=== PATIENT | male | born 1945 | race Caucasian/White ===

== ENCOUNTER 2018-04-25 12:27 | Day surgery (SDC) | payer MEDICARE, BC, SELFPAY ==
[2018-04-25 12:47] VITALS: BP 140/99; PULSE 58; RESP 16; TEMP 36.7; O2SAT 97
[2018-04-25] MEDS: Lactated Ringers 1,000 ML 80 ML IV (13:10)
--- NOTE | 2018-04-25 13:10 | W.PM.HP.N ---
Date of service: 04/25/18 Time of Service: 13:11 Assessment and Plan (1) Urothelial cell carcinoma of bladder: Current visit: Yes Status: Acute For cystoscopy with possible transurethral resection of bladder tumor. If no visible tumor is seen, we will switch his surveillance cystoscopies out to 6 months History of Present Illness Chief Complaint: Bladder cancer Narrative: This is a 72-year-old gentleman who has a history of noninvasive urothelial cell carcinoma of the bladder. He comes in for surveillance cystoscopy and possible transurethral resection. His last occurrence was April 2017. He is not having any gross hematuria. He has no flank pain. Review of Systems Constitutional Denies chills and Denies fever(s) Eyes Denies blurry vision and Denies loss of vision ENT Denies sore throat Cardiovascular Denies chest pain, Denies syncope and Denies irregular heart rhythm Respiratory Denies cough and Denies hemoptysis Gastrointestinal Denies nausea and Denies vomiting Musculoskeletal Reports arthralgias Neurologic Denies confusion, Denies syncope and Denies loss of vision Psychiatric Denies confusion PFSH Family History Mother Personal history of malignant neoplasm Father Hyperlipidemia Brother Personal history of malignant neoplasm Medical History DM (diabetes mellitus) Hypertension Hypothyroidism Social History Smoking/Tobacco Use Status: Former Tobacco Use Surgical History Colonoscopy - MAC (07/13/17) PROCEDURES Repair of inguinal hernia (~2003) TURBT Meds Home Medications Medication Instructions Recorded Confirmed Type ibuprofen 600 mg PO PRN 07/14/13 04/25/18 History naproxen sodium [Aleve] 440 mg PO daily prn 03/02/16 04/25/18 History allopurinol 100 mg PO DAILY #90 tab-cap 03/14/17 04/25/18 History levothyroxine 137 mcg PO DAILY #90 tab-cap 07/25/17 04/25/18 Rx Atorvastatin Calcium 10 mg PO DAILY #90 tab-cap 08/28/17 04/25/18 Clinic amlodipine 5 mg PO DAILY #90 tab-cap 09/07/17 04/23/18 Rx lisinopril-hydrochlorothiazide 1 tab-cap PO DAILY #90 tab-cap 10/12/17 04/25/18 Rx Proventil Hfa 1 - 2 puff INHALATION Q4H PRN #1 10/24/17 04/25/18 Clinic inhaler Mobile Broadcast NetworktoDecalog Ultra Test Strips 1 ea MISCELLANEOUS DAILY #90 strip 11/14/17 04/25/18 Clinic blood-glucose meter [Onetouch #1 kit 11/14/17 Rx Ultra2] lancets [Onetouch Lancets] #90 ea 11/14/17 Rx metformin 500 mg PO DAILY #90 tab 01/18/18 04/25/18 Rx fluoxetine 20 mg capsule 20 mg PO DAILY #90 cap 03/20/18 04/25/18 Rx dextromethorphan HBr [Day-Time 10 mg PO Q4H PRN 04/25/18 04/25/18 History Cough] Allergies Allergy/AdvReac Type Severity Reaction Status Date / Time amlodipine AdvReac Intermediate headache Unverified 04/25/18 12:38 Exam Narrative Exam Narrative: He is in no current distress. He is cooperative. He does not appear septic or toxic. His vital signs documented elsewhere in the chart. His chest wall motion is normal he is not short of breath at rest. His cardiac exam reveals regular rate and rhythm with no murmurs Abdomen is soft with no masses there is no guarding or rebound tenderness There is no edema in the lower extremities no amputations or deformities are found He is awake, alert and oriented. Results Last Vital Signs Temp 36.7 C 04/25/18 12:47 Pulse 58 L 04/25/18 12:47 Resp 16 04/25/18 12:47 BP 140/99 H 04/25/18 12:47 Pulse Ox 97 04/25/18 12:47
[2018-04-25] MEDS: Lidocaine 2% Jelly 11 ML SYR (13:57)
--- NOTE | 2018-04-25 14:08 | W.PM.DSUDISC ---
Discharge Plan Disposition Patient Disposition: HOME Condition: Stable Discharge Details Reason For Visit: BLADDER CA Attending Provider: Mode Nolasco Primary Care Provider: Etienne Gomez Home Meds and New Rx's Prescriptions: No Action ibuprofen 600 MG tablet 600 mg PO PRN RF: 0 naproxen sodium [Aleve] 220 MG capsule 440 mg PO daily prn RF: 0 allopurinol 100 MG tablet 100 mg PO DAILY Qty: 90 RF: 3 levothyroxine 137 MCG tablet 137 mcg PO DAILY Qty: 90 RF: 3 Atorvastatin Calcium 10 MG tablet 10 mg PO DAILY Qty: 90 RF: 3 amlodipine 5 MG tablet 5 mg PO DAILY Qty: 90 RF: 4 lisinopril-hydrochlorothiazide 1 EACH tablet 1 tab-cap PO DAILY Qty: 90 RF: 3 PROVENTIL HFA 18 GM HFA.AER.AD 1 - 2 puff Inhalation Q4H PRN Qty: 1 RF: 0 lancets [IPS Game FarmersTouch UltraSoft Lancets] 1 EACH misc 1 ea Miscellaneous DAILY Qty: 90 RF: 4 blood-glucose meter [IndiPharmuch Ultra2] 1 EACH kit 1 ea Miscellaneous DAILY Qty: 1 RF: 3 CrowdcastUCH ULTRA TEST STRIPS 1 EACH strip 1 ea Miscellaneous DAILY Qty: 90 RF: 3 metformin 500 MG tablet,ER fernando.retention 24 hr 500 mg PO DAILY Qty: 90 RF: 3 fluoxetine [Prozac] 20 mg capsule 20 mg PO DAILY Qty: 90 RF: 3 dextromethorphan HBr [Day-Time Cough] 5 mg/5 mL Syrup 10 mg PO Q4H PRNRF: 0 Discharge Instructions Additional Instructions: Pt will need next cystoscopy in 6 months - my office will contact him to arrange Activity:: Activity as Tolerated Diet:: As Tolerated Discharge Orders Discharge Orders: Discharge Order (Routine); Ordered 04/25/18 Ordered By: Mode Nolasco DS: Diagnosis Discharge Diagnosis (1) Urothelial cell carcinoma of bladder: Status: Acute
--- NOTE | 2018-04-25 14:11 | PDOC.DSDIS_ITS ---
Discharge Plan Disposition Patient Disposition: HOME Condition: Stable Discharge Details Reason For Visit: BLADDER CA Attending Provider: Mode Nolasco Primary Care Provider: Etienne Gomez Home Meds and New Rx's Prescriptions: No Action ibuprofen 600 MG tablet 600 mg PO PRN RF: 0 naproxen sodium [Aleve] 220 MG capsule 440 mg PO daily prn RF: 0 allopurinol 100 MG tablet 100 mg PO DAILY Qty: 90 RF: 3 levothyroxine 137 MCG tablet 137 mcg PO DAILY Qty: 90 RF: 3 Atorvastatin Calcium 10 MG tablet 10 mg PO DAILY Qty: 90 RF: 3 amlodipine 5 MG tablet 5 mg PO DAILY Qty: 90 RF: 4 lisinopril-hydrochlorothiazide 1 EACH tablet 1 tab-cap PO DAILY Qty: 90 RF: 3 PROVENTIL HFA 18 GM HFA.AER.AD 1 - 2 puff Inhalation Q4H PRN Qty: 1 RF: 0 lancets [NaveraTouch UltraSoft Lancets] 1 EACH misc 1 ea Miscellaneous DAILY Qty: 90 RF: 4 blood-glucose meter [doughuch Ultra2] 1 EACH kit 1 ea Miscellaneous DAILY Qty: 1 RF: 3 Redu.usUCH ULTRA TEST STRIPS 1 EACH strip 1 ea Miscellaneous DAILY Qty: 90 RF: 3 metformin 500 MG tablet,ER fernando.retention 24 hr 500 mg PO DAILY Qty: 90 RF: 3 fluoxetine [Prozac] 20 mg capsule 20 mg PO DAILY Qty: 90 RF: 3 dextromethorphan HBr [Day-Time Cough] 5 mg/5 mL Syrup 10 mg PO Q4H PRNRF: 0 Discharge Instructions Additional Instructions: Pt will need next cystoscopy in 6 months - my office will contact him to arrange Activity:: Activity as Tolerated Diet:: As Tolerated Discharge Orders Discharge Orders: Discharge Order (Routine); Ordered 04/25/18 Ordered By: Mode Nolasco DS: Diagnosis Discharge Diagnosis (1) Urothelial cell carcinoma of bladder: Status: Acute
[2018-04-25 14:35] VITALS: BP 139/92; PULSE 50; RESP 16; TEMP 36.5; O2SAT 99
[2018-04-25] MEDS: Phenazopyridine 200 MG TAB PO (14:45)
--- NOTE | 2018-04-25 16:06 | ROE_ITS ---
DATE OF SURGERY: April 25, 2018 PREOPERATIVE DIAGNOSIS: B ladder cancer. POSTOPERATIVE DIAGNOSIS: Same with no recurrence. PROCEDURE: Cystoscopy. SURGEON: Mode Nolasco M.D. ANESTHESIA: MAC with local. COMPLICATIONS: None. ESTIMATED BLOOD LOSS: Minimal. HISTORY: This is a 72-year-old gentleman who has a history of low grade noninvasive urothelial cell carcinoma of the bladder. His last occurrence was in April of 2017. He presents for surveillance cystoscopy. He is not having any gross hematuria or other lower urinary tract symptoms. OPERATIVE REPORT: The patient was brought to the operating room on 04/25/18. After being given MAC , he was placed in the dorsal lithotomy position. His genitalia was prepped and draped. 2% Xylocaine jelly was instilled into the urethra to act as a local anesthetic. A 22 Persian rigid c ystoscope was then passed through the urethra into the bladder. The urethra was inspected with a 30 degree lens. The pendulous, bulbous and membranous urethrae all appeared normal with no strictures. The prostatic urethra showed some lateral lobe enlargement and a rather prominent median lobe. No papillary lesio ns were noticed along the urethral mucosa. Once the bladder neck was entered, the bladder mucosa was inspected using both a 30 and a 70 degree l ens. The bladder was moderately trabeculated but I found no evidence of papillary or nodular lesions . As previously mentioned, there was a rather prominent median lobe. Both ureteral orifices were vi sualized and they appeared normal. Based on this examination, I found no evidence of recurrent bladder tumors. The bladder was emptied and the cystoscope was withdrawn.
== END 2018-04-25 15:17 | disposition home or self-care (01) ==
PROVIDERS: PCP Emergency Medicine; Visit Provider Urology
PROC: 0TBB8ZZ Excision of Bladder, Via Natural or Artificial Opening Endoscopic (ICD-10-PCS; CPT 52000; principal; 2018-04-25 13:30)
DX: Z08 Encounter for follow-up examination after completed treatment for malignant neoplasm (principal); Z85.51 Personal history of malignant neoplasm of bladder; N32.89 Other specified disorders of bladder
CPT/HCPCS: 52000; NC; J0690; J2250; J3010

== ENCOUNTER → 2018-04-30 09:31 | Outpatient (BNVA) | payer MEDICARE, SELFPAY | PROVIDERS: Visit Provider Urology | DX: R69 Illness, unspecified (principal) ==

== ENCOUNTER 2018-08-14 11:08 | Outpatient (CLI) | payer MEDICARE, BC, SELFPAY ==
[2018-08-14 13:09] LABS: Hemoglobin A1C 6.3 % (4.5-6.2)
[2018-08-14 13:23] LABS: TSH 1.69 uIU/mL (0.358-3.74)
[2018-08-14 17:38] LABS: Cholesterol 125 mg/dL (50-200); HDL Cholesterol 46 mg/dL (40-60); LDL CHOLESTEROL 63 mg/dL (<100); Triglyceride 104 mg/dL (30-150)
== END 2018-08-14 11:28 ==
PROVIDERS: PCP Emergency Medicine; Visit Provider Emergency Medicine
DX: E03.9 Hypothyroidism, unspecified (principal); E78.00 Pure hypercholesterolemia, unspecified; E11.9 Type 2 diabetes mellitus without complications
CPT/HCPCS: 36415; 80061; 83721; 83036; 84443

== ENCOUNTER 2018-11-07 07:11 | Day surgery (SDC) | payer MEDICARE, BC, SELFPAY ==
[2018-11-07 07:34] VITALS: BP 134/89; PULSE 66; RESP 16; TEMP 36.4; O2SAT 95
[2018-11-07] MEDS: Lactated Ringers 1,000 ML 80 ML IV (07:56)
--- NOTE | 2018-11-07 08:25 | HPE_ITS ---
Assessment and Plan (1) Urothelial cell carcinoma of bladder: Current visit: No Status: Acute For surveillance cystoscopy History of Present Illness Chief Complaint: Bladder cancer Narrative: This is a 73 year old man who has a history of urothelial cell carcinoma of the bladder. He presents for surveillance cystoscopy and possible TURBT. His last occurrance was 12/2017. His last pathology was low grade, noninvasive. Review of Systems Constitutional Comments: No fevers or chills No vision change or dysphasia c/o diabetes and hypothyroidism No shortness of breath, cough or hemoptysis No chest pain No nausea, vomiting, hepatitis, ulcers, jaundice, diarrhea or constipation No seizures, strokes or peripheral neuropathy No bleeding disorders or anemia No gout but elevated uric acid levels PFSH Family History Mother Personal history of malignant neoplasm Father Hyperlipidemia Brother Personal history of malignant neoplasm Social History Smoking/Tobacco Use Status: Former Tobacco Use Quit Date: 07/16/79 Alcohol Intake: current Alcohol Intake frequency: a few times a month Drug use: Never Details: last , sunday Do you feel safe at home: Yes Do you feel safe in your relationship?: Yes Additional Social history: NO Meds Home Medications Medication Instructions Recorded Confirmed Type ibuprofen 600 mg PO PRN 07/14/13 11/07/18 History naproxen sodium [Aleve] 440 mg PO daily prn 03/02/16 11/07/18 History lisinopril-hydrochlorothiazide 1 tab-cap PO DAILY #90 tab-cap 10/12/17 11/07/18 Rx Proventil Hfa 1 - 2 puff INHALATION Q4H PRN #1 10/24/17 11/05/18 Clinic inhaler Onetouch Ultra Test Strips 1 ea MISCELLANEOUS DAILY #90 strip 11/14/17 08/14/18 Clinic blood-glucose meter [Onetouch #1 kit 11/14/17 08/14/18 Rx Ultra2] lancets [Nanobiotixtouch Lancets] #90 ea 11/14/17 08/14/18 Rx metformin 500 mg PO DAILY #90 tab 01/18/18 11/07/18 Rx fluoxetine 20 mg capsule 20 mg PO DAILY #90 cap 03/20/18 11/07/18 Rx allopurinol 100 mg tablet 100 mg PO DAILY #90 tab-cap 05/15/18 11/07/18 Rx levothyroxine 137 mcg tablet 137 mcg PO DAILY #90 tab-cap 08/27/18 11/07/18 Rx atorvastatin 20 mg PO DAILY 11/05/18 11/07/18 History Allergies Allergy/AdvReac Type Severity Reaction Status Date / Time amlodipine AdvReac Intermediate headache Verified 11/05/18 16:31 Exam Const General: cooperative, healthy appearing and comfortable Neck Neck: supple Thyroid: no masses Resp Auscultation: clear to auscultation bilaterally Cardio Rate: regular rate Rhythm: regular rhythm GI Palpation: soft and no masses Neuro General: alert, awake and oriented x3 Results Last Vital Signs Temp 36.4 C L 11/07/18 07:34 Pulse 66 11/07/18 07:34 Resp 16 11/07/18 07:34 BP 134/89 11/07/18 07:34 Pulse Ox 95 11/07/18 07:34
[2018-11-07] MEDS: CIPROFLOXACIN 400 MG/200 ML BAG 200 MG IVPB (08:50)
[2018-11-07] MEDS: Lidocaine 2% Jelly 6 ML SYR (09:02)
--- NOTE | 2018-11-07 09:05 | PROST_PTH ---
PATIENT: Alfa Leon LOC: [facility] U#:[id number] AGE/SX: 73/M ROOM: RE11/07/[address]: Mode Nolasco MD : [id number] BED: DIS: 11/07/2018 SPEC #: [id number] RECD: 11/07/18 12:05 STATUS: BELA REAlexy #: [id number] IRINA: 11/07/18 09:[address]: Mode Nolasco DEPT: Surgical Specimen RECD BY: Alis Toussaint ENTERED: 11/07/18 12:06 SP TYPE: PROST OTHR DR: Etienne Gomez DO Tissues: 1 - PROSTATE CURRETTINGS Procedures: GROSS AND MICRO LEVEL 4 Comments: [id number]
--- NOTE | 2018-11-07 09:22 | W.PM.DSUDISC ---
Discharge Plan Disposition Patient Disposition: HOME Condition: Stable Discharge Details Reason For Visit: surgery Attending Provider: Mode Nolasco Primary Care Provider: Etienne Gomez Home Meds and New Rx's Prescriptions: No Action ibuprofen 600 MG tablet 600 mg PO PRN RF: 0 naproxen sodium [Aleve] 220 MG capsule 440 mg PO daily prn RF: 0 lisinopril-hydrochlorothiazide 1 EACH tablet 1 tab-cap PO DAILY Qty: 90 RF: 3 PROVENTIL HFA 18 GM HFA.AER.AD 1 - 2 puff Inhalation Q4H PRN Qty: 1 RF: 0 lancets [Jaschauch UltraSoft Lancets] 1 EACH misc 1 ea Miscellaneous DAILY Qty: 90 RF: 4 blood-glucose meter [Jaschauch Ultra2] 1 EACH kit 1 ea Miscellaneous DAILY Qty: 1 RF: 3 DraftDayUCH ULTRA TEST STRIPS 1 EACH strip 1 ea Miscellaneous DAILY Qty: 90 RF: 3 metformin 500 MG tablet,ER fernando.retention 24 hr 500 mg PO DAILY Qty: 90 RF: 3 fluoxetine [Prozac] 20 mg capsule 20 mg PO DAILY Qty: 90 RF: 3 allopurinol 100 mg tablet 100 mg PO DAILY Qty: 90 RF: 3 levothyroxine 137 mcg tablet 137 mcg PO DAILY Qty: 90 RF: 3 atorvastatin 20 mg tablet 20 mg PO DAILY RF: 0 Discharge Instructions Additional Instructions: Followup 1 to 2 weeks for pathology results Activity:: Activity as Tolerated Diet:: As Tolerated DS: Diagnosis Discharge Diagnosis (1) Urothelial cell carcinoma of bladder: Status: Acute
--- NOTE | 2018-11-07 09:26 | PDOC.DSDIS_ITS ---
Discharge Plan Disposition Patient Disposition: HOME Condition: Stable Discharge Details Reason For Visit: surgery Attending Provider: Mode Nolasco Primary Care Provider: Etienne Gomez Home Meds and New Rx's Prescriptions: No Action ibuprofen 600 MG tablet 600 mg PO PRN RF: 0 naproxen sodium [Aleve] 220 MG capsule 440 mg PO daily prn RF: 0 lisinopril-hydrochlorothiazide 1 EACH tablet 1 tab-cap PO DAILY Qty: 90 RF: 3 PROVENTIL HFA 18 GM HFA.AER.AD 1 - 2 puff Inhalation Q4H PRN Qty: 1 RF: 0 lancets [Tattoodouch UltraSoft Lancets] 1 EACH misc 1 ea Miscellaneous DAILY Qty: 90 RF: 4 blood-glucose meter [Tattoodouch Ultra2] 1 EACH kit 1 ea Miscellaneous DAILY Qty: 1 RF: 3 WellTrackOneUCH ULTRA TEST STRIPS 1 EACH strip 1 ea Miscellaneous DAILY Qty: 90 RF: 3 metformin 500 MG tablet,ER fernando.retention 24 hr 500 mg PO DAILY Qty: 90 RF: 3 fluoxetine [Prozac] 20 mg capsule 20 mg PO DAILY Qty: 90 RF: 3 allopurinol 100 mg tablet 100 mg PO DAILY Qty: 90 RF: 3 levothyroxine 137 mcg tablet 137 mcg PO DAILY Qty: 90 RF: 3 atorvastatin 20 mg tablet 20 mg PO DAILY RF: 0 Discharge Instructions Additional Instructions: Followup 1 to 2 weeks for pathology results Activity:: Activity as Tolerated Diet:: As Tolerated DS: Diagnosis Discharge Diagnosis (1) Urothelial cell carcinoma of bladder: Status: Acute
[2018-11-07] MEDS: Phenazopyridine 200 MG TAB PO ×2 (10:03→10:08)
[2018-11-07] MEDS: traMADol 50 MG TAB PO ×2 (10:04→10:09)
[2018-11-07 10:27] VITALS: BP 131/86; PULSE 53; RESP 16; TEMP 36.3; O2SAT 97
--- NOTE | 2018-11-08 07:07 | ROE_ITS ---
REPORT OF OPERATIVE PROCEDURE DATE OF PROCEDURE: November 07, 2018 PREOPERATIVE DIAGNOSIS: Bladder cancer. POSTOPERATIVE DIAGNOSES: Bladder Cancer with pathology pending. PROCEDURES: Cystoscopy, transurethral resection of bladder neck, fulguration of bladder lesions. SURGEON: Mode Nolasco M.D. ANESTHESIA: General. COMPLICATIONS: None. ESTIMATED BLOOD LOSS: Minimal. HISTORY: This is a 73-year-old gentleman who has a history of urothelial cell carcinoma of the bladder. His la st occurrence was nearly a year ago. His tumor was low-grade and noninvasive. He presents for surveil yrn cystoscopy. OPERATIVE REPORT: The patient was brought to the Operating Room on 11/07/2018 . After successful induction of general anesthesia, he was placed in the dorsal lithotomy position. His genitalia was prepped and draped. A vial of 2% Xylocaine jelly was instilled into the urethra to act as a local anesthetic. A #24-Greek resectoscope sheath was passed through the urethra into the bladder. We used a visual o bturator to inspect the urethral and bladder mucosae. The pendulous, bulbous and membranous urethras appeared normal with no strictures. The prostatic uret hra showed lateral lobe enlargement. Toward the bladder neck, there did appear to be papillary mucos a within both the prostatic urethra and the bladder neck area. Once the bladder neck was entered and the bladder mucosa was inspected, we identified a few small pap illary patches on the left posterior wall. No large papillary or nodular lesions were seen. We then used bipolar cautery and Monet Resectoscope to resect the visible papillary lesions in the prostatic urethra. We extended our resection deeper into the prosthetic substance for staging purpos es. We then cauterized the resected area using the coagulation current. At the completion of the procedure, all resected tissue was evacuated and sent to Pathology for perma nent section. The patient tolerated this procedure well. There were no complications. He was taken to the Recovery Room in stable condition. CC: Etienne Gomez D.O.
== END 2018-11-07 11:30 | disposition home or self-care (01) ==
PROVIDERS: PCP Emergency Medicine; Visit Provider Urology
PROC: 0TBB8ZZ Excision of Bladder, Via Natural or Artificial Opening Endoscopic (ICD-10-PCS; CPT 52224; principal; 2018-11-07 08:30)
DX: C67.9 Malignant neoplasm of bladder, unspecified (principal); Z08 Encounter for follow-up examination after completed treatment for malignant neoplasm
CPT/HCPCS: 52224; 88305; NC; J0131; J0744; J1100; J1885; J2250; J2405

== ENCOUNTER → 2018-11-21 10:58 | Outpatient (BNVA) | payer MEDICARE, BC, SELFPAY | PROVIDERS: PCP Emergency Medicine; Visit Provider Urology | DX: C67.9 Malignant neoplasm of bladder, unspecified (principal); I10 Essential (primary) hypertension; E11.9 Type 2 diabetes mellitus without complications | CPT/HCPCS: 99213 ==

== ENCOUNTER 2018-12-19 09:54 | Outpatient (CLI) | payer MEDICARE, BC, SELFPAY ==
[2018-12-19 11:49] LABS: Bilirubin Negative (Negative); Blood Moderate (Negative); Clarity Sl Cloudy; Glucose Negative (Negative); Ketones Negative (Negative); Leukocyte Esterase Small (Negative); Nitrite Negative (Negative); Specific Gravity 1.025 (1.005-1.025); Urobilinogen 0.2 EU/dL (Up TO 0.2); pH 5.5 (5-8)
[2018-12-19 12:11] LABS: WBC 20-50 HPF (0-5)
[2018-12-19 12:12] LABS: C & S Indicated? Yes; RBC >50 (0-2)
== END 2018-12-19 10:14 ==
PROVIDERS: PCP Emergency Medicine; Visit Provider Urology
DX: N39.41 Urge incontinence (principal)
CPT/HCPCS: 81003; 81015; 87086

== ENCOUNTER 2019-03-20 03:23 | Outpatient (CLI) | payer MEDICARE, BC, SELFPAY ==
[2019-03-20 10:10] LABS: Anion Gap 8.3 mmol/L (3-11); BUN 23 mg/dL (7-18); CO2 26.7 mmol/L (21.0-32.0); CREATININE 0.95 mg/dL (0.70-1.30); Calcium 8.8 mg/dL (8.5-10.1); Chloride 108 mmol/L (98-107); Glucose 131 mg/dL (70-100); Potassium 4.4 mmol/L (3.5-5.1); Sodium 143 mmol/L (136-145)
[2019-03-20 12:49] LABS: Hemoglobin A1C 6.5 % (4.5-6.2)
== END 2019-03-20 03:43 ==
PROVIDERS: PCP Emergency Medicine; Visit Provider Emergency Medicine
DX: E11.9 Type 2 diabetes mellitus without complications (principal)
CPT/HCPCS: 36415; 80048; 83036

== ENCOUNTER 2019-03-20 09:18 | Day surgery (SDC) | payer MEDICARE, BC, SELFPAY ==
[2019-03-20 09:44] VITALS: BP 132/90; PULSE 56; RESP 16; TEMP 36.2; O2SAT 97
[2019-03-20] MEDS: Lactated Ringers 1,000 ML 80 ML IV (10:20)
--- NOTE | 2019-03-20 10:43 | W.PM.HP.N ---
Date of service: 03/20/19 Time of Service: 10:56 Assessment and Plan (1) Urothelial cell carcinoma of bladder: Current visit: No Status: Acute For cystoscopy and possible TURBT History of Present Illness Chief Complaint: Bladder cancer Narrative: This is a 73-year-old gentleman who has a history of low-grade noninvasive urothelial cell carcinoma of the bladder. His most recent tissue was resected in October of this year. The pathology report indicates a urothelial tumor of low malignant potential. He presents for cystoscopy. He has no gross hematuria. He developed a urinary tract infection after his previous cystoscopy. He had some incontinence with the urinary tract infection but is now back to his baseline. Review of Systems Review of Systems No fevers or chills No vision change or dysphasia Hypothyroidism and diabetes No shortness of breath, cough or hemoptysis No chest pain or palpitations No nausea, vomiting, hepatitis, ulcers, jaundice, diarrhea or constipation No seizures, strokes or peripheral neuropathy No bleeding disorders or anemia No gout. Hx low back pain PFSH Medical History (Updated 02/07/19 @ 10:32 by Naveed Dukes) BPH associated with nocturia (Acute 12/06/16) Cardiac arrhythmia (Acute 06/14/07) SINUS LISSA Depressive disorder (Acute) Diabetes mellitus (Acute) diet controlled DM (diabetes mellitus) Elev transaminase/LDH (Acute 06/14/07) elevated LFT's; (4 drinks/night) elevated GGT; neg. viral hep screen; neg. ferritin; LFT's decreased off ETOH arora Essential hypertension (Acute) Hypercholesterolemia (Acute) Hypertension Hyperuricemia (Acute 12/06/16) gout Hypothyroidism Hypothyroidism (Acute) Lumbago (Acute) disc surgery 2003 Urothelial cell carcinoma of bladder (Acute) Surgical History (Updated 03/20/19 @ 09:44 by Blanca Castaneda) Colonoscopy - MAC (07/13/17) H/O Achilles tendon repair (Acute) right PROCEDURES EXC/DEST INTVRT DISC NOS, 2004 05/10/17 DR. PIZARRO; CYSTOSCOPY, B/L RETROGRADE PYELOGRAM, BLADDER BX WITH FULGURATION Repair of inguinal hernia (~2003) TURBT 01/26/17-DR. PIZARRO Family History Mother Personal history of malignant neoplasm COLON Father Hyperlipidemia Brother Personal history of malignant neoplasm SKIN Social History Smoking/Tobacco Use Status: Former Tobacco Use Quit Date: 07/16/79 Alcohol Intake: current Alcohol Intake frequency: a few times a month Drug use: Never Substance use type: does not use Do you feel safe at home: Yes Do you feel safe in your relationship?: Yes Additional Social history: NO Meds Home Medications Medication Instructions Recorded Confirmed Type ibuprofen 600 mg PO PRN 07/14/13 03/20/19 History naproxen sodium [Aleve] 440 mg PO daily prn 03/02/16 03/20/19 History Onetouch Ultra Test Strips 1 ea MISCELLANEOUS DAILY #90 strip 11/14/17 03/20/19 Clinic blood-glucose meter [Onetouch #1 kit 11/14/17 02/12/19 Rx Ultra2] lancets [Onetouch Lancets] #90 ea 11/14/17 02/12/19 Rx fluoxetine 20 mg capsule 20 mg PO DAILY #90 cap 03/20/18 03/20/19 Rx allopurinol 100 mg tablet 100 mg PO DAILY #90 tab-cap 05/15/18 03/20/19 Rx levothyroxine 137 mcg tablet 137 mcg PO DAILY #90 tab-cap 08/27/18 03/20/19 Rx blood sugar diagnostic #100 each 12/03/18 02/12/19 Rx lisinopril 20 1 tab PO DAILY #90 tab-cap 12/24/18 03/20/19 Rx mg-hydrochlorothiazide 12.5 mg tablet atorvastatin 20 mg tablet 20 mg PO DAILY #90 tab 01/28/19 03/20/19 Rx metformin 500 mg 24 hr 500 mg PO DAILY #90 tab 02/20/19 03/20/19 Rx tablet,extended release Allergies Allergy/AdvReac Type Severity Reaction Status Date / Time amlodipine AdvReac Intermediate headache Verified 03/20/19 09:39 Exam Narrative Exam Narrative: He is in no current distress. He is cooperative. His vital signs are documented elsewhere. His chest wall motion is normal. His lungs are clear. Cardiac exam shows a regular rate and rhythm. His abdomen is soft with no masses. There is no edema in the lower extremities. He is awake, alert and oriented. Results Last Vital Signs Temp 36.2 C L 03/20/19 09:44 Pulse 56 L 03/20/19 09:44 Resp 16 03/20/19 09:44 BP 132/90 03/20/19 09:44 Pulse Ox 97 03/20/19 09:44
[2019-03-20] MEDS: ceFAZolin 1 GM/50 ML BAG IVPB (11:29)
[2019-03-20] MEDS: Lidocaine 2% Jelly 6 ML SYR (11:38)
--- NOTE | 2019-03-20 11:42 | W.PM.DSUDISC ---
Discharge Plan Disposition Patient Disposition: HOME Condition: Stable Discharge Details Reason For Visit: cysto Attending Provider: Mode Nolasco Primary Care Provider: Etienne Gomez Home Meds and New Rx's Prescriptions: No Action ibuprofen 600 MG tablet 600 mg PO PRN RF: 0 naproxen sodium [Aleve] 220 MG capsule 440 mg PO daily prn RF: 0 (DME) lancets [OneTouch UltraSoft Lancets] 1 EACH misc 1 ea Miscellaneous DAILY Qty: 90 RF: 4 (DME) blood-glucose meter [United KeysTouch Ultra2 Meter] 1 EACH kit 1 ea Miscellaneous DAILY Qty: 1 RF: 3 NexterraTOUCH ULTRA TEST STRIPS 1 EACH strip 1 ea Miscellaneous DAILY Qty: 90 RF: 3 fluoxetine [Prozac] 20 mg capsule 20 mg PO DAILY Qty: 90 RF: 3 allopurinol 100 mg tablet 100 mg PO DAILY Qty: 90 RF: 3 levothyroxine 137 mcg tablet 137 mcg PO DAILY Qty: 90 RF: 3 (DME) OneTouch Ultra Blue Test Strip strip See Dose Instructions .ROUTE .MEDSUPPLY Qty: 100 RF: 4 lisinopril-hydrochlorothiazide 20-12.5 mg tablet 1 tab PO DAILY Qty: 90 RF: 3 atorvastatin 20 mg tablet 20 mg PO DAILY Qty: 90 RF: 3 metformin 500 mg tablet,ER fernando.retention 24 hr 500 mg PO DAILY Qty: 90 RF: 3 Discharge Instructions Additional Instructions: Will need repeat cysto in 6 months - can be done in office or in OR (so far, pt has opted to have done in the OR) Activity:: Activity as Tolerated Shower/Bathe:: 24 hours Diet:: As Tolerated DS: Diagnosis Discharge Diagnosis (1) Urothelial cell carcinoma of bladder: Status: Acute
[2019-03-20 12:29] VITALS: BP 153/97; PULSE 49; RESP 16; TEMP 36.4; O2SAT 96
[2019-03-20] MEDS: Phenazopyridine 200 MG TAB PO (12:42)
--- NOTE | 2019-03-21 06:55 | ROE_ITS ---
REPORT OF OPERATIVE PROCEDURE DATE OF PROCEDURE March 20, 2019 PREOPERATIVE DIAGNOSIS Bladder tumor. POSTOPERATIVE DIAGNOSES Bladder tumor with no recurrence. PROCEDURE Cystoscopy. SURGEON Mode Nolasco M.D. ANESTHESIA MAC with local. COMPLICATIONS: None. HISTORY The patient is a 73-year-old gentleman who has a history of low-grade noninvasive urothelial cell car cinoma of the bladder. He presents for surveillance cystoscopy. His last resection from three months ago showed a urothelial lesion of low malignant potential. OPERATIVE REPORT The patient was brought to the Operating Room on 03/20/2019. After successful induction of Monitored Anesthesia Care, he was placed in the dorsal lithotomy position. His genitalia were prepped and drape d; 2% Xylocaine jelly was instilled into the urethra to act as a local anesthetic. A #22-Trinidadian rigid cystoscope was passed through the urethra into the bladder. The bladder was inspec deana using the 30-degree lens. The pendulous, bulbous and membranous urethras showed a few narrowed areas, but I was able to negotia te the scope through them quite easily. The prostatic urethra showed some lateral lobe enlargement, b ut no significant median lobe. The bladder neck was entered and the bladder mucosa was inspected, both ureteral orifices appeared no rmal. No blood was seen coming from either side. Multiple scars were seen on the posterior bladder w all. No papillary or nodular lesions were identified. No concerning erythematous patches were seen. These findings were confirmed on re-inspection of the bladder using a 70-degree lens. Based on today's examination, there is no evidence of tumor recurrence. The bladder was emptied and t he scope was removed. CC: Etienne Gomez D.O.
== END 2019-03-20 13:25 | disposition home or self-care (01) ==
PROVIDERS: PCP Emergency Medicine; Visit Provider Urology
PROC: 0TBB8ZZ Excision of Bladder, Via Natural or Artificial Opening Endoscopic (ICD-10-PCS; CPT 52000; principal; 2019-03-20 11:30)
DX: Z85.51 Personal history of malignant neoplasm of bladder (principal); Z08 Encounter for follow-up examination after completed treatment for malignant neoplasm; E11.9 Type 2 diabetes mellitus without complications; I10 Essential (primary) hypertension
CPT/HCPCS: 52000; 36415; 80048; NC; 83036; J0690; J1885; J2405

== ENCOUNTER 2019-08-27 07:46 | Outpatient (CLI) | payer MEDICARE, BC, SELFPAY ==
[2019-08-27 13:09] LABS: Anion Gap 9.5 mmol/L (3-11); BUN 22 mg/dL (7-18); CO2 28.5 mmol/L (21.0-32.0); CREATININE 0.93 mg/dL (0.70-1.30); Calcium 9.4 mg/dL (8.5-10.1); Chloride 105 mmol/L (98-107); Glucose 102 mg/dL (74-106); Potassium 4.3 mmol/L (3.5-5.1); Sodium 143 mmol/L (136-145)
[2019-08-27 13:19] LABS: COMMENT (LAB VIEW ONLY) 65.09 mg/dL; Microalb ug/mg Crea 11.5 ug/mg Cr
[2019-08-27 13:21] LABS: Hemoglobin A1C 6.4 % (3.8-5.6)
== END 2019-08-27 08:06 ==
PROVIDERS: PCP Emergency Medicine; Visit Provider Emergency Medicine
DX: E11.9 Type 2 diabetes mellitus without complications (principal); I10 Essential (primary) hypertension
CPT/HCPCS: 36415; 80048; 82043; 82570; 83036

== ENCOUNTER 2020-02-13 07:55 | Outpatient (CLI) | payer MEDICARE, BC, SELFPAY ==
[2020-02-16 13:52] LABS: SARS-CoV-2 RNA Undetected (Undetected); SARS-CoV-2 Specimen Source Nasopharynx
== END 2020-02-13 08:15 ==
PROVIDERS: PCP Emergency Medicine; Visit Provider Emergency Medicine
DX: Z11.59 Encounter for screening for other viral diseases (principal)
CPT/HCPCS: U0003

== ENCOUNTER 2020-06-18 01:28 | Outpatient (CLI) | payer MEDICARE, BC, SELFPAY ==
[2020-06-18 13:07] LABS: Hemoglobin A1C 5.7 % (<5.7)
[2020-06-18 13:19] LABS: ALT 24 U/L (16-63); AST 12 U/L (15-37); Alkaline Phosphatase 67 U/L (46-116); Anion Gap 7.5 mmol/L (3-11); BUN 22 mg/dL (7-18); Bilirubin, Direct 0.13 mg/dL (0.00-0.20); Bilirubin, Total 0.5 mg/dL (0.2-1.0); CO2 27.5 mmol/L (21.0-32.0); CREATININE 0.96 mg/dL (0.70-1.30); Calcium 9.3 mg/dL (8.5-10.1); Chloride 106 mmol/L (98-107); Glucose 107 mg/dL (74-106); Potassium 4.1 mmol/L (3.5-5.1); Sodium 141 mmol/L (136-145); TSH 0.58 uIU/mL (0.36-3.74); Total Protein 6.8 g/dL (6.4-8.2)
== END 2020-06-18 01:48 ==
PROVIDERS: PCP Emergency Medicine; Visit Provider Emergency Medicine
DX: I10 Essential (primary) hypertension (principal); E03.9 Hypothyroidism, unspecified; E11.9 Type 2 diabetes mellitus without complications; R74.01 Elevation of levels of liver transaminase levels
CPT/HCPCS: 36415; 80048; 80076; 83036; 84443

== ENCOUNTER 2020-07-05 02:55 | Outpatient (CLI) | payer MEDICARE, BC, SELFPAY ==
[2020-07-06 21:52] LABS: COVID-19 RT-PCR UVMMC Result Negative (Negative)
== END 2020-07-05 03:15 ==
PROVIDERS: PCP Emergency Medicine; Visit Provider Emergency Medicine
DX: Z20.828 Contact with and (suspected) exposure to other viral communicable diseases (principal)
CPT/HCPCS: U0003

== ENCOUNTER 2020-10-25 03:27 | Outpatient (CLI) | payer MEDICARE, BC, SELFPAY ==
[2020-10-26 14:15] LABS: COVID-19 RT-PCR UVMMC Result Negative (Negative)
== END 2020-10-25 03:28 | disposition home or self-care (01) ==
LOC: LBO 03:28
PROVIDERS: PCP Emergency Medicine; Visit Provider Emergency Medicine
DX: Z20.822 Contact with and (suspected) exposure to COVID-19 (principal)
CPT/HCPCS: U0003; U0005

== ENCOUNTER 2020-10-27 17:33 | Outpatient (REF) | payer MEDICARE, BC, SELFPAY ==
[2020-10-27 22:07] LABS: Anion Gap 8.6 mmol/L (3-11); BUN 25 mg/dL (7-18); CO2 27.4 mmol/L (21.0-32.0); Calcium 9.4 mg/dL (8.5-10.1); Calculated LDL 44 mg/dL (<100); Chloride 106 mmol/L (98-107); Cholesterol 142 mg/dL (<200); Glucose 93 mg/dL (74-106); HDL Cholesterol 48 mg/dL (40-60); Sodium 142 mmol/L (136-145); Triglyceride 250 mg/dL (<150)
== END 2020-10-27 17:34 | disposition home or self-care (01) ==
LOC: LBN 17:33
PROVIDERS: PCP Emergency Medicine; Visit Provider Emergency Medicine
DX: I10 Essential (primary) hypertension (principal)
CPT/HCPCS: 80048; 80061

== ENCOUNTER → 2020-12-10 07:59 | Outpatient (BNVA) | payer MEDICARE, SELFPAY | PROVIDERS: PCP Emergency Medicine; Referring Provider Emergency Medicine; Visit Provider Urology | DX: R69 Illness, unspecified (principal) ==

== ENCOUNTER → 2020-12-21 15:21 | Outpatient (BNVA) | payer MEDICARE, BC, SELFPAY | PROVIDERS: PCP Emergency Medicine; Referring Provider Emergency Medicine; Visit Provider Urology | DX: C67.9 Malignant neoplasm of bladder, unspecified (principal); N39.41 Urge incontinence | CPT/HCPCS: 81003; 99213 ==

== ENCOUNTER 2021-03-08 04:05 | Outpatient (CLI) | payer MEDICARE, BC, SELFPAY ==
[2021-03-08 12:42] LABS: Source Nasal/Nares
[2021-03-08 15:33] LABS: COVID-19 PCR Negative (Negative)
== END 2021-03-08 04:06 | disposition home or self-care (01) ==
LOC: LBO 04:06
PROVIDERS: PCP Emergency Medicine; Visit Provider Urology
DX: Z20.822 Contact with and (suspected) exposure to COVID-19 (principal); Z01.818 Encounter for other preprocedural examination
CPT/HCPCS: 87635

== ENCOUNTER 2021-03-10 07:33 | Day surgery (SDC) | payer MEDICARE, BC, SELFPAY ==
--- NOTE | 2021-03-10 07:16 | HPE_ITS ---
Date of service: 03/10/21 Time of Service: 07:16 Assessment and Plan Assessment and plan (1) Bladder cancer: Status: Acute Assessment and plan: For surveillance cystoscopy with possible TURBT (as part of his routine bladder cancer followup) History of Present Illness History of Present Illness Chief Complaint: Bladder cancer Narrative: This is a 75 year old man who has a history of low grade, noninvasive urothelial cell carcinoma of the bladder. His initial diagnosis was in 2017. His more recent recurrence was in 2019. He presents for surveillance cystoscopy. He is not seeing any gross hematuria. Review of Systems Narrative: No fevers or chills Wears glasses. Decreased hearing acuity. No dysphasia Hx hypothyroidism. No diabetes No shortness of breath, cough or hemoptysis No chest pain No nausea, vomiting, hepatitis, ulcers, jaundice No seizures, strokes or peripheral neuropathy No bleeding disorders or anemia No gout PFSH Medical History Bladder cancer BPH associated with nocturia (12/06/16) Cardiac arrhythmia (06/14/07) SINUS LISSA Depressive disorder Diabetes mellitus diet controlled DM (diabetes mellitus) Elev transaminase/LDH (06/14/07) elevated LFT's; (4 drinks/night) elevated GGT; neg. viral hep screen; neg. ferritin; LFT's decreased off ETOH arora Essential hypertension Hearing loss Hypercholesterolemia Hypertension Hyperuricemia (12/06/16) gout Hypothyroidism Hypothyroidism Lumbago disc surgery 2003 Urgency incontinence Urothelial cell carcinoma of bladder Surgical History Colonoscopy - MAC (07/13/17) H/O Achilles tendon repair right PROCEDURES EXC/DEST INTVRT DISC NOS, 2004 05/10/17 DR. PIZARRO; CYSTOSCOPY, B/L RETROGRADE PYELOGRAM, BLADDER BX WITH FULGURATION Repair of inguinal hernia (~2003) TURBT 01/26/17-DR. PIZARRO Family History (Updated 10/29/20 @ 14:11 by Tran Zarate) Mother Personal history of malignant neoplasm COLON Father Hyperlipidemia Brother Personal history of malignant neoplasm SKIN Social History (Updated 10/29/20 @ 14:10 by Tran Zarate) Smoking/Tobacco Use Status: Former Tobacco Use tobacco type: cigarettes and pipe Quit Date: 01/01/80 Second Hand Exposure: Yes Smoking risk assessment performed?: Yes Alcohol Intake: current Alcohol Intake frequency: a few times a month Alcohol type: beer and wine Drug use: Occasionally Substance use type: marijuana Caregiver/Support person: No Household members: spouse Housing: house Communication Needs: Hard of Hearing Do you need help understanding health information?: Never Pets and animals: Yes Sexually active: Yes Do you think of yourself as: straight/heterosexual Current gender identity: male What is your relationship status?: How often do you talk on the phone with friends or family?: once per week How often do you get together with friends or relatives?: once per week How often do you attend latter day or synagogue services?: 1-3 times per year Do you belong to any clubs or organized social groups?: no Panel score (0-1 are the most socially isolated patients): 1 What type of physical activity do you participate in: walking Duration: 15-30 minutes/day Frequency: 1-2 times per week Seatbelt use: always Drive intox or ride w/intox route relief driver: No Do you feel safe at home: Yes Do you feel safe in your relationship?: Yes Meds Allergies and Home Medications Allergies Allergy/AdvReac Type Severity Reaction Status Date / Time amlodipine AdvReac Intermediate headache Verified 03/10/21 08:05 Home Medications Medication Instructions Recorded Confirmed Type naproxen sodium [Aleve] 440 mg PO daily prn 03/02/16 03/10/21 History Onetouch Ultra Test Strips 1 ea MISCELLANEOUS DAILY #90 strip 11/14/17 03/10/21 Clinic blood-glucose meter [Onetouch #1 kit 11/14/17 03/09/21 Rx Ultra2] lancets [Onetouch Lancets] #90 ea 11/14/17 03/09/21 Rx lisinopril 20 0.5 tab PO DAILY #90 tab-cap 02/10/20 03/10/21 Rx mg-hydrochlorothiazide 12.5 mg tablet fluoxetine 20 mg capsule 20 mg PO DAILY #90 cap 04/19/20 03/10/21 Rx tamsulosin 0.4 mg capsule 0.4 mg PO QHS #90 cap 04/27/20 03/10/21 Rx allopurinol 100 mg tablet 100 mg PO DAILY #90 tab-cap 06/29/20 03/10/21 Rx blood sugar diagnostic #100 each 07/12/20 03/09/21 Rx metformin 500 mg tablet 500 mg PO BID #180 tab 10/13/20 03/10/21 Rx blood sugar diagnostic #100 ea 10/15/20 03/09/21 Rx levothyroxine 137 mcg tablet 137 mcg PO DAILY #90 tab-cap 11/02/20 03/10/21 Rx atorvastatin 20 mg tablet 20 mg PO DAILY #90 tab 02/11/21 03/10/21 Rx Exam Const General: cooperative, comfortable and no acute distress Neck Neck: supple Resp Effort & Inspection: normal respiratory effort Auscultation: clear to auscultation bilaterally Cardio Rate: regular rate Rhythm: regular rhythm GI Rectal Exam: No mass Neuro General: patient alert, patient awake and patient oriented x3
[2021-03-10] MEDS: Lactated Ringers 1,000 ML 80 ML IV (07:58)
--- NOTE | 2021-03-10 08:00 | ANES.PREOP_ITS ---
General Info Date of Service Date Performed: 03/10/21 Height: 5 ft 11 in Weight: 99.507 kg Body Mass Index (BMI): 30.6 Surgical Procedure: Operation Date: 03/10/21 09:10 Proposed Procedures Side Surgeon p CYSTO, ?Transurethral Resection Bladder Tumor Mode Nolasco MD Meds Allergies and Home Medications Allergies Allergy/AdvReac Type Severity Reaction Status Date / Time amlodipine AdvReac Intermediate headache Verified 03/09/21 09:39 Home Medication Medication Instructions Recorded naproxen sodium [Aleve] 440 mg PO daily prn 03/02/16 blood-glucose meter [Hometappertouch #1 kit 11/14/17 Ultra2] lancets [Hometappertouch Lancets] #90 ea 11/14/17 lisinopril 20 0.5 tab PO DAILY #90 tab-cap 02/10/20 mg-hydrochlorothiazide 12.5 mg tablet fluoxetine 20 mg capsule 20 mg PO DAILY #90 cap 04/19/20 tamsulosin 0.4 mg capsule 0.4 mg PO QHS #90 cap 04/27/20 allopurinol 100 mg tablet 100 mg PO DAILY #90 tab-cap 06/29/20 blood sugar diagnostic #100 each 07/12/20 metformin 500 mg tablet 500 mg PO BID #180 tab 10/13/20 blood sugar diagnostic #100 ea 10/15/20 levothyroxine 137 mcg tablet 137 mcg PO DAILY #90 tab-cap 11/02/20 atorvastatin 20 mg tablet 20 mg PO DAILY #90 tab 02/11/21 Current Visit Medications: Current Medications Generic Name Dose Route Start Last Admin Trade Name Freq PRN Reason Stop Dose Admin Ringer's Solution 1,000 mls @ 80 mls/hr 03/10/21 06:00 03/10/21 07:58 IV 04/08/21 23:59 80 mls/hr INFUSION DIDI Administration Cefazolin Sodium/Dextrose 1 gm in 50 mls @ 100 mls/hr 03/10/21 06:00 Ancef Duplex IVPB 03/10/21 16:00 PREOP DIDI IV Miscellaneous Supplies 1 each 03/10/21 06:00 Iv Access IV 04/08/21 23:59 DIRECTED DIDI Sodium Chloride 0 ml 03/10/21 06:00 Normal Saline Flush 10 Ml Syr IV 04/08/21 23:59 PRN PRN Sodium Chloride 0 ml 03/10/21 06:00 Normal Saline 10 Ml Vial IJ 04/08/21 23:59 DIRECTED PRN Sterile Water 0 ml 03/10/21 06:00 Water,Injection,Sterile 10 Ml Vial IJ 04/08/21 23:59 DIRECTED PRN PFSH Active Problems Active Problems: Problem Status Onset Code Urgency incontinence N39.41 Sensorineural hearing loss (SNHL) of both ears H90.3 Bladder cancer C67.9 Hearing loss H91.90 Acute pain of left ear H92.02 Status post inguinal hernia repair Z98.890, Z87.19 Olecranon bursitis M70.20 History of discectomy Z98.890 History of Achilles tendon repair 09/01/15 Z98.890 Lumbago M54.5 Hypothyroidism E03.9 Hyperuricemia 12/06/16 E79.0 Hypercholesterolemia E78.00 Essential hypertension I10 Elev transaminase/LDH 06/14/07 R74.0 Diabetes mellitus E11.9 Depressive disorder F32.9 BPH associated with nocturia 12/06/16 N40.1, R35.1 Cardiac arrhythmia 06/14/07 I49.9 Urothelial cell carcinoma of bladder Medical History Medical History Bladder cancer BPH associated with nocturia (12/06/16) Cardiac arrhythmia (06/14/07) SINUS LISSA Depressive disorder Diabetes mellitus diet controlled DM (diabetes mellitus) Elev transaminase/LDH (06/14/07) elevated LFT's; (4 drinks/night) elevated GGT; neg. viral hep screen; neg. ferritin; LFT's decreased off ETOH arora Essential hypertension Hearing loss Hypercholesterolemia Hypertension Hyperuricemia (12/06/16) gout Hypothyroidism Hypothyroidism Lumbago disc surgery 2003 Urgency incontinence Urothelial cell carcinoma of bladder Surgical History Surgical History Colonoscopy - MAC (07/13/17) H/O Achilles tendon repair right PROCEDURES EXC/DEST INTVRT DISC NOS, 200305/10/17 DR. NOLASCO; CYSTOSCOPY, B/L RETROGRADE PYELOGRAM, BLADDER BX WITH FULGURATION Repair of inguinal hernia (~2003) TURBT 01/26/17-DR. NOLASCO Tobacco Smoking/Tobacco Use Status: Former Tobacco Use Passive smoking exposure: Yes Second hand exposure: Yes Alcohol Alcohol Intake: current Alcohol intake frequency: a few times a month Alcohol type: beer and wine Substance Use Substance use: Occasionally Substance use type: marijuana Vital Signs and Lab Results Lab Results Blood Type / Crossmatch: No Data to Display Complete Blood Count: No Data to Display Complete Metabolic Panel: No Data to Display Liver Function Panel: No Data to Display Coagulation Panel: No Data to Display Cardiac Panel: No Data to Display Arterial Blood Gas: No Data to Display Venous Blood Gas: No Data to Display Pancreas Panel: No Data to Display Thyroid Panel: No Data to Display Infectious Disease: Coronavirus (COVID-19)(PCR) Negative (Negative) 03/08/21 11:00 03/08/21 Coronavirus 2019 Source Nasal/Nares 03/08/21 11:00 03/08/21 Blood Cultures: No Data to Display Toxicology Panel: No Data to Display Anesthesia Assessment and Plan Anesthesia History Personal History: No History of Anesthesia Complications Family History: No Family History of Anesthesia Complications Exercise Tolerance Exercise Tolerance: Metabolic Equivalents>4 Pertinent Negatives Pertinent Negatives: No Symptoms of GERD, No Major Cardiovascular Symptoms or Complaints and No Major Pulmonary Symptoms or Complaints Cardiac & Pulmonary Exam Cardiac Exam: Normal S1/S2 Heart Sounds Pulmonary Exam: Clear Bilateral Breath Sounds Airway Exam Known Difficult Airway: No Mallampati Class: 2 Mouth Opening: Normal (> 3cm) Thyromental Distance: Greater than 3 cm Facial Hair: Full Mercado Neck Range of Motion: Full ROM Neck Circumference: Normal Teeth Condition: Normal Dentition ASA Classification ASA Score: ASA 2 Emergency Case?: No NPO Status NPO Status: NPO Clears >2 hours, Solids >8 hours Anesthesia Plan Resuscitation Status: Full Code Anesthesia Technique: General Anesthesia Airway Planned: Natural Airway Monitors Used: Standard Monitors
[2021-03-10 08:01] VITALS: BP 135/82; PULSE 57; RESP 16; TEMP 36.7; O2SAT 97
[2021-03-10 08:03] VITALS: BMI 30.6
[2021-03-10] MEDS: ceFAZolin 1 GM/50 ML BAG IVPB (08:42)
[2021-03-10] MEDS: Lidocaine 2% Jelly 6 ML SYR (08:47)
--- NOTE | 2021-03-10 09:05 | PROST_PTH ---
PATIENT: Alfa Leon LOC: [facility] U#:[id number] AGE/SX: 75/M ROOM: RE03/10/[address]: Mode Nolasco MD : [id number] BED: DIS: 03/10/2021 SPEC #: [id number] RECD: 03/10/21 12:51 STATUS: BELA REQ #: [id number] IRINA: 03/10/21 09:[address]: Mode Nolasco DEPT: Surgical Specimen RECD BY: Oumou Arteaga ENTERED: 03/10/21 12:52 SP TYPE: PROST OTHR DR: Etienne Gomez DO Tissues: 1 - PROSTATE CURRETTINGS Procedures: GROSS AND MICRO LEVEL 4 Comments: [id number]
--- NOTE | 2021-03-10 09:14 | PDOC.DSDIS_ITS ---
Discharge Plan Disposition Patient Disposition: HOME Condition: Stable Discharge Details Reason For Visit: cystoscopy Attending Provider: Mode Nolasco Primary Care Provider: Etienne Gomez Home Meds and New Rx's Prescriptions: No Action tamsulosin [Flomax] 0.4 mg capsule 0.4 mg PO QHS Qty: 90 RF: 3 naproxen sodium [Aleve] 220 MG capsule 440 mg PO daily prn RF: 0 (DME) lancets [KineticTouch UltraSoft Lancets] 1 EACH misc 1 ea Miscellaneous DAILY Qty: 90 RF: 4 (DME) blood-glucose meter [KineticTouch Ultra2 Meter] 1 EACH kit 1 ea Miscellaneous DAILY Qty: 1 RF: 3 ONETOUCH ULTRA TEST STRIPS 1 EACH strip 1 ea Miscellaneous DAILY Qty: 90 RF: 3 lisinopril-hydrochlorothiazide 20-12.5 mg tablet 0.5 tab PO DAILY Qty: 90 RF: 3 fluoxetine [Prozac] 20 mg capsule 20 mg PO DAILY Qty: 90 RF: 3 allopurinol 100 mg tablet 100 mg PO DAILY Qty: 90 RF: 3 (DME) OneTouch Ultra Blue Test Strip Strip See Dose Instructions .ROUTE .MEDSUPPLY Qty: 100 RF: 4 metformin 500 mg tablet 500 mg PO BID Qty: 180 RF: 3 (DME) OneTouch Ultra Blue Test Strip Strip See Rx Instructions .ROUTE .MEDSUPPLY Qty: 100 RF: 3 levothyroxine 137 mcg tablet 137 mcg PO DAILY Qty: 90 RF: 3 atorvastatin 20 mg tablet 20 mg PO DAILY Qty: 90 RF: 3 Discharge Instructions Additional Instructions: Followup 2 weeks for pathology results OK to restart all preop meds Activity:: no lifting over 10 pounds for @ 1 week Shower/Bathe:: 24 hours Diet:: As Tolerated Discharge Orders Discharge Orders: Discharge Order (Routine); Ordered 03/10/21 Ordered By: Mode Nolasco DS: Diagnosis Discharge Diagnosis (1) Bladder cancer: Status: Acute
--- NOTE | 2021-03-10 09:17 | ROE_ITS ---
Date of service: 03/10/21 Time of Service: 09:17 Operative Note Operative Note DATE OF PROCEDURE: 03/10/21 PRE-OP DIAGNOSIS: Bladder cancer POST-OP DIAGNOSIS: same with papillary lesions in prostatic utrethra PROCEDURE: cystoscopy, TURBT SURGEON: Mode Nolasco ANESTHESIA TYPE: Local By Surgeon and General:No Airway Refer to Anesthesia Record ESTIMATED BLOOD LOSS: 100 PATHOLOGY: other (prostatic tissue) COMPLICATIONS: None Patient was transported to: same day Patient's condition: stable Implants: None Indications: This is a 75-year-old gentleman who has a history of low-grade, noninvasive urothelial cell carcinoma of the bladder. He presents for surveillance cystoscopy and possible transurethral resection. Findings: Papillary mucosal changes in the prostatic urethra Procedure Description: Patient was brought to the operating room on 03/10/2021. After successful induction of general anesthesia without intubation, he was placed in the dorsal lithotomy position. His genitalia was prepped and draped. 2% Xylocaine jelly was instilled into the urethra to act as a local anesthetic. A 22 Estonian rigid cystoscope was passed through the urethra into the bladder. The urethra and bladder were inspected with a 30 degree lens. The pendulous, bulbar and membranous urethra's appeared normal with no mucosal- based lesions. The prostatic urethra showed papillary mucosa out toward the verumontanum and toward the bladder neck. At the verumontanum, the papillary mucosa was on the patient's left side. At the bladder neck, the papillary mucosa was up more anteriorly. The bladder neck was entered and the bladder mucosa was inspected. I did not see any papillary or nodular lesions within the bladder when I inspected with both the 30 and the 70 degree lens. I then removed the cystoscope and passed a 24 Estonian resectoscope sheath through the urethra into the bladder. Transurethral resection of the prostatic mucosa was then performed. All resected tissue was evacuated and sent to pathology for permanent section. Fulguration of the resection site was then performed using the coagulation current. The bladder was then drained and the resectoscope was removed. The patient tolerated this procedure well with no complications.
[2021-03-10 09:19] VITALS: BP 119/79; PULSE 65; RESP 18; TEMP 36.1; O2SAT 94
--- NOTE | 2021-03-10 09:23 | W.ANESPOSTOP ---
Postoperative Evaluation Date, Time and Location Date Performed: 03/10/21 Time Performed: 09:23 Patient Location: Day Surgery Unit Vital Signs Most Recent Imported Vital Signs: Most Recent Vital Signs Temp Pulse Resp BP Pulse Ox 36.7 C 57 L 16 135/82 97 03/10/21 08:01 03/10/21 08:01 03/10/21 08:01 03/10/21 08:01 03/10/21 08:01 Most Recent Manually Entered Vital Signs: Adult Blood Pressure: 119/79 Heart Rate: 64 Respirations: 12 Oxygen Saturation (%): 94 Temperature (C): 36.1 C Pain Score (0-10 Scale): 0 Pain Score Most Recent Pain Score: Most Recent Pain Score Pain Level 0 03/10/21 08:01 Assessment Mental Status: Awake (Alert & Oriented to Patient Baseline) Airway and Respiratory Function: Patent airway with normal (patient baseline) respiratory exam Cardiovascular Function: Hemodynamically Stable Hydration Status: Adequately Hydrated Nausea & Vomiting: No Nausea or Vomiting Pain: Pt. Denies Any Pain Peripheral Nerve Block: Patient did not receive a nerve block
[2021-03-10 09:24] VITALS: BP 119/79; PULSE 64; RESP 12; TEMPC 36.1; O2SAT 94
[2021-03-10 09:55] VITALS: BP 135/86; PULSE 53; RESP 16; TEMP 36.4; O2SAT 95
[2021-03-10 17:20] LABS: PSA, Screening 1.4 ng/mL (0.0-6.5)
== END 2021-03-10 10:35 | disposition home or self-care (01) ==
PROVIDERS: PCP Emergency Medicine; Visit Provider Urology
PROC: 0TBB8ZZ Excision of Bladder, Via Natural or Artificial Opening Endoscopic (ICD-10-PCS; CPT 52214; principal; 2021-03-10 09:00)
DX: N42.89 Other specified disorders of prostate (principal); C67.9 Malignant neoplasm of bladder, unspecified; Z12.5 Encounter for screening for malignant neoplasm of prostate; R35.1 Nocturia; E03.9 Hypothyroidism, unspecified; E11.9 Type 2 diabetes mellitus without complications; I10 Essential (primary) hypertension; E78.00 Pure hypercholesterolemia, unspecified
CPT/HCPCS: 52214; 36415; 84153; 88305; J0690; J1885; J2405

== ENCOUNTER → 2021-03-29 11:02 | Outpatient (BNVA) | payer MEDICARE, BC, SELFPAY | PROVIDERS: PCP Emergency Medicine; Referring Provider Emergency Medicine; Visit Provider Urology | DX: C67.9 Malignant neoplasm of bladder, unspecified (principal) | CPT/HCPCS: 99213 ==

== ENCOUNTER 2021-04-26 02:00 | Outpatient (REF) | payer MEDICARE, BC, SELFPAY ==
[2021-04-26 22:00] LABS: Hemoglobin A1C 6.2 % (<5.7)
[2021-04-26 22:09] LABS: Anion Gap 10.3 mmol/L (3-11); BUN 23 mg/dL (7-18); CO2 26.7 mmol/L (21.0-32.0); CREATININE 0.9 mg/dL (0.70-1.30); Calcium 8.8 mg/dL (8.5-10.1); Calculated LDL 60 mg/dL (<100); Chloride 104 mmol/L (98-107); Cholesterol 137 mg/dL (<200); Glucose 95 mg/dL (74-106); HDL Cholesterol 49 mg/dL (40-60); Potassium 3.9 mmol/L (3.5-5.1); Sodium 141 mmol/L (136-145); Triglyceride 144 mg/dL (<150)
== END 2021-04-27 08:01 | disposition home or self-care (01) ==
LOC: LBN 02:00
PROVIDERS: PCP Emergency Medicine; Visit Provider Emergency Medicine
DX: E11.9 Type 2 diabetes mellitus without complications (principal); I10 Essential (primary) hypertension
CPT/HCPCS: 80048; 80061; 83036

== ENCOUNTER 2021-10-04 02:29 | Outpatient (CLI) | payer MEDICARE, BC, SELFPAY ==
[2021-10-04 13:48] LABS: Source Nasal/Nares
[2021-10-04 17:57] LABS: COVID-19 PCR Negative (Negative)
== END 2021-10-04 02:30 | disposition home or self-care (01) ==
LOC: LBO 02:29
PROVIDERS: PCP Emergency Medicine; Visit Provider Urology
DX: Z20.822 Contact with and (suspected) exposure to COVID-19 (principal); Z01.818 Encounter for other preprocedural examination
CPT/HCPCS: 87635; U0005

== ENCOUNTER 2021-10-06 06:19 | Day surgery (SDC) | payer MEDICARE, BC, SELFPAY ==
[2021-10-06 06:34] VITALS: BP 127/87; PULSE 58; RESP 16; TEMP 36.4; O2SAT 95
--- NOTE | 2021-10-06 06:53 | HPE_ITS ---
Assessment and Plan Assessment and plan (1) Bladder cancer: Status: Acute Assessment and plan: We will perform surveillance cystoscopy and be prepared to do a TURBT if any suspicious lesion is noted. History of Present Illness Narrative: This is a 75 year old man who has a history of low grade, noninvasive urothelial cell carcinoma of the bladder.? His initial diagnosis was in 2017.? His more recent recurrence was in 2020 (PUNL[facility]).? He presents for surveillance cystoscopy. He is not seeing any gross hematuria. His incontinence has improved since his last procedure. Review of Systems Narrative: No fevers or chills Wears glasses.? Decreased hearing acuity.? No dysphasia Hx hypothyroidism.? Hx diabetes No shortness of breath, cough or hemoptysis Bradycardia. No chest pain No nausea, vomiting, hepatitis, ulcers, jaundice No seizures, strokes or peripheral neuropathy No bleeding disorders or anemia Chronic back pain. Hyperuricemia but no gout flareup PFSH All Active Problems (Updated 10/06/21 @ 06:55 by Mode Nolasco MD) Urgency incontinence (Acute) Sensorineural hearing loss (SNHL) of both ears (Acute) Bladder cancer (Acute) Hearing loss (Acute) Acute pain of left ear (Acute) Status post inguinal hernia repair (Acute) Olecranon bursitis (Acute) History of discectomy (Acute) History of Achilles tendon repair (Acute 09/01/15) Lumbago (Acute) disc surgery 2003 Hypothyroidism (Acute) Hyperuricemia (Acute 12/06/16) gout Hypercholesterolemia (Acute) Essential hypertension (Acute) Elev transaminase/LDH (Acute 06/14/07) elevated LFT's; (4 drinks/night) elevated GGT; neg. viral hep screen; neg. ferritin; LFT's decreased off ETOH arora Diabetes mellitus (Acute) diet controlled Depressive disorder (Acute) BPH associated with nocturia (Acute 12/06/16) Cardiac arrhythmia (Acute 06/14/07) SINUS LISSA Medical History (Updated 10/06/21 @ 06:55 by Mode Nolasco MD) DM (diabetes mellitus) Hypertension Hypothyroidism Surgical History Colonoscopy - MAC (07/13/17) H/O Achilles tendon repair right PROCEDURES EXC/DEST INTVRT DISC NOS, 2004 05/10/17 DR. NOLASCO; CYSTOSCOPY, B/L RETROGRADE PYELOGRAM, BLADDER BX WITH FULGURATION Repair of inguinal hernia (~2003) TURBT 01/26/17-DR. NOLASCO Family History (Updated 10/29/20 @ 14:11 by Tran Zarate) Mother Personal history of malignant neoplasm COLON Father Hyperlipidemia Brother Personal history of malignant neoplasm SKIN Social History (Updated 10/29/20 @ 14:10 by Tran Zarate) Smoking/Tobacco Use Status: Former Tobacco Use tobacco type: cigarettes and pipe Quit Date: 07/16/79 Second Hand Exposure: Yes Smoking risk assessment performed?: Yes Alcohol Intake: current Alcohol Intake frequency: a few times a month Alcohol type: beer and wine Drug use: Occasionally Substance use type: marijuana Caregiver/Support person: No Household members: spouse Housing: house Communication Needs: Hard of Hearing Do you need help understanding health information?: Never Pets and animals: Yes Sexually active: Yes Do you think of yourself as: straight/heterosexual Current gender identity: male What is your relationship status?: How often do you talk on the phone with friends or family?: once per week How often do you get together with friends or relatives?: once per week How often do you attend congregation or congregational services?: 1-3 times per year Do you belong to any clubs or organized social groups?: no Panel score (0-1 are the most socially isolated patients): 1 What type of physical activity do you participate in: walking Duration: 15-30 minutes/day Frequency: 1-2 times per week Seatbelt use: always Drive intox or ride w/intox driver's license reviewing officer: No Do you feel safe at home: Yes Do you feel safe in your relationship?: Yes Meds Allergies and Home Medications Allergies Allergy/AdvReac Type Severity Reaction Status Date / Time amlodipine AdvReac Intermediate headache Verified 10/06/21 06:25 Home Medications Medication Instructions Recorded Confirmed Type naproxen sodium 220 mg capsule 440 mg PO daily prn 03/02/16 10/04/21 History ([place]) Onetouch Ultra Test Strips 1 ea MISCELLANEOUS DAILY #90 strip 11/14/17 10/04/21 Clinic blood-glucose meter (OneTouch #1 kit 11/14/17 10/04/21 Rx Ultra2 Meter) lancets ([employer]armaTouch UltraSoft #90 ea 11/14/17 10/04/21 Rx Lancets) allopurinol 100 mg tablet 100 mg PO DAILY #90 tab-cap 08/02/21 10/06/21 Rx atorvastatin 20 mg tablet 20 mg PO DAILY #90 tab 08/02/21 10/06/21 Rx fluoxetine 20 mg capsule (Prozac) 20 mg PO DAILY #90 cap 08/02/21 10/06/21 Rx levothyroxine 137 mcg tablet 137 mcg PO DAILY #90 tab-cap 08/02/21 10/06/21 Rx lisinopril 20 1 tab PO DAILY #90 tab-cap 08/02/21 10/06/21 Rx mg-hydrochlorothiazide 12.5 mg tablet metformin 500 mg tablet 500 mg PO BID #180 tab 08/02/21 10/06/21 Rx blood sugar diagnostic #100 ea 09/12/21 10/04/21 Rx Exam Const General: cooperative and comfortable Neck Neck: supple Resp Effort & Inspection: normal respiratory effort Auscultation: clear to auscultation bilaterally Cardio Rate: regular rate Rhythm: regular rhythm GI Palpation: soft and no masses Neuro General: patient alert, patient awake and patient oriented x3 Results Last Vital Signs Temp 36.4 C L 10/06/21 06:34 Pulse 58 L 10/06/21 06:34 Resp 16 10/06/21 06:34 BP 127/87 10/06/21 06:34 Pulse Ox 95 10/06/21 06:34
[2021-10-06] MEDS: Lactated Ringers 1,000 ML 80 ML IV (06:55)
--- NOTE | 2021-10-06 07:03 | W.ANESPRE ---
General Info Date of Service Date Performed: 10/06/21 Height: 5 ft 11 in Weight: 101 kg Body Mass Index (BMI): 31.0 Surgical Procedure: Operation Date: 10/06/21 07:40 Proposed Procedure Side Surgeon p Transurethral Resection Bladder Tumor w/Cysto Mode Nolasco MD Meds Allergies and Home Medications Allergies Allergy/AdvReac Type Severity Reaction Status Date / Time amlodipine AdvReac Intermediate headache Verified 10/06/21 06:25 Home Medication Medication Instructions Recorded naproxen sodium 220 mg capsule 440 mg PO daily prn 03/02/16 (Aleve) blood-glucose meter (Rut[employer]Touch #1 kit 11/14/17 Ultra2 Meter) lancets (Rut[employer]etTouch UltraSoft #90 ea 11/14/17 Lancets) allopurinol 100 mg tablet 100 mg PO DAILY #90 tab-cap 08/02/21 atorvastatin 20 mg tablet 20 mg PO DAILY #90 tab 08/02/21 fluoxetine 20 mg capsule (Prozac) 20 mg PO DAILY #90 cap 08/02/21 levothyroxine 137 mcg tablet 137 mcg PO DAILY #90 tab-cap 08/02/21 lisinopril 20 1 tab PO DAILY #90 tab-cap 08/02/21 mg-hydrochlorothiazide 12.5 mg tablet metformin 500 mg tablet 500 mg PO BID #180 tab 08/02/21 blood sugar diagnostic #100 ea 09/12/21 Current Visit Medications: Current Medications Generic Name Dose Route Start Last Admin Trade Name Freq PRN Reason Stop Dose Admin Ringer's Solution 1,000 mls @ 80 mls/hr 10/06/21 06:00 10/06/21 06:55 IV 11/04/21 23:59 80 mls/hr INFUSION DIDI Administration Cefazolin Sodium/Dextrose 1 gm in 50 mls @ 100 mls/hr 10/06/21 06:00 Ancef Duplex IVPB 10/06/21 16:00 PREOP DIDI IV Miscellaneous Supplies 1 each 10/06/21 06:00 Iv Access IV 11/04/21 23:59 DIRECTED DIDI Sodium Chloride 0 ml 10/06/21 06:00 Normal Saline Flush 10 Ml Syr IV 11/04/21 23:59 PRN PRN Sodium Chloride 0 ml 10/06/21 06:00 Normal Saline 10 Ml Vial IJ 11/04/21 23:59 DIRECTED PRN Sterile Water 0 ml 10/06/21 06:00 Water,Injection,Sterile 10 Ml Vial IJ 11/04/21 23:59 DIRECTED PRN PFSH Active Problems Active Problems: Problem Status Onset Code Urgency incontinence N39.41 Sensorineural hearing loss (SNHL) of both ears H90.3 Bladder cancer C67.9 Hearing loss H91.90 Acute pain of left ear H92.02 Status post inguinal hernia repair Z98.890, Z87.19 Olecranon bursitis M70.20 History of discectomy Z98.890 History of Achilles tendon repair 09/01/15 Z98.890 Lumbago M54.5 Hypothyroidism E03.9 Hyperuricemia 12/06/16 E79.0 Hypercholesterolemia E78.00 Essential hypertension I10 Elev transaminase/LDH 06/14/07 R74.0 Diabetes mellitus E11.9 Depressive disorder F32.9 BPH associated with nocturia 12/06/16 N40.1, R35.1 Cardiac arrhythmia 06/14/07 I49.9 Medical History Medical History (Updated 10/06/21 @ 06:55 by Mode Nolasco MD) DM (diabetes mellitus) Hypertension Hypothyroidism Medical History Comments:: black coffee at 0600; marijuana last few months ago Surgical History Surgical History Colonoscopy - MAC (07/13/17) H/O Achilles tendon repair right PROCEDURES EXC/DEST INTVRT DISC NOS, 2004 05/10/17 DR. NOLASCO; CYSTOSCOPY, B/L RETROGRADE PYELOGRAM, BLADDER BX WITH FULGURATION Repair of inguinal hernia (~2003) TURBT 01/26/17-DR. NOLASCO Tobacco Smoking/Tobacco Use Status: Former Tobacco Use Passive smoking exposure: Yes Second hand exposure: Yes Alcohol Alcohol Intake: current Alcohol intake frequency: a few times a month Alcohol type: beer and wine Substance Use Substance use: Occasionally Substance use type: marijuana Vital Signs and Lab Results Vital Signs Most Recent Vital Signs in EMR: Most Recent Vital Signs Temp Pulse Resp BP Pulse Ox 36.4 C L 58 L 16 127/87 95 10/06/21 06:34 10/06/21 06:34 10/06/21 06:34 10/06/21 06:34 10/06/21 06:34 Point of Care Results Point of Care Results: Finger Stick Blood Glucose 117 10/06/21 06:45 Lab Results Blood Type / Crossmatch: No Data to Display Complete Blood Count: No Data to Display Complete Metabolic Panel: No Data to Display Liver Function Panel: No Data to Display Coagulation Panel: No Data to Display Cardiac Panel: No Data to Display Arterial Blood Gas: No Data to Display Venous Blood Gas: No Data to Display Pancreas Panel: No Data to Display Thyroid Panel: No Data to Display Infectious Disease: Coronavirus (COVID-19)(PCR) Negative (Negative) 10/04/21 10:57 10/04/21 Coronavirus 2019 Source Nasal/Nares 10/04/21 10:57 10/04/21 Blood Cultures: No Data to Display Toxicology Panel: No Data to Display Anesthesia Assessment and Plan Anesthesia History Personal History: No History of Anesthesia Complications Family History: No Family History of Anesthesia Complications Exercise Tolerance Exercise Tolerance: Metabolic Equivalents>4 Pertinent Negatives Pertinent Negatives: No Symptoms of GERD Cardiac & Pulmonary Exam Cardiac Exam: Normal S1/S2 Heart Sounds Pulmonary Exam: Clear Bilateral Breath Sounds Implantable Cardiac Device Does patient have a Pacemaker or an ICD?: No Airway Exam Known Difficult Airway: No Mallampati Class: 2 Mouth Opening: Normal (> 3cm) Thyromental Distance: Greater than 3 cm Neck Range of Motion: Full ROM Neck Circumference: Normal Teeth Condition: Normal Dentition ASA Classification ASA Score: ASA 3 Emergency Case?: No NPO Status NPO Status: NPO Clears >2 hours, Solids >8 hours Anesthesia Plan Resuscitation Status: Full Code Anesthesia Technique: General Anesthesia Airway Planned: Natural Airway Monitors Used: Standard Monitors
[2021-10-06 07:20] VITALS: BMI 31.0
[2021-10-06] MEDS: ceFAZolin 1 GM/50 ML BAG IVPB (07:34)
[2021-10-06] MEDS: Lidocaine 2% Jelly 6 ML SYR (07:50)
--- NOTE | 2021-10-06 07:58 | W.PM.DSUDISC ---
Discharge Plan Disposition Patient Disposition: HOME Condition: Stable Discharge Details Reason For Visit: cystoscopy Attending Provider: Mode Nolasco Primary Care Provider: Etienne Gomez Home Meds and New Rx's Prescriptions: No Action naproxen sodium [Aleve] 220 MG capsule 440 mg PO daily prn 0RF (DME) lancets [OneTouch UltraSoft Lancets] 1 EACH misc 1 ea Miscellaneous DAILY Qty: 90 4RF (DME) blood-glucose meter [OneTouch Ultra2 Meter] 1 EACH kit 1 ea Miscellaneous DAILY Qty: 1 3RF ONETOUCH ULTRA TEST STRIPS 1 EACH strip 1 ea Miscellaneous DAILY Qty: 90 3RF allopurinol 100 mg tablet 100 mg PO DAILY Qty: 90 3RF Rx Instructions: one daily beginning 01/27. atorvastatin 20 mg tablet 20 mg PO DAILY Qty: 90 3RF fluoxetine [Prozac] 20 mg capsule 20 mg PO DAILY Qty: 90 3RF levothyroxine 137 mcg tablet 137 mcg PO DAILY Qty: 90 3RF lisinopril-hydrochlorothiazide 20-12.5 mg tablet 1 tab PO DAILY Qty: 90 3RF metformin 500 mg tablet 500 mg PO BID Qty: 180 3RF (DME) OneTouch Ultra Blue Test Strip Strip See Rx Instructions .ROUTE .MEDSUPPLY Qty: 100 3RF Rx Instructions: test daily in a.m. Discharge Instructions Additional Instructions: Followup cystoscopy 6 months Activity:: Activity as Tolerated Shower/Bathe:: 24 hours Diet:: As Tolerated Discharge Orders Discharge Orders: Discharge Order (Routine); Ordered 10/06/21 Ordered By: Mode Nolasco DS: Diagnosis Discharge Diagnosis (1) Bladder cancer: Status: Acute
[2021-10-06 08:03] VITALS: BP 120/76; PULSE 52; RESP 20; TEMP 36.3; O2SAT 100
--- NOTE | 2021-10-06 08:12 | W.ANESPOSTOP ---
Postoperative Evaluation Date, Time and Location Date Performed: 10/06/21 Time Performed: 08:12 Patient Location: Day Surgery Unit Vital Signs Most Recent Imported Vital Signs: Most Recent Vital Signs Temp Pulse Resp BP Pulse Ox 36.3 C L 52 L 20 120/76 100 10/06/21 08:03 10/06/21 08:03 10/06/21 08:03 10/06/21 08:03 10/06/21 08:03 Pain Score Most Recent Pain Score: Most Recent Pain Score Pain Level 0 10/06/21 08:03 Assessment Mental Status: Awake (Alert & Oriented to Patient Baseline) Airway and Respiratory Function: Patent airway with normal (patient baseline) respiratory exam Cardiovascular Function: Hemodynamically Stable Hydration Status: Adequately Hydrated Nausea & Vomiting: No Nausea or Vomiting Pain: Pt. Denies Any Pain Peripheral Nerve Block: Patient did not receive a nerve block
--- NOTE | 2021-10-06 08:23 | W.PM.OP ---
Date of service: 10/06/21 Time of Service: 08:23 Operative Note Operative Note DATE OF PROCEDURE: 10/06/21 PRE-OP DIAGNOSIS: Bladder cancer POST-OP DIAGNOSIS: same No recurrance PROCEDURE: cystoscopy SURGEON: Mode Nolasco ANESTHESIA TYPE: General:No Airway Refer to Anesthesia Record ESTIMATED BLOOD LOSS: 0 PATHOLOGY: none sent COMPLICATIONS: None Patient was transported to: same day Patient's condition: stable Implants: none Indications: This is a 75-year-old gentleman who has a history of low-grade, noninvasive urothelial cell carcinoma of the bladder. He presents for surveillance cystoscopy with possible transurethral resection of any visible bladder tumor. Findings: No recurrent tumor Procedure Description: The patient was given preoperative IV antibiotics. He was brought to the operating room on 10/06/2021. After successful induction of general anesthesia without intubation, he was placed in the dorsal lithotomy position. His genitalia was prepped and draped. 2% Xylocaine jelly was instilled into the urethra to act as a local anesthetic. A 22 [place] Citizen rigid cystoscope was passed through the urethra into the bladder. The urethra and bladder were inspected using a 30 degree lens. The pendulous, bulbar and membranous urethra's appeared normal with no strictures. The prostatic urethra showed lateral lobe enlargement but no papillary or nodular lesions. The bladder neck was entered and the bladder mucosa was inspected. Both ureteral orifices appeared normal. No blood was seen coming from either side. The remainder the bladder was mildly trabeculated but there were no papillary or nodular abnormality seen. These findings were confirmed with inspection of the bladder using a 70 degree lens. With no recurrence seen, the bladder was emptied and the cystoscope was withdrawn. He tolerated the procedure with no complications.
[2021-10-06 08:26] VITALS: BP 124/80; PULSE 51; RESP 18; TEMP 36.2; O2SAT 97
[2021-10-06] MEDS: Phenazopyridine 200 MG TAB PO (08:32)
== END 2021-10-06 09:40 | disposition home or self-care (01) ==
PROVIDERS: PCP Emergency Medicine; Visit Provider Urology
PROC: 0TBB8ZZ Excision of Bladder, Via Natural or Artificial Opening Endoscopic (ICD-10-PCS; CPT 52000; principal; 2021-10-06 07:30)
DX: C67.9 Malignant neoplasm of bladder, unspecified (principal); E03.9 Hypothyroidism, unspecified; E78.00 Pure hypercholesterolemia, unspecified; I10 Essential (primary) hypertension; E11.9 Type 2 diabetes mellitus without complications; F32.9 Major depressive disorder, single episode, unspecified; N40.1 Benign prostatic hyperplasia with lower urinary tract symptoms; R35.1 Nocturia
CPT/HCPCS: 52000; J0690; J1885; J2001; J2405

== ENCOUNTER 2021-11-08 05:21 | Outpatient (CLI) | payer MEDICARE, BC, SELFPAY ==
[2021-11-08 12:57] LABS: Hemoglobin A1C 6.3 % (<5.7)
[2021-11-08 13:00] LABS: Anion Gap 7.9 mmol/L (3-11); BUN 20 mg/dL (7-18); CO2 26.1 mmol/L (21.0-32.0); CREATININE 0.9 mg/dL (0.70-1.30); Calcium 8.8 mg/dL (8.5-10.1); Calculated LDL 71 mg/dL (<100); Chloride 105 mmol/L (98-107); Cholesterol 150 mg/dL (<200); Glucose 110 mg/dL (74-106); HDL Cholesterol 51 mg/dL (40-60); Potassium 4.2 mmol/L (3.5-5.1); Sodium 139 mmol/L (136-145); TSH 1.15 uIU/mL (0.36-3.74); Triglyceride 142 mg/dL (<150)
== END 2021-11-08 05:22 | disposition home or self-care (01) ==
PROVIDERS: PCP Family Medicine; Visit Provider Emergency Medicine
DX: I10 Essential (primary) hypertension (principal); E11.9 Type 2 diabetes mellitus without complications; E03.9 Hypothyroidism, unspecified
CPT/HCPCS: 36415; 80048; 80061; 83036; 84443

== ENCOUNTER 2022-06-15 10:22 | Day surgery (SDC) | payer MEDICARE, BC, SELFPAY ==
[2022-06-15 10:38] VITALS: BP 133/89; PULSE 63; RESP 16; TEMP 36.6; O2SAT 95
[2022-06-15] MEDS: Lactated Ringers 1,000 ML 80 ML IV (11:01)
--- NOTE | 2022-06-15 11:54 | W.ANESPRE ---
General Info Date of Service Date Performed: 06/15/22 Height: 6 ft Weight: 99.1 kg Body Mass Index (BMI): 29.6 Surgical Procedure: Operation Date: 06/15/22 12:10 Proposed Procedure Side Surgeon p Cystoscopy Possible Transurethral Resection Bladder Tumor Mode Nolasco MD Meds Allergies and Home Medications Allergies Allergy/AdvReac Type Severity Reaction Status Date / Time amlodipine AdvReac Intermediate headache Verified 06/15/22 10:37 Home Medication Medication Instructions Recorded naproxen sodium 220 mg capsule 440 mg PO daily prn 03/02/16 (Aleve) blood-glucose meter ([facility] ##1 11/14/17 Ultra2 Meter kit) lancets ([facility] UltraSoft #90 ea 11/14/17 Lancets) blood sugar diagnostic #100 ea 09/12/21 allopurinol 100 mg tablet 100 mg PO DAILY #90 tab-caps 03/31/22 atorvastatin 20 mg tablet 20 mg PO DAILY #90 tabs 03/31/22 fluoxetine 20 mg capsule (Prozac) 20 mg PO DAILY #90 caps 03/31/22 levothyroxine 137 mcg tablet 137 mcg PO DAILY #90 tab-caps 03/31/22 lisinopril 20 1 tab PO DAILY #90 tab-caps 03/31/22 mg-hydrochlorothiazide 12.5 mg tablet metformin 500 mg tablet 500 mg PO BID #180 tabs 03/31/22 adjuvant AS01B (PF)vial 1 of 2 0.5 ml IM DAILY #0.5 mL 05/04/22 (Shingrix Adjuvant Component (PF) intramuscular suspension) Current Visit Medications: Current Medications Generic Name Dose Route Start Last Admin Trade Name Alvinq PRN Reason Stop Dose Admin Ringer's Solution 1,000 mls @ 80 mls/hr 06/15/22 06:00 06/15/22 11:01 IV 07/14/22 23:59 80 mls/hr INFUSION DIDI Administration Cefazolin Sodium/Dextrose 2 gm in 50 mls @ 100 mls/hr 06/15/22 06:00 Ancef Duplex IVPB 06/15/22 16:00 PREOP DIDI IV Miscellaneous Supplies 1 each 06/15/22 06:00 Iv Access IV 07/14/22 23:59 DIRECTED DIDI Sodium Chloride 0 ml 06/15/22 06:00 Normal Saline Flush 10 Ml Syr IV 07/14/22 23:59 PRN PRN Sodium Chloride 0 ml 06/15/22 06:00 Normal Saline 10 Ml Vial IJ 07/14/22 23:59 DIRECTED PRN Sterile Water 0 ml 06/15/22 06:00 Water,Injection,Sterile 10 Ml Vial IJ 07/14/22 23:59 DIRECTED PRN PFSH Active Problems Active Problems: Problem Status Onset Code COVID-19 U07.1 Urgency incontinence N39.41 Sensorineural hearing loss (SNHL) of both ears H90.3 Bladder cancer C67.9 Hearing loss H91.90 Acute pain of left ear H92.02 Status post inguinal hernia repair Z98.890, Z87.19 Olecranon bursitis M70.20 History of discectomy Z98.890 History of Achilles tendon repair 09/01/15 Z98.890 Lumbago M54.5 Hypothyroidism E03.9 Hyperuricemia 12/06/16 E79.0 Hypercholesterolemia E78.00 Essential hypertension I10 Elev transaminase/LDH 06/14/07 R74.0 Diabetes mellitus E11.9 Depressive disorder F32.9 BPH associated with nocturia 12/06/16 N40.1, R35.1 Cardiac arrhythmia 06/14/07 I49.9 Medical History Medical History DM (diabetes mellitus) Hypertension Hypothyroidism Medical History Comments:: black coffee at 0600; marijuana last few months ago Surgical History Surgical History Colonoscopy - MAC (07/13/17) H/O Achilles tendon repair right PROCEDURES EXC/DEST INTVRT DISC NOS, 200305/10/17 DR. NOLASCO; CYSTOSCOPY, B/L RETROGRADE PYELOGRAM, BLADDER BX WITH FULGURATION Repair of inguinal hernia (~2003) TURBT 01/26/17-DR. NOLASCO Tobacco Smoking/Tobacco Use Status: Former Tobacco Use Passive smoking exposure: Yes Second hand exposure: Yes Alcohol Alcohol Intake: current Alcohol intake frequency: a few times a month Alcohol type: beer and wine Substance Use Substance use: Occasionally Substance use type: marijuana Vital Signs and Lab Results Vital Signs Most Recent Vital Signs in EMR: Most Recent Vital Signs Temp Pulse Resp BP Pulse Ox 36.6 C 63 16 133/89 95 06/15/22 10:38 06/15/22 10:38 06/15/22 10:38 06/15/22 10:38 06/15/22 10:38 Lab Results Blood Type / Crossmatch: No Data to Display Complete Blood Count: No Data to Display Complete Metabolic Panel: No Data to Display Liver Function Panel: No Data to Display Coagulation Panel: No Data to Display Cardiac Panel: No Data to Display Arterial Blood Gas: No Data to Display Venous Blood Gas: No Data to Display Pancreas Panel: No Data to Display Thyroid Panel: No Data to Display Infectious Disease: No Data to Display Blood Cultures: No Data to Display Toxicology Panel: No Data to Display Anesthesia Assessment and Plan Anesthesia History Personal History: No History of Anesthesia Complications Family History: No Family History of Anesthesia Complications Exercise Tolerance Exercise Tolerance: Metabolic Equivalents>4 Pertinent Negatives Pertinent Negatives: No Symptoms of GERD Cardiac & Pulmonary Exam Cardiac Exam: Normal S1/S2 Heart Sounds Pulmonary Exam: Clear Bilateral Breath Sounds Implantable Cardiac Device Does patient have a Pacemaker or an ICD?: No Airway Exam Known Difficult Airway: No Mallampati Class: 2 Mouth Opening: Normal (> 3cm) Thyromental Distance: Greater than 3 cm Neck Range of Motion: Full ROM Neck Circumference: Normal Teeth Condition: Normal Dentition ASA Classification ASA Score: ASA 3 Emergency Case?: No NPO Status NPO Status: NPO Clears >2 hours, Solids >8 hours Anesthesia Plan Resuscitation Status: Full Code Anesthesia Technique: General Anesthesia Airway Planned: Natural Airway Monitors Used: Standard Monitors
[2022-06-15 11:58] VITALS: BMI 29.6
--- NOTE | 2022-06-15 13:49 | HPE_ITS ---
Date of service: 06/15/22 Time of Service: 13:49 Assessment and Plan Assessment and plan (1) Bladder cancer: Status: Acute Assessment and plan: For cystoscopy and possible TURBT History of Present Illness History of Present Illness Chief Complaint: bladder cancer Narrative: This is a 76 year old man who has a history of low grade, noninvasive urothelial cell carcinoma of the bladder.? His initial diagnosis was in 2016.? His more recent recurrence was in 2020 (PUNP).? He presents for surveillance cystoscopy. He is not seeing any gross hematuria.? ? Review of Systems Narrative: No fevers or chills Decreased hearing acuity. No vision change or dysphasia Hx Diabetes. No thyroid dysfunction No shortness of breath, cough or hemoptysis No chest pain or palpitations No nausea, vomiting, hepatitis, ulcers, jaundice, diarrhea or constipation No seizures, strokes or peripheral neuropathy No bleeding disorders or anemia No gout PFSH All Active Problems COVID-19 (Acute) Urgency incontinence (Acute) Sensorineural hearing loss (SNHL) of both ears (Acute) Bladder cancer (Acute) Hearing loss (Acute) Acute pain of left ear (Acute) Status post inguinal hernia repair (Acute) Olecranon bursitis (Acute) History of discectomy (Acute) History of Achilles tendon repair (Acute 09/01/15) Lumbago (Acute) disc surgery 2003 Hypothyroidism (Acute) Hyperuricemia (Acute 12/06/16) gout Hypercholesterolemia (Acute) Essential hypertension (Acute) Elev transaminase/LDH (Acute 06/14/07) elevated LFT's; (4 drinks/night) elevated GGT; neg. viral hep screen; neg. ferritin; LFT's decreased off ETOH arora Diabetes mellitus (Acute) diet controlled Depressive disorder (Acute) BPH associated with nocturia (Acute 12/06/16) Cardiac arrhythmia (Acute 06/14/07) SINUS LISSA Medical History DM (diabetes mellitus) Hypertension Hypothyroidism Surgical History Colonoscopy - MAC (07/13/17) H/O Achilles tendon repair right PROCEDURES EXC/DEST INTVRT DISC NOS, 2004 05/10/17 DR. PIZARRO; CYSTOSCOPY, B/L RETROGRADE PYELOGRAM, BLADDER BX WITH FULGURATION Repair of inguinal hernia (~2003) TURBT 01/26/17-DR. PIZARRO Family History (Updated 10/29/20 @ 14:11 by Tran Zarate) Mother Personal history of malignant neoplasm COLON Father Hyperlipidemia Brother Personal history of malignant neoplasm SKIN Social History (Updated 10/29/20 @ 14:10 by Tran Zarate) Smoking/Tobacco Use Status: Former Tobacco Use tobacco type: cigarettes and pipe Quit Date: 07/16/79 Second Hand Exposure: Yes Smoking risk assessment performed?: Yes Alcohol Intake: current Alcohol Intake frequency: a few times a month Alcohol type: beer and wine Drug use: Occasionally Substance use type: marijuana Caregiver/Support person: No Household members: spouse Housing: house Communication Needs: Hard of Hearing Do you need help understanding health information?: Never Pets and animals: Yes Sexually active: Yes Do you think of yourself as: straight/heterosexual Current gender identity: male What is your relationship status?: How often do you talk on the phone with friends or family?: once per week How often do you get together with friends or relatives?: once per week How often do you attend hoahaoism or spiritism services?: 1-3 times per year Do you belong to any clubs or organized social groups?: no Panel score (0-1 are the most socially isolated patients): 1 What type of physical activity do you participate in: walking Duration: 15-30 minutes/day Frequency: 1-2 times per week Seatbelt use: always Drive intox or ride w/intox 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 Do you feel safe at home: Yes Do you feel safe in your relationship?: Yes Meds Allergies and Home Medications Allergies Allergy/AdvReac Type Severity Reaction Status Date / Time amlodipine AdvReac Intermediate headache Verified 06/15/22 10:37 Home Medications Medication Instructions Recorded Confirmed Type naproxen sodium 220 mg capsule 440 mg PO daily prn 03/02/16 06/15/22 History (Gray) i2i Log[employer]ouch Ultra Test Strips 1 ea miscellaneous DAILY #90 strips 11/14/17 10/04/21 Clinic blood-glucose meter (i2i LogicTouch ##1 11/14/17 05/04/22 Rx Ultra2 Meter kit) lancets ([employer]2i [employer]Touch UltraSoft #90 ea 11/14/17 05/04/22 Rx Lancets) blood sugar diagnostic #100 ea 09/12/21 05/04/22 Rx allopurinol 100 mg tablet 100 mg PO DAILY #90 tab-caps 03/31/22 06/15/22 Rx atorvastatin 20 mg tablet 20 mg PO DAILY #90 tabs 03/31/22 06/15/22 Rx fluoxetine 20 mg capsule (Prozac) 20 mg PO DAILY #90 caps 03/31/22 06/15/22 Rx levothyroxine 137 mcg tablet 137 mcg PO DAILY #90 tab-caps 03/31/22 06/15/22 Rx lisinopril 20 1 tab PO DAILY #90 tab-caps 03/31/22 06/15/22 Rx mg-hydrochlorothiazide 12.5 mg tablet metformin 500 mg tablet 500 mg PO BID #180 tabs 03/31/22 06/15/22 Rx adjuvant AS01B (PF)vial 1 of 2 0.5 ml IM DAILY #0.5 mL 05/04/22 06/15/22 Rx (Shingrix Adjuvant Component (PF) intramuscular suspension) Exam Const General: cooperative Neck Neck: supple Resp Effort & Inspection: normal respiratory effort Auscultation: clear to auscultation bilaterally Cardio Rate: regular rate Rhythm: regular rhythm GI Palpation: soft and no masses Neuro General: patient alert, patient awake and patient oriented x3 Results Last Vital Signs Temp 36.6 C 06/15/22 10:38 Pulse 63 06/15/22 10:38 Resp 16 06/15/22 10:38 BP 133/89 06/15/22 10:38 Pulse Ox 95 06/15/22 10:38
[2022-06-15] MEDS: ceFAZolin 2 GM/50 ML BAG IVPB (14:14)
[2022-06-15] MEDS: Lidocaine 2% Jelly 6 ML SYR (14:28)
--- NOTE | 2022-06-15 14:36 | URETHRABX_PTH ---
PATIENT: Alfa Leon LOC: [facility] U#:[id number] AGE/SX: 76/M ROOM: RE06/15/[address]: Mode Nolasco MD : 1945 BED: DIS: 06/15/2022 SPEC #: [id number] RECD: 06/15/22 17:56 STATUS: BELA RE #: [id number] IRINA: 06/15/22 14:[address]: Mode Nolasco DEPT: Surgical Specimen RECD BY: Oumou Arteaga ENTERED: 06/15/22 17:57 SP TYPE: URETHRABX OTHR DR: Aakash Villarreal MD Tissues: 1 - URETHRA BIOPSY Procedures: GROSS AND MICRO LEVEL 4 Comments: [id number]
--- NOTE | 2022-06-15 14:42 | W.PM.DSUDISC ---
Date of service: 06/15/22 Time of Service: 14:42 Discharge Plan Disposition Patient Disposition: HOME Condition: Good Discharge Details Reason For Visit: cystoscopy Attending Provider: Mode Nolasco Primary Care Provider: Aakash Villarreal Home Meds and New Rx's Prescriptions: No Action Shingrix Adjuvant Component-PF Suspension 0.5 ml IM DAILY Qty: 0.5 1RF Rx Instructions: given 2nd dose 2-6 months after first naproxen sodium [Aleve] 220 MG capsule 440 mg PO daily prn (DME) lancets [OneTouch UltraSoft Lancets] 1 EACH misc 1 ea Miscellaneous DAILY Qty: 90 4RF (DME) blood-glucose meter [Digital Payment TechnologiesTouch Ultra2 Meter] 1 EACH kit 1 ea Miscellaneous DAILY Qty: 1 3RF ONETOUCH ULTRA TEST STRIPS 1 EACH strip 1 ea Miscellaneous DAILY Qty: 90 3RF (DME) OneTouch Ultra Blue Test Strip Strip See Rx Instructions .ROUTE .MEDSUPPLY Qty: 100 3RF Rx Instructions: test daily in a.m. allopurinol 100 mg tablet 100 mg PO DAILY Qty: 90 0RF Rx Instructions: one daily beginning 01/27. atorvastatin 20 mg tablet 20 mg PO DAILY Qty: 90 0RF fluoxetine [Prozac] 20 mg capsule 20 mg PO DAILY Qty: 90 0RF levothyroxine 137 mcg tablet 137 mcg PO DAILY Qty: 90 0RF lisinopril-hydrochlorothiazide 20-12.5 mg tablet 1 tab PO DAILY Qty: 90 0RF metformin 500 mg tablet 500 mg PO BID Qty: 180 0RF Discharge Instructions Additional Instructions: followup 1 to 2 weeks for pathology results (can be in person or by phone) Activity:: Activity as Tolerated Shower/Bathe:: 24 hours Equipment/Supplies:: No Equipment Needed Diet:: As Tolerated DS: Diagnosis Discharge Diagnosis (1) Bladder cancer: Status: Acute
--- NOTE | 2022-06-15 14:46 | W.PM.OP ---
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 His initial diagnosis was in 2019. His last occurrence was a prostatic urethral lesion with pathology consistent with papillary urothelial lesion of low malignant potential. He comes in for surveillance cystoscopy Findings: Papillary lesion within prostatic urethra Procedure Description: The patient was given preoperative antibiotics. He was brought to the operating room on 06/15/2022. He was placed in the dorsal lithotomy position. His genitalia was prepped and draped. 2% Xylocaine jelly was instilled into the urethra to act as a local anesthetic. A 24 Turkmen resectoscope sheath was passed through the urethra into the bladder. We used a visual obturator to inspect the urethral and bladder mucosa's. The pendulous, bulbar and membranous urethra was all appeared normal with no strictures and no papillary lesions. In the prostatic urethra, just proximal to the verumontanum, there was some papillary tissue anteriorly. No active bleeding was seen from the site. No additional papillary lesions were seen. The bladder neck was then entered and the bladder mucosa was inspected. Both ureteral orifices appeared normal with no blood coming from either side. No papillary or nodular lesions were seen within the bladder. We then withdrew the scope back into the prostatic urethra and took a transurethral resection biopsy of the papillary lesion. The biopsied tissue was sent to pathology for permanent section. The resection site was cauterized using the bipolar coagulation current. The patient tolerated the procedure well with no complications.
[2022-06-15 14:48] VITALS: BP 123/86; PULSE 54; RESP 18; TEMP 36.1; O2SAT 95
--- NOTE | 2022-06-15 14:54 | W.ANESPOSTOP ---
Postoperative Evaluation Date, Time and Location Date Performed: 06/15/22 Time Performed: 14:54 Patient Location: Day Surgery Unit Vital Signs Most Recent Imported Vital Signs: Most Recent Vital Signs Temp Pulse Resp BP Pulse Ox 36.1 C L 54 L 18 123/86 95 06/15/22 14:48 06/15/22 14:48 06/15/22 14:48 06/15/22 14:48 06/15/22 14:48 Pain Score Most Recent Pain Score: Most Recent Pain Score Pain Level 0 06/15/22 14:48 Assessment Mental Status: Awake (Alert & Oriented to Patient Baseline) Airway and Respiratory Function: Patent airway with normal (patient baseline) respiratory exam Cardiovascular Function: Hemodynamically Stable Hydration Status: Adequately Hydrated Nausea & Vomiting: No Nausea or Vomiting Pain: Pt. Denies Any Pain Peripheral Nerve Block: Patient did not receive a nerve block
[2022-06-15] MEDS: Phenazopyridine 200 MG TAB PO (15:00)
[2022-06-15 15:12] VITALS: PULSE 60; RESP 18; TEMP 36.5; O2SAT 96
== END 2022-06-15 15:44 | disposition home or self-care (01) ==
PROVIDERS: PCP Family Medicine; Visit Provider Urology
PROC: 0TBB8ZZ Excision of Bladder, Via Natural or Artificial Opening Endoscopic (ICD-10-PCS; CPT 52224; principal; 2022-06-15 12:00)
DX: C67.9 Malignant neoplasm of bladder, unspecified (principal); E11.9 Type 2 diabetes mellitus without complications; I10 Essential (primary) hypertension; E03.9 Hypothyroidism, unspecified
CPT/HCPCS: 52224; 88305; J0690; J1100; J1885; J2405; J2704

== ENCOUNTER → 2022-06-29 14:26 | Outpatient (BNVA) | payer MEDICARE, BC, SELFPAY | PROVIDERS: PCP Family Medicine; Referring Provider Family Medicine; Visit Provider Nurse Practitioner Gerontology | DX: C67.9 Malignant neoplasm of bladder, unspecified (principal) | CPT/HCPCS: 99214 ==

== ENCOUNTER 2022-11-02 08:17 | Day surgery (SDC) | payer MEDICARE, BC, SELFPAY ==
[2022-11-02 08:36] VITALS: BP 133/88; PULSE 60; RESP 18; TEMP 36.5; O2SAT 96
--- NOTE | 2022-11-02 08:42 | W.PM.HP.N ---
Date of service: 11/02/22 Time of Service: 08:49 Assessment and Plan Assessment and plan (1) Bladder cancer: Assessment and plan: For surveillance cystoscopy and possible TUR Bladder Tumor History of Present Illness History of Present Illness Chief Complaint: Urothelial carcinoma of bladder Narrative: This is a 77-year-old gentleman who has a history of low-grade, noninvasive urothelial cell carcinoma of the bladder. His initial diagnosis was made in 2019. More recently, he had recurrence in the prostatic urethra. He presents now for cystoscopy with possible transurethral resection of any recurrent tumor. He has no gross hematuria. He does have some incontinence but he tells me it is manageable using pads at this point. Review of Systems Narrative: No fevers or chills Decreased hearing acuity. No vision change or dysphasia Hx Diabetes. No thyroid dysfunction No shortness of breath, cough or hemoptysis No chest pain or palpitations No nausea, vomiting, hepatitis, ulcers, jaundice, diarrhea or constipation No seizures, strokes or peripheral neuropathy No bleeding disorders or anemia Chronic back pain. PFSH All Active Problems COVID-19 (Acute) Urgency incontinence (Acute) Sensorineural hearing loss (SNHL) of both ears (Acute) Hearing loss (Acute) Acute pain of left ear (Acute) Status post inguinal hernia repair (Acute) Olecranon bursitis (Acute) History of discectomy (Acute) History of Achilles tendon repair (Acute 09/01/15) Lumbago (Acute) disc surgery 2004 Hypothyroidism (Acute) Hyperuricemia (Acute 12/06/16) gout Hypercholesterolemia (Acute) Essential hypertension (Acute) Elev transaminase/LDH (Acute 06/14/07) elevated LFT's; (4 drinks/night) elevated GGT; neg. viral hep screen; neg. ferritin; LFT's decreased off ETOH arora Diabetes mellitus (Acute) diet controlled Depressive disorder (Acute) BPH associated with nocturia (Acute 12/06/16) Cardiac arrhythmia (Acute 06/14/07) SINUS LISSA Medical History Bladder cancer DM (diabetes mellitus) Hypertension Hypothyroidism Surgical History Colonoscopy - MAC (07/13/17) H/O Achilles tendon repair right PROCEDURES EXC/DEST INTVRT DISC NOS, 2004 05/10/17 DR. PIZARRO; CYSTOSCOPY, B/L RETROGRADE PYELOGRAM, BLADDER BX WITH FULGURATION Repair of inguinal hernia (~2003) TURBT 01/26/17-DR. PIZARRO Family History (Updated 10/29/20 @ 14:11 by Tran Zarate) Mother Personal history of malignant neoplasm COLON Father Hyperlipidemia Brother Personal history of malignant neoplasm SKIN Social History (Updated 10/29/20 @ 14:10 by Tran Zarate) Smoking/Tobacco Use Status: Former Tobacco Use tobacco type: cigarettes and pipe Quit Date: 07/16/79 Second Hand Exposure: Yes Smoking risk assessment performed?: Yes Alcohol Intake: current Alcohol Intake frequency: a few times a month Alcohol type: beer and wine Drug use: Occasionally Substance use type: marijuana Caregiver/Support person: No Household members: spouse Housing: house Communication Needs: Hard of Hearing Do you need help understanding health information?: Never Pets and animals: Yes Sexually active: Yes Do you think of yourself as: straight/heterosexual Current gender identity: male What is your relationship status?: How often do you talk on the phone with friends or family?: once per week How often do you get together with friends or relatives?: once per week How often do you attend synagogue or faith services?: 1-3 times per year Do you belong to any clubs or organized social groups?: no Panel score (0-1 are the most socially isolated patients): 1 What type of physical activity do you participate in: walking Duration: 15-30 minutes/day Frequency: 1-2 times per week Seatbelt use: always Drive intox or ride w/intox armor reconnaissance vehicle driver: No Do you feel safe at home: Yes Do you feel safe in your relationship?: Yes Meds Allergies and Home Medications Allergies Allergy/AdvReac Type Severity Reaction Status Date / Time amlodipine AdvReac Intermediate headache Verified 11/02/22 08:31 Home Medications Medication Instructions Recorded Confirmed Type naproxen sodium 220 mg capsule 440 mg PO daily prn 03/02/16 11/02/22 History (Gray) Fidideltouch Ultra Test Strips 1 ea miscellaneous DAILY #90 strips 11/14/17 11/02/22 Clinic blood-glucose meter ([employer] ##1 11/14/17 11/02/22 Rx Ultra2 Meter kit) lancets (OneTouch UltraSoft #90 ea 11/14/17 11/02/22 Rx Lancets) adjuvant AS01B (PF)vial 1 of 2 0.5 ml IM DAILY #0.5 mL 05/04/22 11/02/22 Rx (Shingrix Adjuvant Component (PF) intramuscular suspension) allopurinol 100 mg tablet 100 mg PO DAILY #90 tab-caps 08/14/22 11/02/22 Rx atorvastatin 20 mg tablet 20 mg PO DAILY #90 tabs 08/14/22 11/02/22 Rx fluoxetine 20 mg capsule (Prozac) 20 mg PO DAILY #90 caps 08/14/22 11/02/22 Rx levothyroxine 137 mcg tablet 137 mcg PO DAILY #90 tab-caps 08/14/22 11/02/22 Rx lisinopril 20 1 tab PO DAILY #90 tab-caps 08/14/22 11/02/22 Rx mg-hydrochlorothiazide 12.5 mg tablet metformin 500 mg tablet 500 mg PO BID #180 tabs 08/14/22 11/02/22 Rx blood sugar diagnostic #100 ea 09/20/22 11/02/22 Rx Exam Const General: cooperative and comfortable Neck Neck: supple Resp Effort & Inspection: normal respiratory effort Auscultation: clear to auscultation bilaterally Cardio Rate: regular rate Rhythm: regular rhythm GI Palpation: soft and no masses Neuro General: patient alert, patient awake and patient oriented x3 Time Spent Time spent with Patient: <40 minutes Time was spent: other
[2022-11-02] MEDS: Lactated Ringers 1,000 ML 80 ML IV (08:50)
--- NOTE | 2022-11-02 08:56 | W.ANESPRE ---
General Info Date of Service Date Performed: 11/02/22 Height: 5 ft 11 in Weight: 102.8 kg Body Mass Index (BMI): 31.6 Surgical Procedure: Operation Date: 11/02/22 09:55 Proposed Procedure Side Surgeon p Cysto,Possible Transurethral Resection Bladder Tumor Mdoe Nolasco MD Meds Allergies and Home Medications Allergies Allergy/AdvReac Type Severity Reaction Status Date / Time amlodipine AdvReac Intermediate headache Verified 11/02/22 08:31 Home Medication Medication Instructions Recorded naproxen sodium 220 mg capsule 440 mg PO daily prn 03/02/16 (Aleve) blood-glucose meter ([employer]at[employer]Touch ##1 11/14/17 Ultra2 Meter kit) lancets (Seat[employer]injaTouch UltraSoft #90 ea 11/14/17 Lancets) adjuvant AS01B (PF)vial 1 of 2 0.5 ml IM DAILY #0.5 mL 05/04/22 (Shingrix Adjuvant Component (PF) intramuscular suspension) allopurinol 100 mg tablet 100 mg PO DAILY #90 tab-caps 08/14/22 atorvastatin 20 mg tablet 20 mg PO DAILY #90 tabs 08/14/22 fluoxetine 20 mg capsule (Prozac) 20 mg PO DAILY #90 caps 08/14/22 levothyroxine 137 mcg tablet 137 mcg PO DAILY #90 tab-caps 08/14/22 lisinopril 20 1 tab PO DAILY #90 tab-caps 08/14/22 mg-hydrochlorothiazide 12.5 mg tablet metformin 500 mg tablet 500 mg PO BID #180 tabs 08/14/22 blood sugar diagnostic #100 ea 09/20/22 Current Visit Medications: Current Medications Generic Name Dose Route Start Last Admin Trade Name Freq PRN Reason Stop Dose Admin Ringer's Solution 1,000 mls @ 80 mls/hr 11/02/22 06:00 11/02/22 08:50 IV 12/01/22 23:59 80 mls/hr INFUSION DIDI Administration Cefazolin Sodium/Dextrose 2 gm in 50 mls @ 100 mls/hr 11/02/22 06:00 Ancef Duplex IVPB 12/01/22 23:59 PREOP DIDI IV Miscellaneous Supplies 1 each 11/02/22 06:00 Iv Access IV 12/01/22 23:59 DIRECTED DIDI Sodium Chloride 0 ml 11/02/22 06:00 Normal Saline Flush 10 Ml Syr IV 12/01/22 23:59 PRN PRN Sodium Chloride 0 ml 11/02/22 06:00 Normal Saline 10 Ml Vial IJ 12/01/22 23:59 DIRECTED PRN Sterile Water 0 ml 11/02/22 06:00 Water,Injection,Sterile 10 Ml Vial IJ 12/01/22 23:59 DIRECTED PRN PFSH Active Problems Active Problems: Problem Status Onset Code COVID-19 U07.1 Urgency incontinence N39.41 Sensorineural hearing loss (SNHL) of both ears H90.3 Hearing loss H91.90 Acute pain of left ear H92.02 Status post inguinal hernia repair Z98.890, Z87.19 Olecranon bursitis M70.20 History of discectomy Z98.890 History of Achilles tendon repair 09/01/15 Z98.890 Lumbago M54.5 Hypothyroidism E03.9 Hyperuricemia 12/06/16 E79.0 Hypercholesterolemia E78.00 Essential hypertension I10 Elev transaminase/LDH 06/14/07 R74.0 Diabetes mellitus E11.9 Depressive disorder F32.9 BPH associated with nocturia 12/06/16 N40.1, R35.1 Cardiac arrhythmia 06/14/07 I49.9 Medical History Medical History Bladder cancer DM (diabetes mellitus) Hypertension Hypothyroidism Surgical History Surgical History Colonoscopy - MAC (07/13/17) H/O Achilles tendon repair right PROCEDURES EXC/DEST INTVRT DISC NOS, 2004 05/10/17 DR. NOLASCO; CYSTOSCOPY, B/L RETROGRADE PYELOGRAM, BLADDER BX WITH FULGURATION Repair of inguinal hernia (~2003) TURBT 01/26/17-DR. NOLASCO Tobacco Smoking/Tobacco Use Status: Former Tobacco Use Passive smoking exposure: Yes Second hand exposure: Yes Alcohol Alcohol Intake: current Alcohol intake frequency: a few times a month Alcohol type: beer and wine Substance Use Substance use: Occasionally Substance use type: marijuana Vital Signs and Lab Results Vital Signs Most Recent Vital Signs in EMR: Most Recent Vital Signs Temp Pulse Resp BP Pulse Ox 36.5 C 60 18 133/88 96 11/02/22 08:36 11/02/22 08:36 11/02/22 08:36 11/02/22 08:36 11/02/22 08:36 Lab Results Blood Type / Crossmatch: No Data to Display Complete Blood Count: No Data to Display Complete Metabolic Panel: No Data to Display Liver Function Panel: No Data to Display Coagulation Panel: No Data to Display Cardiac Panel: No Data to Display Arterial Blood Gas: No Data to Display Venous Blood Gas: No Data to Display Pancreas Panel: No Data to Display Thyroid Panel: No Data to Display Infectious Disease: No Data to Display Blood Cultures: No Data to Display Toxicology Panel: No Data to Display Anesthesia Assessment and Plan Anesthesia History Personal History: No History of Anesthesia Complications Family History: No Family History of Anesthesia Complications Exercise Tolerance Exercise Tolerance: Metabolic Equivalents>4 Pertinent Negatives Pertinent Negatives: No Symptoms of GERD, No Major Cardiovascular Symptoms or Complaints and No Major Pulmonary Symptoms or Complaints Cardiac & Pulmonary Exam Cardiac Exam: Normal S1/S2 Heart Sounds Pulmonary Exam: Clear Bilateral Breath Sounds Implantable Cardiac Device Does patient have a Pacemaker or an ICD?: No Airway Exam Known Difficult Airway: No Mallampati Class: 2 Mouth Opening: Normal (> 3cm) Thyromental Distance: Greater than 3 cm Neck Range of Motion: Full ROM Neck Circumference: Normal Teeth Condition: Normal Dentition ASA Classification ASA Score: ASA 2 Emergency Case?: No NPO Status NPO Status: NPO Clears >2 hours, Solids >8 hours Anesthesia Plan Resuscitation Status: Full Code Anesthesia Technique: General Anesthesia Airway Planned: Natural Airway Monitors Used: Standard Monitors
[2022-11-02 09:09] VITALS: BMI 31.6
[2022-11-02] MEDS: Lidocaine 2% Jelly 6 ML SYR (09:17)
[2022-11-02] MEDS: ceFAZolin 2 GM/50 ML BAG IVPB (09:17)
--- NOTE | 2022-11-02 09:40 | URETHRABX_PTH ---
PATIENT: Alfa Leon LOC: [facility] U#:[id number] AGE/SX: 77/M ROOM: RE11/02/[address]: Mode Nolasco MD : 1945 BED: DIS: 11/02/2022 SPEC #: [id number] RECD: 11/02/22 12:32 STATUS: BELA REQ #: [id number] IRINA: 11/02/22 09:[address]: Mode Nolasco DEPT: Surgical Specimen RECD BY: Oumou Arteaga ENTERED: 11/02/22 12:32 SP TYPE: URETHRABX OTHR DR: Aakash Villarreal MD Tissues: 1 - URETHRA BIOPSY Procedures: GROSS AND MICRO LEVEL 4 Comments: [id number]
--- NOTE | 2022-11-02 09:45 | W.PM.DSUDISC ---
Date of service: 11/02/22 Time of Service: 09:45 Discharge Plan Disposition Condition: Stable Discharge Details Reason For Visit: cystoscopy Attending Provider: Mode Nolasco Primary Care Provider: Aakash Villarreal Home Meds and New Rx's Prescriptions: No Action Shingrix Adjuvant Component-PF Suspension 0.5 ml IM DAILY Qty: 0.5 1RF Rx Instructions: given 2nd dose 2-6 months after first naproxen sodium [Aleve] 220 MG capsule 440 mg PO daily prn (DME) lancets [OneTouch UltraSoft Lancets] 1 EACH misc 1 ea Miscellaneous DAILY Qty: 90 4RF (DME) blood-glucose meter [Buru BuruTouch Ultra2 Meter] 1 EACH kit 1 ea Miscellaneous DAILY Qty: 1 3RF ONETOUCH ULTRA TEST STRIPS 1 EACH strip 1 ea Miscellaneous DAILY Qty: 90 3RF allopurinol 100 mg tablet 100 mg PO DAILY Qty: 90 0RF Rx Instructions: one daily beginning 01/27. atorvastatin 20 mg tablet 20 mg PO DAILY Qty: 90 3RF levothyroxine 137 mcg tablet 137 mcg PO DAILY Qty: 90 3RF lisinopril-hydrochlorothiazide 20-12.5 mg tablet 1 tab PO DAILY Qty: 90 3RF metformin 500 mg tablet 500 mg PO BID Qty: 180 3RF fluoxetine [Prozac] 20 mg capsule 20 mg PO DAILY Qty: 90 3RF (DME) blood sugar diagnostic Strip See Rx Instructions .ROUTE .MEDSUPPLY Qty: 100 3RF Rx Instructions: test daily in a.m. Discharge Instructions Additional Instructions: followup 2 weeks for pathology result no straining/lifting for 3 to 5 days Activity:: no straining/lifting over 10 pounds for 3 to 5 days Shower/Bathe:: 24 hours Diet:: As Tolerated DS: Diagnosis Discharge Diagnosis (1) Bladder cancer:
--- NOTE | 2022-11-02 09:48 | ROE_ITS ---
Date of service: 11/02/22 Time of Service: 09:49 Operative Note Operative Note DATE OF PROCEDURE: 11/02/22 PRE-OP DIAGNOSIS: Bladder cancer POST-OP DIAGNOSIS: same PROCEDURE: cystoscopy/TUR and fulguration of prostatic urethral lesion SURGEON: Mode Nolasco ANESTHESIA TYPE: Local By Surgeon and General:No Airway Refer to Anesthesia Record ESTIMATED BLOOD LOSS: 5 PATHOLOGY: other (prostatic urethral lesion) COMPLICATIONS: None Patient was transported to: same day Implants: none Indications: This is a 77-year-old gentleman who has a history of urothelial cell carcinoma of the bladder. More recently, he has had some recurrences on the prostatic urethra. His tumors have been low-grade and noninvasive. He presents for surveillance cystoscopy and possible transurethral resection. Findings: Small papillary lesions along the prostatic urethra Procedure Description: The patient was given antibiotics and brought to the operating room on 11/02/2022. After successful induction of general anesthesia, he was placed in the dorsal lithotomy position. 2% Xylocaine jelly was instilled into the urethra to act as a local anesthetic. The 22 Latvian rigid cystoscope was passed through the urethra into the bladder. The urethra and bladder were inspected with a 30 degree lens. The pendulous, bulbar and membranous urethra all appeared normal with no strictures. The prostatic urethra showed a few, less than 1 cm papillary lesions of uncertain clinical significance. The bladder neck was entered and the bladder mucosa was inspected. Both ureteral orifices appeared normal with no blood coming from either side. Multiple scars were seen from previous transurethral resections. There were no papillary or nodular lesions within the bladder. These findings were confirmed on reinspection of the bladder using a 70 degree lens. The cystoscope was withdrawn and a 24 Latvian resectoscope sheath was passed through the urethra into the prostatic urethra. We used an [employer] resectoscope to take a transurethral resection biopsy of some of the papillary prostatic urethral mucosa. The biopsy was sent to pathology for permanent section. The remainder the prostatic mucosa was then cauterized with the button electrode. The bladder was emptied and the resectoscope was withdrawn. The patient tolerated this procedure well with no complications.
[2022-11-02 09:50] VITALS: BP 122/86; PULSE 58; RESP 16; TEMP 36.4; O2SAT 96
[2022-11-02] MEDS: Phenazopyridine 200 MG TAB PO (10:15)
--- NOTE | 2022-11-02 10:24 | W.ANESPOSTOP ---
Postoperative Evaluation Date, Time and Location Date Performed: 11/02/22 Time Performed: 10:10 Patient Location: Day Surgery Unit Vital Signs Most Recent Imported Vital Signs: Most Recent Vital Signs Temp Pulse Resp BP Pulse Ox 36.4 C L 58 L 16 122/86 96 11/02/22 09:50 11/02/22 09:50 11/02/22 09:50 11/02/22 09:50 11/02/22 09:50 Pain Score Most Recent Pain Score: Most Recent Pain Score Pain Level 0 11/02/22 09:50 Assessment Mental Status: Awake (Alert & Oriented to Patient Baseline) Airway and Respiratory Function: Patent airway with normal (patient baseline) respiratory exam Cardiovascular Function: Hemodynamically Stable Hydration Status: Adequately Hydrated Nausea & Vomiting: No Nausea or Vomiting Pain: Pt. Denies Any Pain Peripheral Nerve Block: Patient did not receive a nerve block
[2022-11-02 10:25] VITALS: PULSE 51; RESP 18; TEMP 36.6; O2SAT 98
== END 2022-11-02 11:30 | disposition home or self-care (01) ==
PROVIDERS: PCP Family Medicine; Visit Provider Urology
PROC: 0TBB8ZZ Excision of Bladder, Via Natural or Artificial Opening Endoscopic (ICD-10-PCS; CPT 52224; principal; 2022-11-02 09:45)
DX: C67.9 Malignant neoplasm of bladder, unspecified (principal); C68.0 Malignant neoplasm of urethra; E11.9 Type 2 diabetes mellitus without complications; E03.9 Hypothyroidism, unspecified; I10 Essential (primary) hypertension
CPT/HCPCS: 52224; 88305; J0690; J1885; J2405

== ENCOUNTER → 2022-11-24 14:59 | Outpatient (BNVA) | payer MEDICARE, BC, SELFPAY | PROVIDERS: PCP Family Medicine; Referring Provider Family Medicine; Visit Provider Urology | DX: C67.9 Malignant neoplasm of bladder, unspecified (principal) | CPT/HCPCS: 99213 ==

== ENCOUNTER 2022-12-29 00:25 | Outpatient (CLI) | payer MEDICARE, BC, SELFPAY ==
--- NOTE | 2022-12-29 07:00 | DI.US_ITS ---
Exam(s) US AAA SCREENING EXAM: US AAA SCREENING CLINICAL HISTORY: screening for aaa,z87.891,z13.6 COMPARISON: No exams were available for comparison FINDINGS: There is no evidence of abdominal aortic aneurysm. The maximum diameter of the abdominal aorta is 2. 6 cm proximally and the distal aorta tapers normally. Distal to the aortic bifurcation common iliac arteries measure upper normal diameters. IMPRESSION: No evidence of abdominal aortic aneurysm. DATA REPOSITORY:
== END 2022-12-29 00:45 ==
LOC: DI 00:25
PROVIDERS: PCP Family Medicine; Visit Provider Nurse Practitioner Family
DX: Z13.6 Encounter for screening for cardiovascular disorders (principal); Z87.891 Personal history of nicotine dependence
CPT/HCPCS: 76706

== ENCOUNTER 2023-06-21 07:51 | Outpatient (CLI) | payer MEDICARE, BC, SELFPAY ==
[2023-06-21 08:46] LABS: HCT 43.9 % (40.0-50.0); HGB 15.1 g/dL (13.5-17.5); MCH 30.4 pg (27.0-33.0); MCHC 34.4 % (32.0-36.0); MCV 88 fL (80-95); MPV 8.5 fL (8.0-11.0); Platelet Count 311 10^3/uL (130-400); RBC 4.97 10^6/uL (4.36-5.78); RDW 11.8 % (11.8-14.1); RDW-SD 37.6 fL; WBC 9.32 10^3/uL (4.4-10.8)
[2023-06-21 09:01] LABS: Hemoglobin A1C 6.2 % (<5.7)
[2023-06-21 09:16] LABS: Anion Gap 12.5 mmol/L (3-11); BUN 20 mg/dL (7-18); CO2 24.5 mmol/L (21.0-32.0); Calcium 9.1 mg/dL (8.5-10.1); Calculated LDL 27 mg/dL (<100); Chloride 107 mmol/L (98-107); Cholesterol 117 mg/dL (<200); Estimated GFR 78.49 (mL/min/1.73m2); Glucose 117 mg/dL (74-106); HDL Cholesterol 43 mg/dL (40-60); Potassium 4.2 mmol/L (3.5-5.1); Sodium 144 mmol/L (136-145); TSH (W/Ref FT4) 0.56 uIU/mL (0.36-3.74); Triglyceride 239 mg/dL (<150)
[2023-06-21 09:29] LABS: Vitamin D 25 Total 37.9 ng/mL (30-100)
== END 2023-06-21 07:52 | disposition home or self-care (01) ==
LOC: LBO 07:51
PROVIDERS: PCP Family Medicine; Visit Provider Family Medicine
DX: E87.1 Hypo-osmolality and hyponatremia (principal); E03.9 Hypothyroidism, unspecified; R53.83 Other fatigue; E78.00 Pure hypercholesterolemia, unspecified; E11.51 Type 2 diabetes mellitus with diabetic peripheral angiopathy without gangrene
CPT/HCPCS: 36415; 80048; 80061; 82306; 85027; 83036; 84443

== ENCOUNTER 2023-08-02 06:18 | Day surgery (SDC) | payer MEDICARE, BC, SELFPAY ==
--- NOTE | 2023-08-02 06:28 | W.ANESPRE ---
General Info Date of Service Date Performed: 08/02/23 Height: 6 ft Weight: 99 kg Body Mass Index (BMI): 29.6 Surgical Procedure: Operation Date: 08/02/23 07:40 Proposed Procedure Side Surgeon p Cystoscopy w/ Possible Transurethral Resection Bladder Tumor Mode Nolasco MD Meds Allergies and Home Medications Allergies Allergy/AdvReac Type Severity Reaction Status Date / Time amlodipine AdvReac Intermediate headache Verified 08/02/23 06:30 Home Medication Medication Instructions Recorded blood-glucose meter (OneTouch ##1 11/14/17 Ultra2 Meter kit) lancets (OneTouch UltraSoft #90 ea 11/14/17 Lancets) adjuvant AS01B (PF)vial 1 of 2 0.5 ml IM DAILY #0.5 mL 05/04/22 (Shingrix Adjuvant Component (PF) intramuscular suspension) blood sugar diagnostic #100 ea 09/20/22 allopurinol 100 mg tablet 100 mg PO DAILY #90 tab-caps 07/17/23 atorvastatin 20 mg tablet 20 mg PO DAILY #90 tabs 07/17/23 fluoxetine 20 mg capsule (Prozac) 20 mg PO DAILY #90 caps 07/17/23 levothyroxine 137 mcg tablet 137 mcg PO DAILY #90 tab-caps 07/17/23 lisinopril 20 1 tab PO DAILY #90 tab-caps 07/17/23 mg-hydrochlorothiazide 12.5 mg tablet metformin 1,000 mg tablet 1,000 mg PO BID #180 tabs 07/17/23 Current Visit Medications: Current Medications Generic Name Dose Route Start Last Admin Trade Name Freq PRN Reason Stop Dose Admin Ringer's Solution 1,000 mls @ 80 mls/hr 08/02/23 06:00 IV 08/02/23 23:59 INFUSION DIDI Cefazolin Sodium/Dextrose 2 gm in 50 mls @ 100 mls/hr 08/02/23 06:00 Ancef Duplex IVPB 08/02/23 23:59 PREOP DIDI IV Miscellaneous Supplies 1 each 08/02/23 06:00 Iv Access IV 08/02/23 23:59 DIRECTED DIDI Sodium Chloride 0 ml 08/02/23 06:00 Normal Saline Flush 10 Ml Syr IV 08/02/23 23:59 PRN PRN Sodium Chloride 0 ml 08/02/23 06:00 Normal Saline 10 Ml Vial IJ 08/02/23 23:59 DIRECTED PRN Sterile Water 0 ml 08/02/23 06:00 Water,Injection,Sterile 10 Ml Vial IJ 08/02/23 23:59 DIRECTED PRN PFSH Active Problems Active Problems: Problem Status Onset Code Vitamin D insufficiency E55.9 History of smoking Z87.891 COVID-19 U07.1 Urgency incontinence N39.41 Sensorineural hearing loss (SNHL) of both ears H90.3 Hearing loss H91.90 Acute pain of left ear H92.02 History of Achilles tendon repair 09/01/15 Z98.890 History of discectomy Z98.890 Olecranon bursitis M70.20 Status post inguinal hernia repair Z98.890, Z87.19 Lumbago M54.5 Hypothyroidism E03.9 Hyperuricemia 12/06/16 E79.0 Hypercholesterolemia E78.00 Essential hypertension I10 Elev transaminase/LDH 06/14/07 R74.0 Diabetes mellitus E11.9 Depressive disorder F32.9 BPH associated with nocturia 12/06/16 N40.1, R35.1 Cardiac arrhythmia 06/14/07 I49.9 Medical History Medical History Bladder cancer DM (diabetes mellitus) Hypertension Hypothyroidism Surgical History Surgical History Colonoscopy - MAC (07/13/17) H/O Achilles tendon repair right PROCEDURES EXC/DEST INTVRT DISC NOS, 2004 05/10/17 DR. NOLASCO; CYSTOSCOPY, B/L RETROGRADE PYELOGRAM, BLADDER BX WITH FULGURATION Repair of inguinal hernia (~2003) TURBT 01/26/17-DR. NOLASCO Tobacco Smoking/Tobacco Use Status: Former Tobacco Use Passive smoking exposure: No Second hand exposure: Yes Alcohol Alcohol Intake: current Alcohol intake frequency: a few times a month Alcohol type: beer and wine Substance Use Substance use: Occasionally Substance use type: marijuana Vital Signs and Lab Results Lab Results Blood Type / Crossmatch: No Data to Display Complete Blood Count: No Data to Display Complete Metabolic Panel: No Data to Display Liver Function Panel: No Data to Display Coagulation Panel: No Data to Display Cardiac Panel: No Data to Display Arterial Blood Gas: No Data to Display Venous Blood Gas: No Data to Display Pancreas Panel: No Data to Display Thyroid Panel: No Data to Display Infectious Disease: No Data to Display Blood Cultures: No Data to Display Toxicology Panel: No Data to Display Imaging and Studies Imaging and Studies Study information below may be from another EMR and interpreted by another provider. Please see original notes in EMR for more complete details. Other Study Summary:: historic 2022 aorta u/s and 2017 ct reviewed and results in chart Anesthesia Assessment and Plan Anesthesia History Personal History: No History of Anesthesia Complications Family History: No Family History of Anesthesia Complications Exercise Tolerance Exercise Tolerance: Metabolic Equivalents>4 Pertinent Negatives Pertinent Negatives: No Symptoms of GERD, No Major Cardiovascular Symptoms or Complaints, No Major Pulmonary Symptoms or Complaints and No History of CVA/TIA Cardiac & Pulmonary Exam Cardiac Exam: Normal S1/S2 Heart Sounds Pulmonary Exam: Clear Bilateral Breath Sounds Implantable Cardiac Device Does patient have a Pacemaker or an ICD?: No Airway Exam Known Difficult Airway: No Mallampati Class: 2 Mouth Opening: Normal (> 3cm) Thyromental Distance: Greater than 3 cm Neck Range of Motion: Full ROM Neck Circumference: Normal Teeth Condition: Normal Dentition (implant removed pre op) and Removable Dentures/Plates Upper (partial) ASA Classification ASA Score: ASA 2 Emergency Case?: No NPO Status NPO Status: NPO Clears >2 hours, Solids >8 hours Anesthesia Plan Resuscitation Status: Full Code Anesthesia Technique: General Anesthesia Airway Planned: Natural Airway Monitors Used: Standard Monitors Preoperative Comments:: Bilateral hearing aids to be left in
[2023-08-02 06:30] VITALS: BP 145/95; PULSE 60; RESP 16; TEMP 36.3; O2SAT 93
--- NOTE | 2023-08-02 06:52 | W.PM.HP.N ---
Date of service: 08/02/23 Time of Service: 06:52 Assessment and Plan Assessment and plan (1) Bladder cancer: Assessment and plan: We will plan to do surveillance cystoscopy and be prepared to do TURBT if any abnormality we visualize. History of Present Illness History of Present Illness Chief Complaint: Bladder cancer Narrative: This is a 77-year-old gentleman who has a history of low-grade, noninvasive urothelial cell carcinoma of the bladder. His initial diagnosis was made in 2019. More recently, he had recurrence in the prostatic urethra. His pathology from 6 months ago was consistent with low grade urothelial cell carcinoma versus PUNLMP. He presents now for cystoscopy with possible transurethral resection of any recurrent tumor. He has no gross hematuria. He does have some incontinence but he tells me it is manageable using pads at this point. He complains of occasional itching of the scrotum without any external lesions. Review of Systems Narrative: No fevers or chills Decreased hearing acuity. No vision change or dysphasia Hypothyroidism. Diabetes. No shortness of breath, cough or hemoptysis No chest pain or palpitations No nausea, vomiting, hepatitis, ulcers, jaundice, diarrhea or constipation No seizures, strokes or peripheral neuropathy No bleeding disorders or anemia No gout PFSH All Active Problems Vitamin D insufficiency (Acute) History of smoking (Acute) COVID-19 (Acute) Urgency incontinence (Acute) Sensorineural hearing loss (SNHL) of both ears (Acute) Hearing loss (Acute) Acute pain of left ear (Acute) History of Achilles tendon repair (Acute 09/01/15) History of discectomy (Acute) Olecranon bursitis (Acute) Status post inguinal hernia repair (Acute) Lumbago (Acute) disc surgery 2003 Hypothyroidism (Acute) Hyperuricemia (Acute 12/06/16) gout Hypercholesterolemia (Acute) Essential hypertension (Acute) Elev transaminase/LDH (Acute 06/14/07) elevated LFT's; (4 drinks/night) elevated GGT; neg. viral hep screen; neg. ferritin; LFT's decreased off ETOH arora Diabetes mellitus (Acute) diet controlled Depressive disorder (Acute) BPH associated with nocturia (Acute 12/06/16) Cardiac arrhythmia (Acute 06/14/07) SINUS LISSA Medical History Bladder cancer DM (diabetes mellitus) Hypertension Hypothyroidism Surgical History Colonoscopy - MAC (07/13/17) H/O Achilles tendon repair right PROCEDURES EXC/DEST INTVRT DISC NOS, 200305/10/17 DR. PIZARRO; CYSTOSCOPY, B/L RETROGRADE PYELOGRAM, BLADDER BX WITH FULGURATION Repair of inguinal hernia (~2003) TURBT 01/26/17-DR. PIZARRO Family History Mother Personal history of malignant neoplasm COLON Father Hyperlipidemia Brother Personal history of malignant neoplasm SKIN Social History Smoking/Tobacco Use Status: Former Tobacco Use tobacco type: cigarettes and pipe Quit Date: 07/16/79 Second Hand Exposure: Yes Smoking risk assessment performed?: Yes Alcohol Intake: current Alcohol Intake frequency: a few times a month Alcohol type: beer and wine Drug use: Occasionally Substance use type: marijuana Caregiver/Support person: No Household members: spouse Housing: house Communication Needs: Hard of Hearing Do you need help understanding health information?: Never Pets and animals: Yes Sexually active: Yes Do you think of yourself as: straight/heterosexual Current gender identity: male What is your relationship status?: How often do you talk on the phone with friends or family?: once per week How often do you get together with friends or relatives?: once per week How often do you attend religious or congregational services?: 1-3 times per year Do you belong to any clubs or organized social groups?: no Panel score (0-1 are the most socially isolated patients): 1 What type of physical activity do you participate in: walking Duration: 15-30 minutes/day Frequency: 1-2 times per week Seatbelt use: always Drive intox or ride w/intox auto crane driver: No Do you feel safe at home: Yes Do you feel safe in your relationship?: Yes Meds Allergies and Home Medications Allergies Allergy/AdvReac Type Severity Reaction Status Date / Time amlodipine AdvReac Intermediate headache Verified 08/02/23 06:30 Home Medications Medication Instructions Recorded Confirmed Type [employer] Ultra Test Strips 1 ea miscellaneous DAILY #90 strips 11/14/17 11/02/22 Clinic blood-glucose meter (OneTouch ##1 11/14/17 05/22/23 Rx Ultra2 Meter kit) lancets (OneTouch UltraSoft #90 ea 11/14/17 05/22/23 Rx Lancets) adjuvant AS01B (PF)vial 1 of 2 0.5 ml IM DAILY #0.5 mL 05/04/22 08/02/23 Rx (Shingrix Adjuvant Component (PF) intramuscular suspension) blood sugar diagnostic #100 ea 09/20/22 05/22/23 Rx allopurinol 100 mg tablet 100 mg PO DAILY #90 tab-caps 07/17/23 08/02/23 Rx atorvastatin 20 mg tablet 20 mg PO DAILY #90 tabs 07/17/23 08/02/23 Rx fluoxetine 20 mg capsule (Prozac) 20 mg PO DAILY #90 caps 07/17/23 08/02/23 Rx levothyroxine 137 mcg tablet 137 mcg PO DAILY #90 tab-caps 07/17/23 08/02/23 Rx lisinopril 20 1 tab PO DAILY #90 tab-caps 07/17/23 08/02/23 Rx mg-hydrochlorothiazide 12.5 mg tablet metformin 1,000 mg tablet 1,000 mg PO BID #180 tabs 07/17/23 08/02/23 Rx Exam Const General: cooperative Neck Neck: supple Resp Effort & Inspection: normal respiratory effort Auscultation: clear to auscultation bilaterally Cardio Rate: regular rate Rhythm: regular rhythm GI Palpation: soft and no masses Neuro General: patient alert, patient awake and patient oriented x3 Results Last Vital Signs Temp 36.3 C L 08/02/23 06:30 Pulse 60 08/02/23 06:30 Resp 16 08/02/23 06:30 BP 145/95 H 08/02/23 06:30 Pulse Ox 93 08/02/23 06:30 Time Spent Time spent with Patient: <40 minutes Time was spent: other
[2023-08-02] MEDS: Lactated Ringers 1,000 ML 80 ML IV (07:01)
[2023-08-02 07:31] VITALS: BMI 29.6
--- NOTE | 2023-08-02 07:54 | BLADDER_PTH ---
PATIENT: Alfa Leon LOC: [facility] U#:[id number] AGE/SX: 77/M ROOM: RE08/02/[address]: Mode Nolasco MD : 1945 BED: DIS: 08/02/2023 SPEC #: [id number] RECD: 08/02/23 12:08 STATUS: BELA RE #: [id number] IRINA: 08/02/23 07:[address]: Mode Nolasco DEPT: Surgical Specimen RECD BY: Oumou Arteaga ENTERED: 08/02/23 12:08 SP TYPE: Bladder OTHR DR: Aakash Villarreal MD Tissues: 1 - BLADDER BIOPSY Procedures: GROSS AND MICRO LEVEL 4 Comments: [id number]
[2023-08-02] MEDS: Lidocaine 2% Jelly 6 ML SYR (07:56)
--- NOTE | 2023-08-02 08:00 | W.PM.DSUDISC ---
Date of service: 08/02/23 Time of Service: 08:00 Discharge Plan Disposition Patient Disposition: Home Condition: Stable Discharge Details Reason For Visit: bladder tumor Attending Provider: Mode Nolasco Primary Care Provider: Aakash Villarreal Home Meds and New Rx's Prescriptions: No Action Shingrix Adjuvant Component-PF Suspension 0.5 ml IM DAILY Qty: 0.5 1RF Rx Instructions: given 2nd dose 2-6 months after first (DME) lancets [OneTouch UltraSoft Lancets] 1 EACH misc 1 ea Miscellaneous DAILY Qty: 90 4RF (DME) blood-glucose meter [Act[employer] SolutionsTouch Ultra2 Meter] 1 EACH kit 1 ea Miscellaneous DAILY Qty: 1 3RF ONETOUCH ULTRA TEST STRIPS 1 EACH strip 1 ea Miscellaneous DAILY Qty: 90 3RF (DME) blood sugar diagnostic Strip See Rx Instructions .ROUTE .MEDSUPPLY Qty: 100 3RF Rx Instructions: test daily in a.m. allopurinol 100 mg tablet 100 mg PO DAILY Qty: 90 0RF Rx Instructions: one daily beginning 01/27. atorvastatin 20 mg tablet 20 mg PO DAILY Qty: 90 3RF fluoxetine [Prozac] 20 mg capsule 20 mg PO DAILY Qty: 90 3RF levothyroxine 137 mcg tablet 137 mcg PO DAILY Qty: 90 3RF lisinopril-hydrochlorothiazide 20-12.5 mg tablet 1 tab PO DAILY Qty: 90 3RF metformin 1,000 mg tablet 1,000 mg PO BID Qty: 180 3RF Discharge Instructions Additional Instructions: followup to review pathology results @ 2 weeks Activity:: Activity as Tolerated Shower/Bathe:: 24 hours Diet:: As Tolerated Discharge Orders Discharge Orders: Discharge Order (Routine); Ordered 08/02/23 Ordered By: Mode Nolasco DS: Diagnosis Discharge Diagnosis (1) Bladder cancer:
--- NOTE | 2023-08-02 08:03 | BRIEFOP_ITS ---
Date of service: 08/02/23 Time of Service: 08:03 Brief Operative Note Procedure/Pre & Post Op Diagnoses/Patient Financial Services Manager: Operation Date: 08/02/23 07:40 Pre-Op Diagnosis: Bladder Tumor Post-Op Diagnosis: Bladder Tumor Anesthesia Anesthesia Type: General:No Airway 5 Specimen/Culture Specimen(s): bladder tumor Complications Complications: None Additional Procedure Notes Note: cystoscopy with TUR bladder tumor (less than 2 cm)
--- NOTE | 2023-08-02 08:05 | W.PM.OP ---
Date of service: 08/02/23 Time of Service: 08:05 Operative Note Operative Note DATE OF PROCEDURE: 08/02/23 PRE-OP DIAGNOSIS: Bladder tumor POST-OP DIAGNOSIS: same PROCEDURE: cystoscopy with transurethral resection bladder tumor SURGEON: Mode Nolasco ANESTHESIA TYPE: General:No Airway Refer to Anesthesia Record ESTIMATED BLOOD LOSS: 5 PATHOLOGY: other (bladder tumor) COMPLICATIONS: None Patient was transported to: same day Patient's condition: stable Implants: none Indications: This is a 77-year-old gentleman who has a history of low-grade, noninvasive urothelial cell carcinoma of the bladder. He presents for surveillance cystoscopy and possible transurethral resection of any visible bladder tumor Findings: Small papillary lesion (less than 2 cm) on the right lateral bladder wall Procedure Description: The patient was brought to the operating room on 08/02/2023. He was given preoperative antibiotics. After successful induction of general anesthesia, he was placed in the dorsal lithotomy position. His genitalia was prepped with Betadine. 2% Xylocaine jelly was instilled into the urethra to act as a local anesthetic. A 22 Swedish rigid cystoscope was then passed through the urethra into the bladder. The urethra and bladder were inspected with the 30 degree lens. The pendulous, bulbar and membranous urethra's appeared normal with some mild strictures in the bulbous urethra. I was able to easily traverse these narrowed areas with the cystoscope. The prostatic urethra showed evidence of previous transurethral resection/biopsy of the prostatic urethral mucosa. No new papillary lesions were seen on the prostatic urethra. The bladder neck was entered and the bladder mucosa was inspected. Both ureteral orifices appeared normal with no blood coming from either side. The left side of the bladder showed multiple scars from previous resections but no new papillary or nodular lesions. On the patient's right side, there was a single papillary lesion measuring less than 2 cm. No lesions were seen up towards the dome. We removed the cystoscope and passed a 24 Swedish resectoscope sheath through the urethra into the bladder. Transurethral resection of the visible lesion was performed with an [employer] resectoscope and bipolar cautery. The resected tissue was sent to pathology for permanent section. The remainder of the resection site was then cauterized with coagulation current. The patient tolerated the procedure well with no complications. He was taken back to the day surgery unit in stable condition.
[2023-08-02 08:06] VITALS: BP 113/73; PULSE 53; RESP 16; TEMP 36.1; O2SAT 96
[2023-08-02 08:31] VITALS: BP 135/87; PULSE 47; RESP 14; TEMP 36.1; O2SAT 97
--- NOTE | 2023-08-02 09:36 | W.ANESPOSTOP ---
Postoperative Evaluation Date, Time and Location Date Performed: 08/02/23 Time Performed: 09:36 Patient Location: Day Surgery Unit Vital Signs Most Recent Imported Vital Signs: Most Recent Vital Signs Temp Pulse Resp BP Pulse Ox 36.1 C L 47 L 14 135/87 97 08/02/23 08:31 08/02/23 08:31 08/02/23 08:31 08/02/23 08:31 08/02/23 08:31 Pain Score Most Recent Pain Score: Most Recent Pain Score Pain Level 0 08/02/23 08:31 Assessment Mental Status: Awake (Alert & Oriented to Patient Baseline) Airway and Respiratory Function: Patent airway with normal (patient baseline) respiratory exam Cardiovascular Function: Hemodynamically Stable Hydration Status: Adequately Hydrated Nausea & Vomiting: No Nausea or Vomiting Pain: Pt. Denies Any Pain Peripheral Nerve Block: Patient did not receive a nerve block
== END 2023-08-02 10:00 | disposition home or self-care (01) ==
PROVIDERS: PCP Family Medicine; Visit Provider Urology
PROC: 0TBB8ZZ Excision of Bladder, Via Natural or Artificial Opening Endoscopic (ICD-10-PCS; CPT 52234; principal; 2023-08-02 07:30)
DX: C67.2 Malignant neoplasm of lateral wall of bladder (principal); I10 Essential (primary) hypertension; E78.00 Pure hypercholesterolemia, unspecified; E11.9 Type 2 diabetes mellitus without complications
CPT/HCPCS: 52234; 88305; J0131; J1100; J1885; J2001; J2405; J2704

== ENCOUNTER → 2023-08-16 14:06 | Outpatient (BNVA) | payer MEDICARE, BC, SELFPAY | PROVIDERS: PCP Family Medicine; Referring Provider Family Medicine; Visit Provider Urology | DX: C67.9 Malignant neoplasm of bladder, unspecified (principal) | CPT/HCPCS: 99213 ==

== ENCOUNTER → 2023-10-04 15:23 | Outpatient (BNVA) | payer MEDICARE, BC, SELFPAY | PROVIDERS: PCP Family Medicine; Referring Provider Family Medicine; Visit Provider Physical Therapy Assistant | DX: Z12.11 Encounter for screening for malignant neoplasm of colon (principal); Z86.010 Personal history of colon polyps; Z80.0 Family history of malignant neoplasm of digestive organs ==

== ENCOUNTER → 2024-01-31 13:29 | Outpatient (BNVA) | payer MEDICARE, BC, SELFPAY | PROVIDERS: PCP Family Medicine; Referring Provider Family Medicine; Visit Provider Physical Therapy Assistant | DX: Z12.11 Encounter for screening for malignant neoplasm of colon (principal); Z86.010 Personal history of colon polyps; Z80.0 Family history of malignant neoplasm of digestive organs ==

== ENCOUNTER 2024-02-04 06:13 | Day surgery (SDC) | payer MEDICARE, BC, SELFPAY ==
--- NOTE | 2024-02-03 13:36 | W.PM.DSUDISC ---
Date of service: 02/04/24 Time of Service: 07:49 Discharge Plan Disposition Patient Disposition: Home Condition: Good Discharge Details Reason For Visit: screening colonoscopy Attending Provider: Abner Falk Primary Care Provider: Aakash Villarreal Home Meds and New Rx's Prescriptions: Continued (DME) lancets [OneTouch UltraSoft Lancets] 1 EACH misc 1 ea Miscellaneous DAILY Qty: 90 4RF (DME) blood-glucose meter [OneTouch Ultra2 Meter] 1 EACH kit 1 ea Miscellaneous DAILY Qty: 1 3RF ONETOUCH ULTRA TEST STRIPS 1 EACH strip 1 ea Miscellaneous DAILY Qty: 90 3RF (DME) blood sugar diagnostic Strip See Rx Instructions .ROUTE .MEDSUPPLY Qty: 100 3RF Rx Instructions: test daily in a.m. atorvastatin 20 mg tablet 20 mg PO DAILY Qty: 90 3RF fluoxetine [Prozac] 20 mg capsule 20 mg PO DAILY Qty: 90 3RF levothyroxine 137 mcg tablet 137 mcg PO DAILY Qty: 90 3RF lisinopril-hydrochlorothiazide 20-12.5 mg tablet 1 tab PO DAILY Qty: 90 3RF metformin 1,000 mg tablet 1,000 mg PO BID Qty: 180 3RF Discontinued bisacodyl [Dulcolax (bisacodyl)] 5 mg tablet,delayed release (DR/EC) 5 mg PO ONCE Qty: 4 0RF Rx Instructions: Take per colonoscopy instructions provided by ordering providers office polyethylene glycol 3350 17 gram/dose powder 17 g PO ONCE Qty: 238 0RF Rx Instructions: Take per colonoscopy instructions provided by ordering providers office Discharge Instructions Instructions: Colon polyps Additional Instructions: Moy, we were able to complete your colonoscopy today without any difficulty. I did find and removed 2 polyps. One was extremely small, and may not even be a true polyp. Regardless, I took this out we will send it off for testing, the other was a little bit friable, and in fact bleeding slightly. This was also removed without any issues. As I mentioned, both of these polyps will be sent off to the pathologist to tell us what type they are. That information will be used to help guide recommendations for your next colonoscopy. The most modern recommendations for colonoscopies suggest that patients consider the test up to age 85. And with family history, I would recommend no longer than 5 years in between colonoscopies. However this is just a recommendation. Once I have the results of the polyp report, I will be in touch with final recommendations, and I would encourage you to discuss that with your primary care physician, and give it some thought before making any final decisions. If you need anything, or have any questions in the meantime, please let me know 1. If tolerated, consume a soft, low fiber diet for 1-2 days. 2. Do not drive, drink alcohol, operate machinery, make critical decisions, or do activities that require coordination or balance for 24 hours. 3. Because air was put into your colon during the procedure, expelling air from your rectum (passing gas or farting) is normal. 4. You may not have a bowel movement for 1-3 days because of the colonoscopy prep. This is normal. 5. Go directly to the emergency room if you notice any of the following: Develop chills (warm to touch), or if you have a thermometer and your temperature is above 101 Difficulty breathing or difficultly swallowing Persistent vomiting Severe abdominal pain, other than gas cramps Severe chest pain Black, tarry stools Any bleeding ? exceeding one tablespoon 6. Call your physician if the site where your intravenous was started becomes red, swollen, painful, and warm to touch. 7. Your physician has reviewed your pre-procedure medications. Please continue to take those medications as previously ordered. You will be given specific information/education regarding any changes to your medications before leaving. Activity:: Activity as Tolerated Diet:: As Tolerated Discharge Orders Discharge Orders: Discharge Order (Routine); Ordered 02/03/24 Ordered By: Abner Falk DS: Diagnosis Discharge Diagnosis (1) Encounter for screening colonoscopy: Status: Acute Asessment and Plan: Follow-up on polypectomy results
--- NOTE | 2024-02-03 13:41 | COLE_ITS ---
Date of service: 02/04/24 Time of Service: 07:52 Colonoscopy Report Date of procedure: 02/04/24 Pre-op diagnosis general: screening colonoscopy Post-op diagnosis procedure note: other (Diverticulosis, colon polyps) Procedure: colonoscopy with polypectomy Surgeon: Abner Falk Anesthesia Type: General:No Airway Estimated blood loss (mL): 5 Pathology: other (0.5 cm pedunculated polyp in the ascending colon, 0.25 cm flat polyp at 75 cm) Complications: None Disposition: same day Indications: Moy is a 78 year old man who needs his next screening colonoscopy. He has a family history of colon cancer Prep: Miralax/Dulcolax Procedure Start Time: :27 Procedure End Time: 07:43 Retraction Time: 10 Findings: Diverticulosis, 0.5 cm pedunculated polyp in the ascending colon, 0.25 cm flat polyp at 75 cm Procedure Description: After the induction of anesthesia, and with the patient in left lateral decubitus position, I began by performing an external anorectal exam.? Perineum and skin were normal, as was the anal verge.? There was no evidence of external hemorrhoids.? Next, I performed a digital rectal exam.? I did not appreciate any abnormal findings.? Next, I advanced a colonoscope into the rectal vault.? I performed retroflexion.? This appeared normal.? Using insufflation, I then advanced the colonoscope beyond the rectal folds and into the sigmoid colon before advancing towards the cecum.? The scope was noted to be in the cecum by identification of the ileocecal valve and appendiceal orifice.? I then began withdrawing the colonoscope using repeated irrigation as necessary for full evaluation of the colonic mucosa. Within the ascending colon 0.5 cm pedunculated polyp. Mucosa was a bit friable, in fact bleeding a little bit. This was removed with cold snare polypectomy without any issues. It was hemostatic. I found another polyp at 75 cm from the anus. This was much smaller, less than 0.25 cm. This was removed with cold forcep polypectomy without any issues. Once the scope was withdrawn to the level of the rectum, great care was taken to examine portions of the rectal folds.? Finally, the scope was withdrawn and the patient was brought to the same-day surgery recovery unit as the anesthetic wore off. ?The findings and instructions were shared with the patient prior to discharge. [place] Bowel Prep [place] Bowel Prep Right Colon: 3 Left Colon: 3 Transverse Colon: 3 Total Score: 9
[2024-02-04 06:29] VITALS: BP 125/88; PULSE 54; RESP 16; TEMP 36.4; O2SAT 97
--- NOTE | 2024-02-04 06:29 | W.ANESPRE ---
General Info Date of Service Date Performed: 02/04/24 Height: 6 ft Weight: 98.089 kg Body Mass Index (BMI): 29.3 Surgical Procedure: Operation Date: 02/04/24 07:35 Proposed Procedure Side Surgeon arielle Falk MD Meds Allergies and Home Medications Allergies Allergy/AdvReac Type Severity Reaction Status Date / Time amlodipine AdvReac Intermediate headache Verified 02/01/24 09:07 Home Medication ?Medication ?Instructions ?Recorded blood-glucose meter (OneTouch ##1 11/14/17 Ultra2 Meter kit) lancets (OneTouch UltraSoft #90 ea 11/14/17 Lancets) blood sugar diagnostic #100 ea 09/20/22 atorvastatin 20 mg tablet 20 mg PO DAILY #90 tabs 07/17/23 fluoxetine 20 mg capsule (Prozac) 20 mg PO DAILY #90 caps 07/17/23 levothyroxine 137 mcg tablet 137 mcg PO DAILY #90 tab-caps 07/17/23 lisinopril 20 1 tab PO DAILY #90 tab-caps 07/17/23 mg-hydrochlorothiazide 12.5 mg tablet metformin 1,000 mg tablet 1,000 mg PO BID #180 tabs 08/04/23 Current Visit Medications: Current Medications Generic Name Dose Route Start Last Admin Trade Name Freq PRN Reason Stop Dose Admin Ringer's Solution 1,000 mls @ 80 mls/hr 02/04/24 06:00 IV 02/04/24 23:59 INFUSION DIDI IV Miscellaneous Supplies 1 each 02/04/24 06:00 Iv Access IV 02/04/24 23:59 DIRECTED DIDI Ondansetron HCl 4 mg 02/03/24 13:43 Ondansetron 4 Mg/2 Ml Vial IVP 03/04/24 13:42 Q4H PRN PRN Nausea / Vomiting Sodium Chloride 0 ml 02/04/24 06:00 Normal Saline Flush 10 Ml Syr IV 02/04/24 23:59 PRN PRN Sodium Chloride 0 ml 02/04/24 06:00 Normal Saline 10 Ml Vial IJ 02/04/24 23:59 DIRECTED PRN Sterile Water 0 ml 02/04/24 06:00 Water,Injection,Sterile 10 Ml Vial IJ 02/04/24 23:59 DIRECTED PRN PFSH Active Problems Active Problems: Problem Status Onset Code Encounter for screening colonoscopy Acute Z12.11 Family history of leukemia Acute Z80.6 Leg weakness Acute R29.898 Vitamin D insufficiency Acute E55.9 History of smoking Acute Z87.891 COVID-19 Acute U07.1 Urgency incontinence Acute N39.41 Sensorineural hearing loss (SNHL) of both ears Acute H90.3 Hearing loss Acute H91.90 Acute pain of left ear Acute H92.02 History of Achilles tendon repair Acute 09/01/15 Z98.890 History of discectomy Acute Z98.890 Olecranon bursitis Acute M70.20 Status post inguinal hernia repair Acute Z98.890, Z87.19 Lumbago Acute M54.5 Hypothyroidism Acute E03.9 Hyperuricemia Acute 12/06/16 E79.0 Hypercholesterolemia Acute E78.00 Essential hypertension Acute I10 Elev transaminase/LDH Acute 06/14/07 R74.0 Diabetes mellitus Acute E11.9 Depressive disorder Acute F32.9 BPH associated with nocturia Acute 12/06/16 N40.1, R35.1 Cardiac arrhythmia Acute 06/14/07 I49.9 Medical History Medical History Bladder cancer DM (diabetes mellitus) Hypertension Hypothyroidism Surgical History Surgical History Colonoscopy - [facility] (07/13/17) H/O Achilles tendon repair right PROCEDURES EXC/DEST INTVRT DISC NOS, 2004 05/10/17 DR. PIZARRO; CYSTOSCOPY, B/L RETROGRADE PYELOGRAM, BLADDER BX WITH FULGURATION Repair of inguinal hernia (~2003) TURBT 01/26/17-DR. PIZARRO Tobacco Smoking/Tobacco Use Status: Former Tobacco Use Passive smoking exposure: No Second hand exposure: Yes Alcohol Alcohol Intake: current Alcohol intake frequency: a few times a month Alcohol type: beer and wine Substance Use Substance use: Occasionally Substance use type: marijuana Vital Signs and Lab Results Vital Signs Most Recent Vital Signs in EMR: Temp Pulse Resp BP Pulse Ox 36.4 C L 54 L 16 125/88 97 02/04/24 06:29 02/04/24 06:29 02/04/24 06:29 02/04/24 06:29 02/04/24 06:29 Lab Results Blood Type / Crossmatch: No Data to Display Complete Blood Count: No Data to Display Complete Metabolic Panel: No Data to Display Liver Function Panel: No Data to Display Coagulation Panel: No Data to Display Cardiac Panel: No Data to Display Arterial Blood Gas: No Data to Display Venous Blood Gas: No Data to Display Pancreas Panel: No Data to Display Thyroid Panel: No Data to Display Infectious Disease: No Data to Display Blood Cultures: No Data to Display Toxicology Panel: No Data to Display Imaging and Studies Imaging and Studies Study information below may be from another EMR and interpreted by another provider. Please see original notes in EMR for more complete details. Other Study Summary:: historic 2022 aorta u/s and 2017 ct reviewed and results in chart Anesthesia Assessment and Plan Anesthesia History Personal History: No History of Anesthesia Complications Family History: No Family History of Anesthesia Complications Exercise Tolerance Exercise Tolerance: Metabolic Equivalents>4 Pertinent Negatives Pertinent Negatives: No Symptoms of GERD, No Major Pulmonary Symptoms or Complaints and No History of CVA/TIA Cardiac & Pulmonary Exam Cardiac Exam: Normal S1/S2 Heart Sounds Pulmonary Exam: Clear Bilateral Breath Sounds Implantable Cardiac Device Does patient have a Pacemaker or an ICD?: No Airway Exam Known Difficult Airway: No Mallampati Class: 2 Mouth Opening: Normal (> 3cm) Thyromental Distance: Greater than 3 cm Neck Range of Motion: Full ROM Neck Circumference: Normal Teeth Condition: Normal Dentition (implant removed pre op) and Removable Dentures/Plates Upper (partial) ASA Classification ASA Score: ASA 2 Emergency Case?: No NPO Status NPO Status: NPO Clears >2 hours, Solids >8 hours Anesthesia Plan Resuscitation Status: Full Code Anesthesia Technique: General Anesthesia Airway Planned: Natural Airway Monitors Used: Standard Monitors
[2024-02-04] MEDS: Lactated Ringers 1,000 ML 80 ML IV (06:44)
[2024-02-04 07:16] VITALS: BMI 29.3
--- NOTE | 2024-02-04 07:30 | BOWEL_PTH ---
PATIENT: Alfa Leon LOC: [facility] U#:[id number] AGE/SX: 78/M ROOM: RE02/04/[address]: Abner Falk MD : 1945 BED: DIS: 02/04/2024 SPEC #: [id number] RECD: 02/04/24 12:36 STATUS: BELA RE #: [id number] IRINA: 02/04/24 07:[address]: Abner Falk DEPT: Surgical Specimen RECD BY: Oumou Arteaga ENTERED: 02/04/24 12:37 SP TYPE: Bowel OTHR DR: Aakash Villarreal MD Tissues: 1 - BIOPSY BOWEL 2 - BIOPSY BOWEL Procedures: GROSS AND MICRO LEVEL 4 Comments: [id number]
[2024-02-04 07:47] VITALS: BP 108/77; PULSE 51; RESP 16; TEMP 36.5; O2SAT 96
--- NOTE | 2024-02-04 08:12 | W.ANESPOSTOP ---
Postoperative Evaluation Date, Time and Location Date Performed: 02/04/24 Time Performed: 08:01 Patient Location: Day Surgery Unit Vital Signs Most Recent Imported Vital Signs: Most Recent Vital Signs Temp Pulse Resp BP Pulse Ox 36.5 C 51 L 16 108/77 96 02/04/24 07:47 02/04/24 07:47 02/04/24 07:47 02/04/24 07:47 02/04/24 07:47 Pain Score Most Recent Pain Score: Most Recent Pain Score Pain Level 0 02/04/24 07:47 Assessment Mental Status: Awake (Alert & Oriented to Patient Baseline) Airway and Respiratory Function: Patent airway with normal (patient baseline) respiratory exam Cardiovascular Function: Hemodynamically Stable Hydration Status: Adequately Hydrated Nausea & Vomiting: No Nausea or Vomiting Pain: Pt. Denies Any Pain Peripheral Nerve Block: Patient did not receive a nerve block
[2024-02-04 08:17] VITALS: BP 127/87; PULSE 52; RESP 16; TEMP 36.5; O2SAT 95
== END 2024-02-04 09:31 | disposition home or self-care (01) ==
LOC: SUR 06:14
PROVIDERS: PCP Family Medicine; Visit Provider Surgery
PROC: 0DJD8ZZ Inspection of Lower Intestinal Tract, Via Natural or Artificial Opening Endoscopic (ICD-10-PCS; CPT 45378; principal; 2024-02-04 07:30)
DX: Z12.11 Encounter for screening for malignant neoplasm of colon (principal); D12.2 Benign neoplasm of ascending colon; I10 Essential (primary) hypertension; K57.30 Diverticulosis of large intestine without perforation or abscess without bleeding; K63.89 Other specified diseases of intestine
CPT/HCPCS: 45385; 45380; 88305; J2704

== ENCOUNTER 2024-02-21 11:19 | Day surgery (SDC) | payer MEDICARE, BC, SELFPAY ==
[2024-02-21] VITALS (14 sets, daily range): BP systolic 143–164; BP diastolic 87–100; PULSE 45–68; RESP 16–22; TEMP 36.1–36.4; O2SAT 94–98; BMI 28.5
[2024-02-21] MEDS: Lactated Ringers 1,000 ML 80 ML IV (11:50)
--- NOTE | 2024-02-21 12:40 | W.PM.HP.N ---
Date of service: 02/21/24 Time of Service: 12:58 Assessment and Plan Assessment and plan (1) Bladder cancer: Assessment and plan: We will plan cystoscopy and possible transurethral resection of any visible urothelial abnormalities. History of Present Illness Narrative: Chief complaint: Bladder cancer This is a 78-year-old gentleman who has a history of urothelial cell carcinoma of the bladder. His tumors have been low-grade and noninvasive. His last occurrence was in July 2023. He presents for cystoscopy and possible TUR bladder tumor. He has no gross hematuria. He has no change in his voiding symptoms. Review of Systems Narrative: No fevers or chills Decreased hearing acuity. No vision change or dysphasia Hypothyroidism. Diabetes. No shortness of breath, cough or hemoptysis No chest pain or palpitations Since his last visit, he has had a colonoscopy and a polyp was identified. He is not yet aware of the pathology results. No nausea, vomiting, hepatitis, ulcers, jaundice No seizures, strokes or peripheral neuropathy No bleeding disorders or anemia No gout PFSH All Active Problems Encounter for screening colonoscopy (Acute) Family history of leukemia (Acute) Leg weakness (Acute) Vitamin D insufficiency (Acute) History of smoking (Acute) COVID-19 (Acute) Urgency incontinence (Acute) Sensorineural hearing loss (SNHL) of both ears (Acute) Hearing loss (Acute) Acute pain of left ear (Acute) History of Achilles tendon repair (Acute 09/01/15) History of discectomy (Acute) Olecranon bursitis (Acute) Status post inguinal hernia repair (Acute) Lumbago (Acute) disc surgery 2003 Hypothyroidism (Acute) Hyperuricemia (Acute 12/06/16) gout Hypercholesterolemia (Acute) Essential hypertension (Acute) Elev transaminase/LDH (Acute 06/14/07) elevated LFT's; (4 drinks/night) elevated GGT; neg. viral hep screen; neg. ferritin; LFT's decreased off ETOH arora Diabetes mellitus (Acute) diet controlled Depressive disorder (Acute) BPH associated with nocturia (Acute 12/06/16) Cardiac arrhythmia (Acute 06/14/07) SINUS LISSA Medical History Bladder cancer Hypertension Hypothyroidism DM (diabetes mellitus) Surgical History H/O Achilles tendon repair right TURBT 01/26/17-DR. PIAZRRO PROCEDURES EXC/DEST INTVRT DISC NOS, 2004 05/10/17 DR. PIZARRO; CYSTOSCOPY, B/L RETROGRADE PYELOGRAM, BLADDER BX WITH FULGURATION Repair of inguinal hernia (~2003) Colonoscopy - [facility] (01/2024) Family History Mother Personal history of malignant neoplasm COLON Father Hyperlipidemia Brother Personal history of malignant neoplasm SKIN Social History Smoking/Tobacco Use Status: Former Tobacco Use tobacco type: cigarettes and pipe Quit Date: 07/16/79 Second Hand Exposure: Yes Smoking risk assessment performed?: Yes Alcohol Intake: current Alcohol Intake frequency: a few times a month Alcohol type: beer and wine Drug use: Occasionally Substance use type: marijuana Details: 1-2x every few months Caregiver/Support person: No Household members: spouse Housing: house Communication Needs: Hard of Hearing Do you need help understanding health information?: Never Pets and animals: Yes Sexually active: Yes Do you think of yourself as: straight/heterosexual Current gender identity: male What is your relationship status?: How often do you talk on the phone with friends or family?: once per week How often do you get together with friends or relatives?: once per week How often do you attend sabianism or congregation services?: 1-3 times per year Do you belong to any clubs or organized social groups?: no Panel score (0-1 are the most socially isolated patients): 1 What type of physical activity do you participate in: walking Duration: 15-30 minutes/day Frequency: 1-2 times per week Seatbelt use: always 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 Do you feel safe at home: Yes Do you feel safe in your relationship?: Yes Meds Allergies and Home Medications Allergies Allergy/AdvReac Type Severity Reaction Status Date / Time amlodipine AdvReac Intermediate headache Verified 02/21/24 11:48 Home Medications ?Medication ?Instructions ?Recorded ?Confirmed ?Type PixelPin Ultra Test Strips 1 ea miscellaneous DAILY #90 strips 11/14/17 02/19/24 Clinic blood-glucose meter ([employer] ##1 11/14/17 11/20/23 Rx Ultra2 Meter kit) lancets (OneTouch UltraSoft #90 ea 11/14/17 11/20/23 Rx Lancets) atorvastatin 20 mg tablet 20 mg PO DAILY #90 tabs 07/17/23 02/21/24 Rx fluoxetine 20 mg capsule (Prozac) 20 mg PO DAILY #90 caps 07/17/23 02/21/24 Rx levothyroxine 137 mcg tablet 137 mcg PO DAILY #90 tab-caps 07/17/23 02/21/24 Rx lisinopril 20 1 tab PO DAILY #90 tab-caps 07/17/23 02/21/24 Rx mg-hydrochlorothiazide 12.5 mg tablet metformin 1,000 mg tablet 1,000 mg PO BID #180 tabs 08/04/23 02/21/24 Rx blood sugar diagnostic #100 ea 02/04/24 Rx Exam Const General: cooperative and comfortable Neck Neck: supple Resp Effort & Inspection: normal respiratory effort Auscultation: clear to auscultation bilaterally Cardio Rate: regular rate Rhythm: regular rhythm GI Palpation: soft and no masses Neuro General: patient alert, patient awake and patient oriented x3 Results Last Vital Signs Temp 36.4 C L 02/21/24 11:30 Pulse 55 L 02/21/24 11:30 Resp 16 02/21/24 11:30 BP 146/96 H 02/21/24 11:30 Pulse Ox 94 02/21/24 11:30 Time Spent Time spent with Patient: <40 minutes Time was spent: other
--- NOTE | 2024-02-21 13:16 | W.ANESPRE ---
General Info Date of Service Date Performed: 02/21/24 Height: 6 ft Weight: 95.7 kg Body Mass Index (BMI): 28.5 Surgical Procedure: Operation Date: 02/21/24 12:55 Proposed Procedure Side Surgeon p Cystoscopy w/Possible Transurethral Resection Bladder Tumor Mode Nolasco MD Meds Allergies and Home Medications Allergies Allergy/AdvReac Type Severity Reaction Status Date / Time amlodipine AdvReac Intermediate headache Verified 02/21/24 11:48 Home Medication ?Medication ?Instructions ?Recorded blood-glucose meter (OneTouch ##1 11/14/17 Ultra2 Meter kit) lancets (OneTouch UltraSoft #90 ea 11/14/17 Lancets) atorvastatin 20 mg tablet 20 mg PO DAILY #90 tabs 07/17/23 fluoxetine 20 mg capsule (Prozac) 20 mg PO DAILY #90 caps 07/17/23 levothyroxine 137 mcg tablet 137 mcg PO DAILY #90 tab-caps 07/17/23 lisinopril 20 1 tab PO DAILY #90 tab-caps 07/17/23 mg-hydrochlorothiazide 12.5 mg tablet metformin 1,000 mg tablet 1,000 mg PO BID #180 tabs 08/04/23 blood sugar diagnostic #100 ea 02/04/24 Current Visit Medications: Current Medications Generic Name Dose Route Start Last Admin Trade Name Alvinq PRN Reason Stop Dose Admin Ringer's Solution 1,000 mls @ 80 mls/hr 02/21/24 06:00 02/21/24 11:50 IV 03/21/24 23:59 80 mls/hr INFUSION DIDI Administration Cefazolin Sodium/Dextrose 2 gm in 50 mls @ 100 mls/hr 02/21/24 06:00 Ancef Duplex IVPB 02/21/24 16:00 PREOP DIDI IV Miscellaneous Supplies 1 each 02/21/24 06:00 Iv Access IV 03/21/24 23:59 DIRECTED DIDI Sodium Chloride 0 ml 02/21/24 06:00 Normal Saline Flush 10 Ml Syr IV 03/21/24 23:59 PRN PRN Sodium Chloride 0 ml 02/21/24 06:00 Normal Saline 10 Ml Vial IJ 03/21/24 23:59 DIRECTED PRN Sterile Water 0 ml 02/21/24 06:00 Water,Injection,Sterile 10 Ml Vial IJ 03/21/24 23:59 DIRECTED PRN PFSH Active Problems Active Problems: Problem Status Onset Code Encounter for screening colonoscopy Acute Z12.11 Family history of leukemia Acute Z80.6 Leg weakness Acute R29.898 Vitamin D insufficiency Acute E55.9 History of smoking Acute Z87.891 COVID-19 Acute U07.1 Urgency incontinence Acute N39.41 Sensorineural hearing loss (SNHL) of both ears Acute H90.3 Hearing loss Acute H91.90 Acute pain of left ear Acute H92.02 History of Achilles tendon repair Acute 09/01/15 Z98.890 History of discectomy Acute Z98.890 Olecranon bursitis Acute M70.20 Status post inguinal hernia repair Acute Z98.890, Z87.19 Lumbago Acute M54.5 Hypothyroidism Acute E03.9 Hyperuricemia Acute 12/06/16 E79.0 Hypercholesterolemia Acute E78.00 Essential hypertension Acute I10 Elev transaminase/LDH Acute 06/14/07 R74.0 Diabetes mellitus Acute E11.9 Depressive disorder Acute F32.9 BPH associated with nocturia Acute 12/06/16 N40.1, R35.1 Cardiac arrhythmia Acute 06/14/07 I49.9 Medical History Medical History Bladder cancer Hypertension Hypothyroidism DM (diabetes mellitus) Surgical History Surgical History H/O Achilles tendon repair right TURBT 01/26/17-DR. NOLASCO PROCEDURES EXC/DEST INTVRT DISC NOS, 2004 05/10/17 DR. NOLASCO; CYSTOSCOPY, B/L RETROGRADE PYELOGRAM, BLADDER BX WITH FULGURATION Repair of inguinal hernia (~2003) [place] [facility] [place] Tobacco Smoking/Tobacco Use Status: Former Tobacco Use Passive smoking exposure: No Second hand exposure: Yes Alcohol Alcohol Intake: current Alcohol intake frequency: a few times a month Alcohol type: beer and wine Substance Use Substance use: Occasionally Substance use type: marijuana Details: 1-2x every few months Vital Signs and Lab Results Vital Signs Most Recent Vital Signs in EMR: Most Recent Vital Signs Temp Pulse Resp BP Pulse Ox 36.4 C L 55 L 16 146/96 H 94 02/21/24 11:30 02/21/24 11:30 02/21/24 11:30 02/21/24 11:30 02/21/24 11:30 Point of Care Results Point of Care Results: Finger Stick Blood Glucose 117 02/21/24 11:39 Lab Results Blood Type / Crossmatch: No Data to Display Complete Blood Count: No Data to Display Complete Metabolic Panel: No Data to Display Liver Function Panel: No Data to Display Coagulation Panel: No Data to Display Cardiac Panel: No Data to Display Arterial Blood Gas: No Data to Display Venous Blood Gas: No Data to Display Pancreas Panel: No Data to Display Thyroid Panel: No Data to Display Infectious Disease: No Data to Display Blood Cultures: No Data to Display Toxicology Panel: No Data to Display Imaging and Studies Imaging and Studies Study information below may be from another EMR and interpreted by another provider. Please see original notes in EMR for more complete details. Other Study Summary:: historic 2022 aorta u/s and 2017 ct reviewed and results in chart Anesthesia Assessment and Plan Anesthesia History Personal History: No History of Anesthesia Complications Family History: No Family History of Anesthesia Complications Exercise Tolerance Exercise Tolerance: Metabolic Equivalents>4 Pertinent Negatives Pertinent Negatives: No Symptoms of GERD Cardiac & Pulmonary Exam Cardiac Exam: Normal S1/S2 Heart Sounds Pulmonary Exam: Clear Bilateral Breath Sounds Implantable Cardiac Device Does patient have a Pacemaker or an ICD?: No Airway Exam Known Difficult Airway: No Mallampati Class: 2 Mouth Opening: Normal (> 3cm) Thyromental Distance: Greater than 3 cm Neck Range of Motion: Full ROM Neck Circumference: Normal Teeth Condition: Normal Dentition (implant removed pre op) and Removable Dentures/Plates Upper (partial) ASA Classification ASA Score: ASA 2 Emergency Case?: No NPO Status NPO Status: NPO Clears >2 hours, Solids >8 hours Anesthesia Plan Resuscitation Status: Full Code Anesthesia Technique: General Anesthesia Airway Planned: LMA Monitors Used: Standard Monitors
[2024-02-21] MEDS: ceFAZolin 2 GM/50 ML BAG IVPB (13:30)
--- NOTE | 2024-02-21 13:45 | BLADDER_PTH ---
PATIENT: Alfa Leon LOC: [facility] U#:[id number] AGE/SX: 78/M ROOM: RE02/21/[address]: Mode Nolasco MD : 1945 BED: DIS: 02/21/2024 SPEC #: [id number] RECD: 02/22/24 11:24 STATUS: DOMENICDae RE #: [id number] IRINA: 02/21/24 13:[address]: Mode Nolasco DEPT: Surgical Specimen RECD BY: Deb Black ENTERED: 02/22/24 11:25 SP TYPE: Bladder OTHR DR: Aakash Villarreal MD Tissues: 1 - BLADDER BIOPSY Procedures: GROSS AND MICRO LEVEL 4 Comments: [id number]
--- NOTE | 2024-02-21 13:59 | W.PM.DSUDISC ---
Date of service: 02/21/24 Time of Service: 13:59 Discharge Plan Disposition Patient Disposition: Home Discharge Details Reason For Visit: cystoscopy Attending Provider: Mode Nolasco Primary Care Provider: Aakash Villarreal Home Meds and New Rx's Prescriptions: No Action (DME) lancets [OneTouch UltraSoft Lancets] 1 EACH misc 1 ea Miscellaneous DAILY Qty: 90 4RF (DME) blood-glucose meter [OneTouch Ultra2 Meter] 1 EACH kit 1 ea Miscellaneous DAILY Qty: 1 3RF ONETOUCH ULTRA TEST STRIPS 1 EACH strip 1 ea Miscellaneous DAILY Qty: 90 3RF atorvastatin 20 mg tablet 20 mg PO DAILY Qty: 90 3RF fluoxetine [Prozac] 20 mg capsule 20 mg PO DAILY Qty: 90 3RF levothyroxine 137 mcg tablet 137 mcg PO DAILY Qty: 90 3RF lisinopril-hydrochlorothiazide 20-12.5 mg tablet 1 tab PO DAILY Qty: 90 3RF metformin 1,000 mg tablet 1,000 mg PO BID Qty: 180 3RF (DME) blood sugar diagnostic Strip See Rx Instructions .ROUTE .MEDSUPPLY Qty: 100 3RF Rx Instructions: test daily in a.m. Discharge Instructions Additional Instructions: followup 1 to 2 weeks for pathology results Discharge Orders Discharge Orders: Discharge Order (Routine); Ordered 02/21/24 Ordered By: Mode Nolasco DS: Diagnosis Discharge Diagnosis (1) Bladder cancer:
--- NOTE | 2024-02-21 14:01 | ROE_ITS ---
Date of service: 02/21/24 Time of Service: 14:02 Operative Note Operative Note DATE OF PROCEDURE: 02/21/24 PRE-OP DIAGNOSIS: Bladder cancer POST-OP DIAGNOSIS: same PROCEDURE: cystoscopy with bladder biopsy and fulguration SURGEON: Mode Nolasco ANESTHESIA TYPE: Local By Surgeon and General LMA/ETT Refer to Anesthesia Record ESTIMATED BLOOD LOSS: 5 PATHOLOGY: other (bladder biopsies) COMPLICATIONS: None Patient was transported to: PACU Patient's condition: stable Implants: none Indications: This is a 78-year-old gentleman who has a history of low-grade, noninvasive urothelial cell carcinoma of the bladder. We have also found similar pathology on the prostatic urethra. He presents for surveillance cystoscopy and possible transurethral resection of any abnormalities. Findings: Multiple small papillary lesions on the left posterior bladder Procedure Description: The patient was given antibiotics and brought to the operating room on 02/21/2024. After successful induction of general anesthesia, he was placed in the dorsal lithotomy position. His genitalia was prepped and draped. 2% Xylocaine jelly was instilled into the urethra to act as a local anesthetic. A 22 Croatian rigid cystoscope was passed through the urethra into the bladder. The urethra and bladder were inspected with the 30 degree lens. The pendulous, bulbar and membranous urethra all appeared normal with no strictures. The prostatic urethra showed some papillary mucosa up toward the verumontanum. No active bleeding was seen in this area. The bladder neck was entered and then the bladder mucosa was inspected. On the left posterior bladder wall, multiple small papillary lesions (less than 1 cm) were visualized. No lesions were seen on the patient's right side or up toward the dome. Both orifices appeared normal. No blood was seen coming from either side. These findings were confirmed on reinspection of the bladder using a 70 degree lens. We then switched back to the 30 degree lens and took cold cup biopsies of 2 of the papillary lesions in the bladder. These biopsies were sent to pathology for permanent section. We then utilized the bipolar Bugbee electrode and bipolar cautery to cauterize both the biopsy sites and any additional papillary mucosa that we had seen in the bladder and in the prosthetic urethra. At the completion the procedure, no remaining papillary lesions were visualized and no active bleeding was seen. The scope was then removed. The patient tolerated the procedure well with no complications.
[2024-02-21] MEDS: Phenazopyridine 200 MG TAB PO (14:38)
--- NOTE | 2024-02-21 15:29 | W.ANESPOSTOP ---
Postoperative Evaluation Date, Time and Location Date Performed: 02/21/24 Time Performed: 13:00 Patient Location: Day Surgery Unit Vital Signs Most Recent Imported Vital Signs: Most Recent Vital Signs Temp Pulse Resp BP Pulse Ox 36.3 C L 60 16 143/100 H 95 02/21/24 15:00 02/21/24 15:00 02/21/24 15:00 02/21/24 15:00 02/21/24 15:00 Pain Score Most Recent Pain Score: Most Recent Pain Score Pain Level 0 02/21/24 15:00 Assessment Mental Status: Awake (Alert & Oriented to Patient Baseline) Airway and Respiratory Function: Patent airway with normal (patient baseline) respiratory exam Cardiovascular Function: Hemodynamically Stable Hydration Status: Adequately Hydrated Nausea & Vomiting: No Nausea or Vomiting Pain: Pain is tolerable per patient Peripheral Nerve Block: Patient did not receive a nerve block
== END 2024-02-21 15:40 | disposition home or self-care (01) ==
PROVIDERS: PCP Family Medicine; Visit Provider Urology
PROC: 0TBB8ZZ Excision of Bladder, Via Natural or Artificial Opening Endoscopic (ICD-10-PCS; CPT 52204; principal; 2024-02-21 12:45)
DX: C67.4 Malignant neoplasm of posterior wall of bladder; I10 Essential (primary) hypertension; E78.00 Pure hypercholesterolemia, unspecified; E11.9 Type 2 diabetes mellitus without complications
CPT/HCPCS: 52204; 88305; J0690; J1100; J1885; J2001; J2405; J2704

== ENCOUNTER → 2024-03-03 15:23 | Outpatient (BNVA) | payer MEDICARE, BC, SELFPAY | PROVIDERS: PCP Family Medicine; Referring Provider Family Medicine; Visit Provider Urology | DX: C67.9 Malignant neoplasm of bladder, unspecified (principal) | CPT/HCPCS: 99442 ==

== ENCOUNTER 2024-07-15 15:17 | Outpatient (CLI) | payer MEDICARE, BC, SELFPAY ==
[2024-07-15 12:57] LABS: Potassium 3.8 mmol/L (3.5-5.1); TSH (W/Ref FT4) 0.48 uIU/mL (0.36-3.74)
[2024-07-15 13:11] LABS: COMMENT (LAB VIEW ONLY) 152.41 mg/dL; Microalb ug/mg Crea 12.2 ug/mg Cr
== END 2024-07-15 15:18 | disposition home or self-care (01) ==
LOC: LOS 15:18
PROVIDERS: PCP Family Medicine; Visit Provider Family Medicine
DX: I10 Essential (primary) hypertension (principal); E03.9 Hypothyroidism, unspecified; E11.9 Type 2 diabetes mellitus without complications
CPT/HCPCS: 36415; 82043; 82565; 82570; 84132; 84443

== ENCOUNTER 2024-08-25 06:22 | Day surgery (SDC) | payer MEDICARE, BC, SELFPAY ==
[2024-08-25] VITALS (15 sets, daily range): BP systolic 125–145; BP diastolic 77–88; PULSE 46–59; RESP 8–21; TEMP 36.2–36.4; O2SAT 90–97; BMI 29.5
[2024-08-25] MEDS: Lactated Ringers 1,000 ML 80 ML IV (06:58)
--- NOTE | 2024-08-25 06:58 | W.PM.HP.N ---
Date of service: 08/25/24 Time of Service: 06:59 Assessment and Plan Assessment and plan (1) Bladder cancer: Assessment and plan: For cystoscopy and possible TUR Bladder Tumor History of Present Illness History of Present Illness Chief Complaint: Bladder cancer Narrative: Chief complaint: Bladder cancer This is a 78-year-old gentleman who has a history of urothelial cell carcinoma of the bladder. His tumors have been low-grade and noninvasive. He has had lesions found within the prostatic urethra as well. His last occurrence was in February 2024. He presents for cystoscopy and possible TUR bladder tumor. He has no gross hematuria. He has no change in his voiding symptoms. He continues to have itching in the groin area (refractory to creams and oral Diflucan). Review of Systems Narrative: No fevers or chills Decreased hearing acuity. No vision change or dysphasia Diabetes. Hypothyroidism No shortness of breath, cough or hemoptysis No chest pain or palpitations No nausea, vomiting, hepatitis, ulcers, jaundice No seizures, strokes or peripheral neuropathy No bleeding disorders or anemia Chronic back pain. No gout PFSH All Active Problems Foreign body in ear (Acute) Scrotal rash (Acute) Right leg weakness (Acute) Encounter for screening colonoscopy (Acute) Family history of leukemia (Acute) Leg weakness (Acute) Vitamin D insufficiency (Acute) History of smoking (Acute) COVID-19 (Acute) Urgency incontinence (Acute) Sensorineural hearing loss (SNHL) of both ears (Acute) Hearing loss (Acute) Acute pain of left ear (Acute) History of Achilles tendon repair (Acute 09/01/15) History of discectomy (Acute) Olecranon bursitis (Acute) Status post inguinal hernia repair (Acute) Lumbago (Acute) disc surgery 2003 Hypothyroidism (Acute) Hyperuricemia (Acute 12/06/16) gout Hypercholesterolemia (Acute) Essential hypertension (Acute) Elev transaminase/LDH (Acute 06/14/07) elevated LFT's; (4 drinks/night) elevated GGT; neg. viral hep screen; neg. ferritin; LFT's decreased off ETOH arora Diabetes mellitus (Acute) diet controlled Depressive disorder (Acute) BPH associated with nocturia (Acute 12/06/16) Cardiac arrhythmia (Acute 06/14/07) SINUS LISSA Medical History Tubular adenoma of colon (~02/2024) Bladder cancer Hypertension Hypothyroidism DM (diabetes mellitus) Surgical History H/O Achilles tendon repair right TURBT 01/26/17-DR. PIZARRO PROCEDURES EXC/DEST INTVRT DISC NOS, 2004 05/10/17 DR. PIZARRO; CYSTOSCOPY, B/L RETROGRADE PYELOGRAM, BLADDER BX WITH FULGURATION Repair of inguinal hernia (~2003) Colonoscopy - [facility] (01/2024) Family History Mother Personal history of malignant neoplasm COLON Father Hyperlipidemia Brother Personal history of malignant neoplasm SKIN Social History Smoking/Tobacco Use Status: Former Tobacco Use tobacco type: cigarettes and pipe Quit Date: 07/16/79 Second Hand Exposure: Yes Smoking risk assessment performed?: Yes Alcohol Intake: current Alcohol Intake frequency: a few times a month Alcohol type: beer and wine Drug use: Occasionally Substance use type: marijuana Caregiver/Support person: No Household members: spouse Housing: house Communication Needs: Hard of Hearing Do you need help understanding health information?: Never Pets and animals: Yes Sexually active: Yes Do you think of yourself as: straight/heterosexual Current gender identity: male What is your relationship status?: How often do you talk on the phone with friends or family?: once per week How often do you get together with friends or relatives?: once per week How often do you attend sabianist or congregation services?: 1-3 times per year Do you belong to any clubs or organized social groups?: no Panel score (0-1 are the most socially isolated patients): 1 What type of physical activity do you participate in: walking Duration: 15-30 minutes/day Frequency: 1-2 times per week Seatbelt use: always 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 Do you feel safe at home: Yes Do you feel safe in your relationship?: Yes Meds Allergies and Home Medications Allergies Allergy/AdvReac Type Severity Reaction Status Date / Time amlodipine AdvReac Intermediate headache Verified 08/25/24 06:30 Home Medications ?Medication ?Instructions ?Recorded ?Confirmed ?Type Onetouch Ultra Test Strips 1 ea miscellaneous DAILY #90 strips 11/14/17 08/22/24 Clinic blood-glucose meter (OneTouch ##1 11/14/17 05/23/24 Rx Ultra2 Meter kit) lancets (OneTouch UltraSoft #90 ea 11/14/17 05/23/24 Rx Lancets) blood sugar diagnostic #100 ea 02/04/24 05/23/24 Rx atorvastatin 20 mg tablet 20 mg PO DAILY #90 tabs 05/20/24 08/25/24 Rx fluoxetine 20 mg capsule (Prozac) 20 mg PO DAILY #90 caps 05/20/24 08/25/24 Rx levothyroxine 137 mcg tablet 137 mcg PO DAILY #90 tab-caps 05/20/24 08/25/24 Rx lisinopril 20 1 tab PO DAILY #90 tab-caps 05/20/24 08/25/24 Rx mg-hydrochlorothiazide 12.5 mg tablet metformin 1,000 mg tablet 1,000 mg PO BID #180 tabs 05/20/24 08/25/24 Rx Exam Const General: cooperative Neck Neck: supple Resp Effort & Inspection: normal respiratory effort Auscultation: clear to auscultation bilaterally Cardio Rate: regular rate Rhythm: regular rhythm GI Palpation: soft and no masses Neuro General: patient alert, patient awake and patient oriented x3 Results Last Vital Signs Temp 36.4 C L 08/25/24 06:20 Pulse 55 L 08/25/24 06:20 Resp 18 08/25/24 06:20 BP 125/81 08/25/24 06:20 Pulse Ox 96 08/25/24 06:20 Time Spent Time spent with Patient: <40 minutes Time was spent: other
--- NOTE | 2024-08-25 07:09 | W.ANESPRE ---
General Info Date of Service Date Performed: 08/25/24 Height: 6 ft Weight: 98.7 kg Body Mass Index (BMI): 29.5 Surgical Procedure: Operation Date: 08/25/24 07:40 Proposed Procedure Side Surgeon p Cystoscopy w/Transurethral Resection Bladder Tumor Mode Pizarro MD Meds Allergies and Home Medications Allergies Allergy/AdvReac Type Severity Reaction Status Date / Time amlodipine AdvReac Intermediate headache Verified 08/25/24 06:30 Home Medication ?Medication ?Instructions ?Recorded blood-glucose meter (OneTouch ##1 11/14/17 Ultra2 Meter kit) lancets (OneTouch UltraSoft #90 ea 11/14/17 Lancets) blood sugar diagnostic #100 ea 02/04/24 atorvastatin 20 mg tablet 20 mg PO DAILY #90 tabs 05/20/24 fluoxetine 20 mg capsule (Prozac) 20 mg PO DAILY #90 caps 05/20/24 levothyroxine 137 mcg tablet 137 mcg PO DAILY #90 tab-caps 05/20/24 lisinopril 20 1 tab PO DAILY #90 tab-caps 05/20/24 mg-hydrochlorothiazide 12.5 mg tablet metformin 1,000 mg tablet 1,000 mg PO BID #180 tabs 05/20/24 Current Visit Medications: Current Medications Generic Name Dose Route Start Last Admin Trade Name Freq PRN Reason Stop Dose Admin Ringer's Solution 1,000 mls @ 80 mls/hr 08/25/24 06:00 08/25/24 06:58 IV 08/25/24 23:59 80 mls/hr INFUSION DIDI Administration Cefazolin Sodium/Dextrose 2 gm in 50 mls @ 100 mls/hr 08/25/24 06:00 Ancef Duplex IVPB 08/25/24 23:59 PREOP DIDI IV Miscellaneous Supplies 1 each 08/25/24 06:00 Iv Access IV 08/25/24 23:59 DIRECTED DIDI Sodium Chloride 0 ml 08/25/24 06:00 Normal Saline Flush 10 Ml Syr IV 08/25/24 23:59 PRN PRN Sodium Chloride 0 ml 08/25/24 06:00 Normal Saline 10 Ml Vial IJ 08/25/24 23:59 DIRECTED PRN Sterile Water 0 ml 08/25/24 06:00 Water,Injection,Sterile 10 Ml Vial IJ 02/10/25 23:59 DIRECTED PRN PFSH Active Problems Active Problems: Problem Status Onset Code Foreign body in ear Acute T16.9XXA Scrotal rash Acute R21 Right leg weakness Acute R29.898 Encounter for screening colonoscopy Acute Z12.11 Family history of leukemia Acute Z80.6 Leg weakness Acute R29.898 Vitamin D insufficiency Acute E55.9 History of smoking Acute Z87.891 COVID-19 Acute U07.1 Urgency incontinence Acute N39.41 Sensorineural hearing loss (SNHL) of both ears Acute H90.3 Hearing loss Acute H91.90 Acute pain of left ear Acute H92.02 History of Achilles tendon repair Acute 09/01/16 Z98.890 History of discectomy Acute Z98.890 Olecranon bursitis Acute M70.20 Status post inguinal hernia repair Acute Z98.890, Z87.19 Lumbago Acute M54.5 Hypothyroidism Acute E03.9 Hyperuricemia Acute 12/06/16 E79.0 Hypercholesterolemia Acute E78.00 Essential hypertension Acute I10 Elev transaminase/LDH Acute 06/14/07 R74.0 Diabetes mellitus Acute E11.9 Depressive disorder Acute F32.9 BPH associated with nocturia Acute 12/06/16 N40.1, R35.1 Cardiac arrhythmia Acute 06/14/07 I49.9 Medical History Medical History Tubular adenoma of colon (~02/2024) Bladder cancer Hypertension Hypothyroidism DM (diabetes mellitus) Surgical History Surgical History H/O Achilles tendon repair right TURBT 01/26/17-DR. PIZARRO PROCEDURES EXC/DEST INTVRT DISC NOS, 200305/10/17 DR. PIZARRO; CYSTOSCOPY, B/L RETROGRADE PYELOGRAM, BLADDER BX WITH FULGURATION Repair of inguinal hernia (~2003) [place] [facility] [place] Tobacco Smoking/Tobacco Use Status: Former Tobacco Use Passive smoking exposure: No Second hand exposure: Yes Alcohol Alcohol Intake: current Alcohol intake frequency: a few times a month Alcohol type: beer and wine Substance Use Substance use: Occasionally Substance use type: marijuana Vital Signs and Lab Results Vital Signs Most Recent Vital Signs in EMR: Most Recent Vital Signs Temp Pulse Resp BP Pulse Ox 36.4 C L 55 L 18 125/81 96 08/25/24 06:20 08/25/24 06:20 08/25/24 06:20 08/25/24 06:20 08/25/24 06:20 Point of Care Results Point of Care Results: Finger Stick Blood Glucose 117 08/25/24 07:02 Lab Results Blood Type / Crossmatch: No Data to Display Complete Blood Count: No Data to Display Complete Metabolic Panel: No Data to Display Liver Function Panel: No Data to Display Coagulation Panel: No Data to Display Cardiac Panel: No Data to Display Arterial Blood Gas: No Data to Display Venous Blood Gas: No Data to Display Pancreas Panel: No Data to Display Thyroid Panel: No Data to Display Infectious Disease: No Data to Display Blood Cultures: No Data to Display Toxicology Panel: No Data to Display Imaging and Studies Imaging and Studies Study information below may be from another EMR and interpreted by another provider. Please see original notes in EMR for more complete details. Other Study Summary:: historic 2022 aorta u/s and 2016 ct reviewed and results in chart Anesthesia Assessment and Plan Anesthesia History Personal History: No History of Anesthesia Complications Family History: No Family History of Anesthesia Complications Exercise Tolerance Exercise Tolerance: Metabolic Equivalents>4 Pertinent Negatives Pertinent Negatives: No Symptoms of GERD Cardiac & Pulmonary Exam Cardiac Exam: Normal S1/S2 Heart Sounds Pulmonary Exam: Clear Bilateral Breath Sounds Implantable Cardiac Device Does patient have a Pacemaker or an ICD?: No Airway Exam Known Difficult Airway: No Mallampati Class: 2 Mouth Opening: Normal (> 3cm) Thyromental Distance: Greater than 3 cm Neck Range of Motion: Full ROM Neck Circumference: Normal Teeth Condition: Normal Dentition (implant removed pre op) and Removable Dentures/Plates Upper (partial) ASA Classification ASA Score: ASA 3 Emergency Case?: No NPO Status NPO Status: NPO Clears >2 hours, Solids >8 hours Anesthesia Plan Resuscitation Status: Full Code Anesthesia Technique: General Anesthesia Airway Planned: Natural Airway Monitors Used: Standard Monitors
[2024-08-25] MEDS: ceFAZolin 2 GM/50 ML BAG IVPB (07:30)
--- NOTE | 2024-08-25 07:52 | BLADDER_PTH ---
PATIENT: Alfa Leon LOC: [facility] U#:[id number] AGE/SX: 78/M ROOM: RE08/25/[address]: Mode Nolasco MD : [id number] BED: DIS: 08/25/2024 SPEC #: [id number] RECD: 08/25/24 12:52 STATUS: DOMENICDae RE #: [id number] IRINA: 08/25/24 07:[address]: Mode Nolasco DEPT: Surgical Specimen RECD BY: Oumou Arteaga ENTERED: 08/25/24 12:54 SP TYPE: Bladder OTHR DR: Aakash Villarreal MD Tissues: 1 - BLADDER BIOPSY Procedures: IMMUNOPEROXIDASE STAIN GROSS AND MICRO LEVEL 5 Comments: [id number]
[2024-08-25] MEDS: Lidocaine 2% Jelly 11 ML SYR (08:00)
--- NOTE | 2024-08-25 08:08 | W.PM.DSUDISC ---
Date of service: 08/25/24 Discharge Plan Disposition Patient Disposition: Home Condition: Stable Discharge Details Reason For Visit: cystoscopy with TUR Bladder tumor Attending Provider: Mode Nolasco Primary Care Provider: Aakash Villarreal Home Meds and New Rx's Prescriptions: New nystatin 100,000 unit/gram powder 1 applic topical TID Qty: 60 0RF No Action atorvastatin 20 mg tablet 20 mg PO DAILY Qty: 90 3RF metformin 1,000 mg tablet 1,000 mg PO BID Qty: 180 3RF fluoxetine [Prozac] 20 mg capsule 20 mg PO DAILY Qty: 90 3RF levothyroxine 137 mcg tablet 137 mcg PO DAILY Qty: 90 3RF lisinopril-hydrochlorothiazide 20-12.5 mg tablet 1 tab PO DAILY Qty: 90 3RF (DME) lancets [OneTouch UltraSoft Lancets] 1 EACH misc 1 ea Miscellaneous DAILY Qty: 90 4RF (DME) blood-glucose meter [OneTouch Ultra2 Meter] 1 EACH kit 1 ea Miscellaneous DAILY Qty: 1 3RF ONETOUCH ULTRA TEST STRIPS 1 EACH strip 1 ea Miscellaneous DAILY Qty: 90 3RF (DME) blood sugar diagnostic Strip See Rx Instructions .ROUTE .MEDSUPPLY Qty: 100 3RF Rx Instructions: test daily in a.m. Discharge Instructions Additional Instructions: Followup 2 weeks for pathology results I sent in a prescription for medicated powder to be used for your groin rash Activity:: Activity as Tolerated Shower/Bathe:: 24 hours Diet:: As Tolerated Discharge Orders Discharge Orders: Discharge Order (Routine); Ordered 08/25/24 Ordered By: Mode Nolasco DS: Diagnosis Discharge Diagnosis (1) Bladder cancer:
--- NOTE | 2024-08-25 08:12 | W.PM.OP ---
Operative Note Operative Note PRE-OP DIAGNOSIS: Bladder Cancer POST-OP DIAGNOSIS: same PROCEDURE: Cystoscopy, TUR Bladder tumor (@ 2 cm), fulguration of bladder mucosa SURGEON: Mode Nolasco ANESTHESIA TYPE: Local By Surgeon and General:No Airway Refer to Anesthesia Record ESTIMATED BLOOD LOSS: 5 PATHOLOGY: other (bladder tumor) COMPLICATIONS: None Patient was transported to: PACU Patient's condition: stable Implants: none Indications: This is a 78-year-old gentleman who has a history of low-grade, noninvasive urothelial cell carcinoma of the bladder. His most recent occurrence was 6 months ago. He presents for surveillance cystoscopy and possible transurethral resection of any visible tumor Findings: Less than 2 cm papillary lesion at the bladder neck (5 o'clock position) Small papillary mucosal lesions on the left posterior lateral bladder wall Procedure Description: The patient was given preoperative IV antibiotics and brought to the operating room on 08/25/2024. After successful induction of general anesthesia, he was placed in the dorsal lithotomy position. His genitalia was prepped and draped. 2% Xylocaine jelly was instilled into the urethra to act as a local anesthetic. A 22 Marshallese rigid cystoscope was passed through the urethra into the bladder. The urethra and bladder were inspected with the 30 degree lens. The pendulous, bulbar membranous urethra's appeared normal with no strictures. The prostatic urethra showed lateral lobe enlargement. At the bladder neck, there was a papillary lesion that measured less than 2 cm in largest dimension. The bladder neck was then entered and the bladder mucosa was inspected. Multiple surgical scars were seen from his previous TUR bladder tumors. On the left posterior lateral wall, there was a 2 x 3 cm patch of small papillary mucosa. No additional abnormalities were seen. I then removed the cystoscope and passed a 24 Marshallese resectoscope sheath through the urethra into the bladder. I used bipolar cautery to perform transurethral resection of the visible lesion at the bladder neck. The resected tissue was evacuated and sent to pathology for permanent section. I then utilized a ball electrode to cauterize the resection site. I also cauterized the abnormal mucosa on the left posterior lateral bladder wall. At the completion of the procedure, no active bleeding was seen. The bladder was emptied and the resectoscope was removed. The patient tolerated this procedure well with no complications. Date of Procedure: 08/25/24
[2024-08-25] MEDS: Fluconazole 100 MG TAB 200 MG PO (08:23)
--- NOTE | 2024-08-25 09:32 | W.ANESPOSTOP ---
Postoperative Evaluation Date, Time and Location Date Performed: 08/25/24 Time Performed: 09:02 Patient Location: Day Surgery Unit Vital Signs Most Recent Imported Vital Signs: Most Recent Vital Signs Temp Pulse Resp BP Pulse Ox 36.4 C L 57 L 16 145/77 H 97 08/25/24 09:00 08/25/24 09:00 08/25/24 09:00 08/25/24 09:00 08/25/24 09:00 Pain Score Most Recent Pain Score: Most Recent Pain Score Pain Level 0 08/25/24 09:00 Assessment Mental Status: Awake (Alert & Oriented to Patient Baseline) Airway and Respiratory Function: Patent airway with normal (patient baseline) respiratory exam Cardiovascular Function: Hemodynamically Stable Hydration Status: Adequately Hydrated Nausea & Vomiting: No Nausea or Vomiting Pain: Pt. Denies Any Pain Peripheral Nerve Block: Patient did not receive a nerve block
== END 2024-08-25 10:00 | disposition home or self-care (01) ==
PROVIDERS: PCP Family Medicine; Visit Provider Urology
PROC: 0TBB8ZZ Excision of Bladder, Via Natural or Artificial Opening Endoscopic (ICD-10-PCS; CPT 52234; principal; 2024-08-25 07:30)
DX: C67.4 Malignant neoplasm of posterior wall of bladder (principal); N40.1 Benign prostatic hyperplasia with lower urinary tract symptoms; R35.1 Nocturia; E11.9 Type 2 diabetes mellitus without complications; I10 Essential (primary) hypertension; E78.00 Pure hypercholesterolemia, unspecified
CPT/HCPCS: 52234; 88305; 88307; 88361; J0690; J1100; J1885; J2003; J2405; J2704

== ENCOUNTER → 2024-09-09 10:51 | Outpatient (BNVA) | payer MEDICARE, BC, SELFPAY | PROVIDERS: PCP Family Medicine; Referring Provider Family Medicine; Visit Provider Urology | DX: C67.9 Malignant neoplasm of bladder, unspecified (principal) | CPT/HCPCS: 99214 ==

== ENCOUNTER 2025-04-06 07:09 | Day surgery (SDC) | payer MEDICARE, BC, SELFPAY ==
[2025-04-06 07:26] VITALS: BP 147/94; PULSE 52; RESP 20; TEMP 36.3; O2SAT 96
[2025-04-06] MEDS: Lactated Ringers 1,000 ML 80 ML IV (07:38)
--- NOTE | 2025-04-06 08:46 | HPE_ITS ---
Date of service: 04/06/25 Time of Service: 08:46 Assessment and Plan Assessment and plan (1) Bladder cancer: Assessment and plan: We will perform cystoscopy. We will be prepared to do transurethral resection of any visible tumor recurrence. History of Present Illness History of Present Illness Chief Complaint: Bladder cancer Narrative: This is a 79-year-old gentleman who has a history of urothelial cell carcinoma of the bladder. His tumors have been low-grade and noninvasive. He has had lesions found within the prostatic urethra on one occasion as well. His last occurrence was in August 2024 at the bladder neck. He presents for cystoscopy and possible TUR bladder tumor. He has no gross hematuria. He has no change in his voiding symptoms. Review of Systems Narrative: No fevers or chills Decreased hearing acuity. No vision change or dysphasia Diabetes. Hypothyroidism No shortness of breath, cough or hemoptysis No chest pain or palpitations No nausea, vomiting, hepatitis, ulcers, jaundice No seizures, strokes or peripheral neuropathy No bleeding disorders or anemia Chronic back pain. No gout PFSH All Active Problems Foreign body in ear (Acute) Scrotal rash (Acute) Right leg weakness (Acute) Encounter for screening colonoscopy (Acute) Family history of leukemia (Acute) Leg weakness (Acute) Vitamin D insufficiency (Acute) History of smoking (Acute) COVID-19 (Acute) Urgency incontinence (Acute) Sensorineural hearing loss (SNHL) of both ears (Acute) Hearing loss (Acute) Acute pain of left ear (Acute) History of Achilles tendon repair (Acute 09/01/15) History of discectomy (Acute) Olecranon bursitis (Acute) Status post inguinal hernia repair (Acute) Lumbago (Acute) disc surgery 2003 Hypothyroidism (Acute) Hyperuricemia (Acute 12/06/16) gout Hypercholesterolemia (Acute) Essential hypertension (Acute) Elev transaminase/LDH (Acute 06/14/07) elevated LFT's; (4 drinks/night) elevated GGT; neg. viral hep screen; neg. ferritin; LFT's decreased off ETOH arora Diabetes mellitus (Acute) diet controlled Depressive disorder (Acute) BPH associated with nocturia (Acute 12/06/16) Cardiac arrhythmia (Acute 06/14/07) SINUS LISSA Medical History Tubular adenoma of colon (~02/2024) Bladder cancer Hypertension Hypothyroidism DM (diabetes mellitus) Surgical History H/O Achilles tendon repair right TURBT 01/26/17-DR. PIZARRO PROCEDURES EXC/DEST INTVRT DISC NOS, 2004 05/10/17 DR. PIZARRO; CYSTOSCOPY, B/L RETROGRADE PYELOGRAM, BLADDER BX WITH FULGURATION Repair of inguinal hernia (~2003) Colonoscopy - [facility] (01/2024) Family History Mother Personal history of malignant neoplasm COLON Father Hyperlipidemia Brother Personal history of malignant neoplasm SKIN Social History Smoking/Tobacco Use Status: Former Tobacco Use tobacco type: cigarettes and pipe Quit Date: 07/16/79 Second Hand Exposure: Yes Smoking risk assessment performed?: Yes Alcohol Intake: current Alcohol Intake frequency: a few times a week Alcohol type: beer and wine Drug use: Never Substance use type: marijuana Caregiver/Support person: No Household members: spouse Housing: house Communication Needs: Hard of Hearing Do you need help understanding health information?: Never Pets and animals: Yes Sexually active: Yes Do you think of yourself as: straight/heterosexual Current gender identity: male What is your relationship status?: How often do you talk on the phone with friends or family?: once per week How often do you get together with friends or relatives?: once per week How often do you attend hinduism or shinto services?: 1-3 times per year Do you belong to any clubs or organized social groups?: no Panel score (0-1 are the most socially isolated patients): 1 What type of physical activity do you participate in: walking Duration: 15-30 minutes/day Frequency: 1-2 times per week Seatbelt use: always 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 Do you feel safe at home: Yes Do you feel safe in your relationship?: Yes Meds Allergies and Home Medications Allergies Allergy/AdvReac Type Severity Reaction Status Date / Time amlodipine AdvReac Intermediate headache Verified 04/06/25 07:18 Home Medications ?Medication ?Instructions ?Recorded ?Confirmed ?Type Onetouch Ultra Test Strips 1 ea miscellaneous DAILY #9 0 strips 11/14/17 04/01/25 Clinic blood-glucose meter (OneTouch ##1 11/14/17 11/27/24 Rx Ultra2 Meter kit) lancets (OneTouch UltraSoft #90 ea 11/14/17 11/27/24 R x Lancets) blood sugar diagnostic #100 ea 02/04/24 11/27/24 Rx atorvastatin 20 mg tablet 20 mg PO DAILY #90 tabs 12/0604/06/25 Rx fluoxetine 20 mg capsule (Prozac) 20 mg PO DAILY #90 c aps 05/20/24 04/06/25 Rx levothyroxine 137 mcg tablet 137 mcg PO DAILY #90 tab- caps 05/20/24 04/06/25 Rx lisinopril 20 1 tab PO DAILY #90 tab-caps 05/20/24 04/06/25 Rx mg-hydrochlorothiazide 12.5 mg tablet metformin 1,000 mg tablet 1,000 mg PO BID #180 tabs 04/06/25 Rx ketoconazole 2 % topical cream 1 applic topical BID #3 0 grams 10/13/24 04/01/25 Rx oxybutynin chloride 5 mg tablet 2.5 - 5 mg (0.5 - 1 x 5 mg) PO 03/18/25 04/01/25 Rx BID-TID PRN bladder spasms #30 tabs Exam Const General: cooperative Neck Neck: supple Resp Effort & Inspection: normal respiratory effort Auscultation: clear to auscultation bilaterally Cardio Rate: regular rate Rhythm: regular rhythm GI Palpation: soft and no masses Neuro General: patient alert, patient awake and patient oriented x3 Results Last Vital Signs Temp 36.3 C L 04/06/25 07:26 Pulse 52 L 04/06/25 07:26 Resp 20 04/06/25 07:26 BP 147/94 H 04/06/25 07:26 Pulse Ox 96 04/06/25 07:26 Time Spent Time spent with Patient: <40 minutes Time was spent: preparing to see the patient(eg.review tests), referring, communicating with other health manager long term care and counseling the patient
[2025-04-06 09:15] VITALS: BMI 29.2
--- NOTE | 2025-04-06 09:15 | W.ANESPRE ---
General Info Date of Service Date Performed: 04/06/25 Height: 6 ft Weight: 97.6 kg Body Mass Index (BMI): 29.2 Surgical Procedure: Operation Date: 04/06/25 08:40 Proposed Procedure Side Surgeon p Cystoscopy w/Possible Transurethral Resection Bladder Tumor Mode Nolasco MD Actual Procedure Side Surgeon p Cystoscopy w/Possible Transurethral Resection Bladder Tumor Mode Nolasco MD Pre-Op Diagnosis Post-Op Diagnosis Bladder cancer Meds Allergies and Home Medications Allergies Allergy/AdvReac Type Severity Reaction Status Date / Time amlodipine AdvReac Intermediate headache Verified 04/06/25 07:18 Home Medication ?Medication ?Instructions ?Recorded blood-glucose meter (OneTouch ##1 11/14/17 Ultra2 Meter kit) lancets (OneTouch UltraSoft #90 ea 11/14/17 Lancets) blood sugar diagnostic #100 ea 02/04/24 atorvastatin 20 mg tablet 20 mg PO DAILY #90 tabs 05/20/24 fluoxetine 20 mg capsule (Prozac) 20 mg PO DAILY #90 caps 05/20/24 levothyroxine 137 mcg tablet 137 mcg PO DAILY #90 tab-caps 05/20/24 lisinopril 20 1 tab PO DAILY #90 tab-caps 05/20/24 mg-hydrochlorothiazide 12.5 mg tablet metformin 1,000 mg tablet 1,000 mg PO BID #180 tabs 05/20/24 ketoconazole 2 % topical cream 1 applic topical BID #30 grams 10/13/24 oxybutynin chloride 5 mg tablet 2.5 - 5 mg (0.5 - 1 x 5 mg) PO 03/18/25 BID-TID PRN bladder spasms #30 tabs Current Visit Medications: Current Medications Generic Name Dose Route Start Last Admin Trade Name Freq PRN Reason Stop Dose Admin Ringer's Solution 1,000 mls @ 80 mls/hr 04/06/25 06:00 04/06/25 07:38 IV 04/06/25 23:59 80 mls/hr INFUSION DIDI Administration Cefazolin Sodium/Dextrose 2 gm in 50 mls @ 100 mls/hr 04/06/25 06:00 Ancef Duplex IVPB 04/06/25 23:59 PREOP DIDI IV Miscellaneous Supplies 1 each 04/06/25 06:00 Iv Access IV 09/22/25 23:59 DIRECTED DIDI Sodium Chloride 0 ml 04/06/25 06:00 Normal Saline Flush 10 Ml Syr IV 04/06/25 23:59 PRN PRN Sodium Chloride 0 ml 04/06/25 06:00 Normal Saline 10 Ml Vial IJ 04/06/25 23:59 DIRECTED PRN Sterile Water 0 ml 04/06/25 06:00 Water,Injection,Sterile 10 Ml Vial IJ 04/06/25 23:59 DIRECTED PRN PFSH Active Problems Active Problems: Problem Status Onset Code Foreign body in ear Acute T16.9XXA Scrotal rash Acute R21 Right leg weakness Acute R29.898 Encounter for screening colonoscopy Acute Z12.11 Family history of leukemia Acute Z80.6 Leg weakness Acute R29.898 Vitamin D insufficiency Acute E55.9 History of smoking Acute Z87.891 COVID-19 Acute U07.1 Urgency incontinence Acute N39.41 Sensorineural hearing loss (SNHL) of both ears Acute H90.3 Hearing loss Acute H91.90 Acute pain of left ear Acute H92.02 History of Achilles tendon repair Acute 09/01/15 Z98.890 History of discectomy Acute Z98.890 Olecranon bursitis Acute M70.20 Status post inguinal hernia repair Acute Z98.890, Z87.19 Lumbago Acute M54.5 Hypothyroidism Acute E03.9 Hyperuricemia Acute 12/06/16 E79.0 Hypercholesterolemia Acute E78.00 Essential hypertension Acute I10 Elev transaminase/LDH Acute 06/14/07 R74.0 Diabetes mellitus Acute E11.9 Depressive disorder Acute F32.9 BPH associated with nocturia Acute 12/06/16 N40.1, R35.1 Cardiac arrhythmia Acute 06/14/07 I49.9 Medical History Medical History Tubular adenoma of colon (~02/2024) Bladder cancer Hypertension Hypothyroidism DM (diabetes mellitus) Surgical History Surgical History H/O Achilles tendon repair right TURBT 01/26/17-DR. NOLASCO PROCEDURES EXC/DEST INTVRT DISC NOS, 2004 05/10/17 DR. NOLASCO; CYSTOSCOPY, B/L RETROGRADE PYELOGRAM, BLADDER BX WITH FULGURATION Repair of inguinal hernia (~2003) Colonoscopy - MAC (01/2024) Tobacco Smoking/Tobacco Use Status: Former Tobacco Use Passive smoking exposure: No Second hand exposure: Yes Alcohol Alcohol Intake: current Alcohol intake frequency: a few times a week Alcohol type: beer and wine Substance Use Substance use: Never Substance use type: marijuana Vital Signs and Lab Results Vital Signs Most Recent Vital Signs in EMR: Most Recent Vital Signs Temp Pulse Resp BP Pulse Ox 36.3 C L 52 L 20 147/94 H 96 04/06/25 07:26 04/06/25 07:26 04/06/25 07:26 04/06/25 07:26 04/06/25 07:26 Point of Care Results Point of Care Results: Finger Stick Blood Glucose 138 04/06/25 07:20 Imaging and Studies Imaging and Studies Study information below may be from another EMR and interpreted by another provider. Please see original notes in EMR for more complete details. Other Study Summary:: historic 2022 aorta u/s and 2016 ct reviewed and results in chart Anesthesia Assessment and Plan Anesthesia History Personal History: No History of Anesthesia Complications Family History: No Family History of Anesthesia Complications Exercise Tolerance Exercise Tolerance: Metabolic Equivalents>4 Pertinent Negatives Pertinent Negatives: No Symptoms of GERD Cardiac & Pulmonary Exam Cardiac Exam: Normal S1/S2 Heart Sounds Pulmonary Exam: Clear Bilateral Breath Sounds Implantable Cardiac Device Does patient have a Pacemaker or an ICD?: No Airway Exam Known Difficult Airway: No Mallampati Class: 2 Mouth Opening: Normal (> 3cm) Thyromental Distance: Greater than 3 cm Neck Range of Motion: Full ROM Neck Circumference: Normal Teeth Condition: Normal Dentition and Removable Dentures/Plates Upper ASA Classification ASA Score: ASA 2 Emergency Case?: No NPO Status NPO Status: NPO Clears >2 hours, Solids >8 hours Anesthesia Plan Resuscitation Status: Full Code Anesthesia Technique: General Anesthesia Airway Planned: Natural Airway Monitors Used: Standard Monitors
[2025-04-06] MEDS: ceFAZolin 2 GM/50 ML BAG IVPB (09:27)
[2025-04-06] MEDS: Lidocaine 2% Jelly 11 ML SYR (09:35)
[2025-04-06 09:45] VITALS: BP 121/80; PULSE 58; RESP 18; TEMP 35.9; O2SAT 94
--- NOTE | 2025-04-06 09:45 | W.PM.DSUDISC ---
Date of service: 04/06/25 Discharge Plan Disposition Patient Disposition: Home Condition: Stable Discharge Details Reason For Visit: cystoscopy Attending Provider: Mode Nolasco Primary Care Provider: Aakash Villarreal Home Meds and New Rx's Prescriptions: No Action atorvastatin 20 mg tablet 20 mg PO DAILY Qty: 90 3RF metformin 1,000 mg tablet 1,000 mg PO BID Qty: 180 3RF fluoxetine [Prozac] 20 mg capsule 20 mg PO DAILY Qty: 90 3RF levothyroxine 137 mcg tablet 137 mcg PO DAILY Qty: 90 3RF lisinopril-hydrochlorothiazide 20-12.5 mg tablet 1 tab PO DAILY Qty: 90 3RF (DME) lancets [SolveBoardTouch UltraSoft Lancets] 1 EACH misc 1 ea Miscellaneous DAILY Qty: 90 4RF (DME) blood-glucose meter [SolveBoardTouch Ultra2 Meter] 1 EACH kit 1 ea Miscellaneous DAILY Qty: 1 3RF ONETOUCH ULTRA TEST STRIPS 1 EACH strip 1 ea Miscellaneous DAILY Qty: 90 3RF (DME) blood sugar diagnostic Strip See Rx Instructions .ROUTE .MEDSUPPLY Qty: 100 3RF Rx Instructions: test daily in a.m. ketoconazole 2 % cream 1 applic topical BID Qty: 30 1RF oxybutynin chloride 5 mg tablet 2.5 - 5 mg PO BID-TID PRN (Reason: bladder spasms) Qty: 30 1RF Discharge Instructions Additional Instructions: will need followup cystoscopy in 6 months (either in office or in OR) Activity:: Activity as Tolerated Shower/Bathe:: 24 hours Diet:: As Tolerated Discharge Orders Discharge Orders: Discharge Order (Routine); Ordered 04/06/25 Ordered By: Mode Nolasco DS: Diagnosis Discharge Diagnosis (1) Bladder cancer:
--- NOTE | 2025-04-06 09:47 | ROE_ITS ---
Operative Note Operative Note PRE-OP DIAGNOSIS: Bladder cancer POST-OP DIAGNOSIS: same PROCEDURE: cystoscopy SURGEON: Mode Nolasco ANESTHESIA TYPE: Local By Surgeon and General:No Airway Refer to Anesthesia Record ESTIMATED BLOOD LOSS: 5 PATHOLOGY: none sent COMPLICATIONS: None Patient was transported to: same day Patient's condition: stable Indications: This is a 79-year-old gentleman who has a history of urothelial cell carcinoma of the bladder. 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 He presents now for surveillance cystoscopy. Findings: no visible tumor Procedure Description: The patient was given IV antibiotics and brought to the operating room on 04/06/2025. After successful induction of general anesthesia, he was placed in the dorsal lithotomy position. His genitalia was prepped and draped. 2% Xylocaine jelly was instilled into the urethra to act as a local anesthetic. A 22 Ukrainian rigid cystoscope was passed through the urethra into the bladder. The urethra and bladder were inspected with the 30 degree lens. The pendulous, bulbar and membranous urethra appeared normal with no strictures. The prostatic urethra showed lateral lobe enlargement but no significant median lobe. No papillary lesions were seen along the course of the urethra. The bladder neck was entered and the bladder mucosa was inspected. We identified a scar from previous resection. Both ureteral orifices appeared normal. No blood was seen coming from either side. The remainder of the bladder showed no papillary or nodular lesions. These findings were confirmed on reinspection of the bladder using a 70 degree lens. The bladder was emptied and the cystoscope was removed. The patient tolerated the procedure well with no complications. Date of Procedure: 04/06/25
[2025-04-06] MEDS: Phenazopyridine 200 MG TAB PO (09:59)
--- NOTE | 2025-04-06 10:11 | W.ANESPOSTOP ---
Postoperative Evaluation Date, Time and Location Date Performed: 04/06/25 Time Performed: 10:11 Patient Location: Day Surgery Unit Vital Signs Most Recent Imported Vital Signs: Most Recent Vital Signs Temp Pulse Resp BP Pulse Ox 35.9 C L 58 L 18 121/80 94 04/06/25 09:45 04/06/25 09:45 04/06/25 09:45 04/06/25 09:45 04/06/25 09:45 Pain Score Most Recent Pain Score: Most Recent Pain Score Pain Level 0 04/06/25 09:45 Assessment Mental Status: Awake (Alert & Oriented to Patient Baseline) Airway and Respiratory Function: Patent airway with normal (patient baseline) respiratory exam Cardiovascular Function: Hemodynamically Stable Hydration Status: Adequately Hydrated Nausea & Vomiting: No Nausea or Vomiting Pain: Pt. Denies Any Pain Peripheral Nerve Block: Patient did not receive a nerve block
[2025-04-06 10:17] VITALS: BP 141/85; PULSE 53; RESP 18; TEMP 36.1; O2SAT 98
== END 2025-04-06 10:29 | disposition home or self-care (01) ==
PROVIDERS: PCP Family Medicine; Visit Provider Urology
PROC: 0TBB8ZZ Excision of Bladder, Via Natural or Artificial Opening Endoscopic (ICD-10-PCS; CPT 52000; principal; 2025-04-06 08:30)
DX: Z08 Encounter for follow-up examination after completed treatment for malignant neoplasm (principal); C67.9 Malignant neoplasm of bladder, unspecified
CPT/HCPCS: 52000; J0690; J2003; J2704

== ENCOUNTER 2025-06-14 10:16 | Emergency (ER) | payer MEDICARE, BC, SELFPAY ==
[2025-06-14 10:19] VITALS: BP 108/78; PULSE 78; RESP 16; TEMP 36.7; O2SAT 95
[2025-06-14 10:24] VITALS: BP 108/78; PULSE 78; RESP 16; TEMP 36.7; O2SAT 95
--- NOTE | 2025-06-14 10:31 | W.ED.GENAD ---
Discharge Plan Disposition Patient Disposition: Home Discharge Details Clinical Impression: Animal bite of right thumb Primary Care Provider: Aakash Villarreal ED Provider: Elías Mcneil [facility] Meds and New Rx's Prescriptions: New amoxicillin-pot clavulanate 875-125 mg tablet 1 tab PO BID 5 Days Qty: 10 0RF Continued atorvastatin 20 mg tablet 20 mg PO DAILY Qty: 90 3RF metformin 1,000 mg tablet 1,000 mg PO BID Qty: 180 3RF fluoxetine [Prozac] 20 mg capsule 20 mg PO DAILY Qty: 90 3RF levothyroxine 137 mcg tablet 137 mcg PO DAILY Qty: 90 3RF lisinopril-hydrochlorothiazide 20-12.5 mg tablet 1 tab PO DAILY Qty: 90 3RF (DME) lancets [OneTouch UltraSoft Lancets] 1 EACH misc 1 ea Miscellaneous DAILY Qty: 90 4RF (DME) blood-glucose meter [OneTouch Ultra2 Meter] 1 EACH kit 1 ea Miscellaneous DAILY Qty: 1 3RF ONETOUCH ULTRA TEST STRIPS 1 EACH strip 1 ea Miscellaneous DAILY Qty: 90 3RF (DME) blood sugar diagnostic Strip See Rx Instructions .ROUTE .MEDSUPPLY Qty: 100 3RF Rx Instructions: test daily in a.m. ketoconazole 2 % cream 1 applic topical BID Qty: 30 1RF oxybutynin chloride 5 mg tablet 2.5 - 5 mg PO BID-TID PRN (Reason: bladder spasms) Qty: 30 1RF Discharge Instructions Additional Instructions: You were seen in the emergency department for your weasel bite. Your tetanus was updated. Please take these antibiotics as directed to prevent infection. You have been scheduled to return to have rabies vaccines ordered. You need to return in 3 days, 7 days, and 14 days. Please return between now and then if you develop streaking signs of infection fevers or any foul-smelling drainage. Otherwise please follow-up as needed with your primary care provider. Stand Alone Forms: Portal Information Discharge Data Discharge Date/Time-TO BE ENTERED AT DEPARTURE: 06/14/25 11:30 HPI General Date/Time Provider Initiated Documentation: 06/14/25 10:30. HPI Narrative: MDM This is a quite well-appearing [id number] normothermic and not tachycardic 79-year-old diabetic male with small puncture wounds from weasel bite for which he will receive tetanus immunization, rabies immunoglobulin and vaccination along with prophylactic antibiotics and empiric trial of discharge with expectant outpatient management. No pain on proportion to suggest necrotizing soft tissue infection. Given small puncture wounds my suspicion for any retained teeth is low so do not feel patient requires an x-ray of his thumb. Intact range of motion in thumb so I am not suspicious for any ligamentous injuries. Patient and I discussed return indications including streaking signs of infection fevers or any foul-smelling drainage from his wounds. I have completed prophylactic rabies immunization form and provided to health community development aide Isaura. HPI The patient presents for a weasel bite. The patient reports an incident this morning at 8:45 AM, where he was bitten on the right thumb by a weasel while attempting to remove it from his cat's mouth. The bite resulted in bleeding. He is able to move his thumb without any significant pain, although he does experience mild discomfort. Patient reports that he is able to clean his wound at home and irrigate with hydroperoxide. The patient is prediabetic and takes metformin. Exam General: Well-appearing in no acute distress speaking in complete sentences. Head: Normocephalic, atraumatic. Eye: Extraocular eye movements intact. No conjunctival injection. No scleral icterus. Ear, nose, mouth, throat: Grossly normal inspection. Normal voice, handling secretions normally. Neck: Trachea midline. Cardiovascular: Well-perfused distal extremities. Respiratory: Nonlabored respiration. Gastrointestinal: Nondistended abdomen. Musculoskeletal: On the volar surface of the right thumb there are 2 small 1 mm superficial puncture wounds. No bleeding. Intact range of motion in the right thumb in flexion extension at the MCP and IP joints. Patient is able to both ulnar and radially deviate his thumb. Skin: Normal for age and race, grossly normal temperature and turgor. No acute rash. Neurologic: Alert and appropriate, no apparent acute deficits. Psychiatric: Mood and manner are appropriate. Grooming and personal hygiene are appropriate. Related Data Home Medications ?Medication ?Instructions ?Recorded ?Confirmed blood-glucose meter (OneTouch ##1 11/14/17 06/14/25 Ultra2 Meter kit) lancets (OneTouch UltraSoft #90 ea 11/14/17 06/14/25 Lancets) blood sugar diagnostic #100 ea 02/04/24 06/14/25 atorvastatin 20 mg tablet 20 mg PO DAILY #90 tabs 05/20/24 06/14/25 fluoxetine 20 mg capsule (Prozac) 20 mg PO DAILY #90 caps 05/20/24 06/14/25 levothyroxine 137 mcg tablet 137 mcg PO DAILY #90 tab-caps 05/20/24 06/14/25 lisinopril 20 1 tab PO DAILY #90 tab-caps 05/20/24 06/14/25 mg-hydrochlorothiazide 12.5 mg tablet metformin 1,000 mg tablet 1,000 mg PO BID #180 tabs 05/20/24 06/14/25 ketoconazole 2 % topical cream 1 applic topical BID #30 grams 10/13/24 06/14/25 oxybutynin chloride 5 mg tablet 2.5 - 5 mg (0.5 - 1 x 5 mg) PO 03/18/25 06/14/25 BID-TID PRN bladder spasms #30 tabs amoxicillin 875 mg-potassium 1 tab PO BID 5 days #10 tabs 06/14/25 clavulanate 125 mg tablet Previous Rx's ?Medication ?Instructions ?Recorded blood-glucose meter (OneTouch ##1 11/14/17 Ultra2 Meter kit) lancets (OneTouch UltraSoft #90 ea 11/14/17 Lancets) blood sugar diagnostic #100 ea 02/04/24 atorvastatin 20 mg tablet 20 mg PO DAILY #90 tabs 05/20/24 fluoxetine 20 mg capsule (Prozac) 20 mg PO DAILY #90 caps 05/20/24 levothyroxine 137 mcg tablet 137 mcg PO DAILY #90 tab-caps 05/20/24 lisinopril 20 1 tab PO DAILY #90 tab-caps 05/20/24 mg-hydrochlorothiazide 12.5 mg tablet metformin 1,000 mg tablet 1,000 mg PO BID #180 tabs 05/20/24 ketoconazole 2 % topical cream 1 applic topical BID #30 grams 10/13/24 oxybutynin chloride 5 mg tablet 2.5 - 5 mg (0.5 - 1 x 5 mg) PO 03/18/25 BID-TID PRN bladder spasms #30 tabs amoxicillin 875 mg-potassium 1 tab PO BID 5 days #10 tabs 06/14/25 clavulanate 125 mg tablet Allergies Allergy/AdvReac Type Severity Reaction Status Date / Time amlodipine AdvReac Intermediate headache Verified 06/14/25 10:22 General Stated Complaint: AnimalBite DENNIS: 4 Course Vital Signs Vital signs: Vital Signs Temperature 36.7 C 06/14/25 10:19 Pulse 78 06/14/25 10:19 Respiratory Rate 16 06/14/25 10:19 Blood Pressure 108/78 06/14/25 10:19 Pulse Oximetry 95 06/14/25 10:19 Temperature 36.7 C 06/14/25 10:24 Pulse 78 06/14/25 10:24 Respiratory Rate 16 06/14/25 10:24 Blood Pressure 108/78 06/14/25 10:24 Pulse Oximetry 95 06/14/25 10:24 Oxygen Delivery Method Room Air 06/14/25 10:24 Oxygen Flow Rate 0 06/14/25 10:24 PFSH All Active Problems (Updated 06/14/25 @ 10:50 by Elías Mcneil MD) Animal bite of right thumb (Acute) Foreign body in ear (Acute) Scrotal rash (Acute) Right leg weakness (Acute) Encounter for screening colonoscopy (Acute) Family history of leukemia (Acute) Leg weakness (Acute) Vitamin D insufficiency (Acute) History of smoking (Acute) COVID-19 (Acute) Urgency incontinence (Acute) Sensorineural hearing loss (SNHL) of both ears (Acute) Hearing loss (Acute) Acute pain of left ear (Acute) History of Achilles tendon repair (Acute 09/01/15) History of discectomy (Acute) Olecranon bursitis (Acute) Status post inguinal hernia repair (Acute) Lumbago (Acute) disc surgery 2003 Hypothyroidism (Acute) Hyperuricemia (Acute 12/06/16) gout Hypercholesterolemia (Acute) Essential hypertension (Acute) Elev transaminase/LDH (Acute 06/14/07) elevated LFT's; (4 drinks/night) elevated GGT; neg. viral hep screen; neg. ferritin; LFT's decreased off ETOH arora Diabetes mellitus (Acute) diet controlled Depressive disorder (Acute) BPH associated with nocturia (Acute 12/06/16) Cardiac arrhythmia (Acute 06/14/07) SINUS LISSA Medical History Tubular adenoma of colon (~02/2024) Bladder cancer Hypertension Hypothyroidism DM (diabetes mellitus) Surgical History H/O Achilles tendon repair right TURBT 01/26/17-DR. PIZARRO PROCEDURES EXC/DEST INTVRT DISC NOS, 2004 05/10/17 DR. PIZARRO; CYSTOSCOPY, B/L RETROGRADE PYELOGRAM, BLADDER BX WITH FULGURATION Repair of inguinal hernia (~2003) Colonoscopy - MAC (01/2024) Family History Mother Personal history of malignant neoplasm COLON Father Hyperlipidemia Brother Personal history of malignant neoplasm SKIN Social History Smoking/Tobacco Use Status: Former Tobacco Use tobacco type: cigarettes and pipe Quit Date: 07/16/79 Second Hand Exposure: Yes Smoking risk assessment performed?: Yes Alcohol Intake: current Alcohol Intake frequency: a few times a week Alcohol type: beer and wine Drug use: Never Caregiver/Support person: No Household members: spouse Housing: house Communication Needs: Hard of Hearing Do you need help understanding health information?: Never Pets and animals: Yes Sexually active: Yes Do you think of yourself as: straight/heterosexual Current gender identity: male What is your relationship status?: How often do you talk on the phone with friends or family?: once per week How often do you get together with friends or relatives?: once per week How often do you attend evangelical or restorationism services?: 1-3 times per year Do you belong to any clubs or organized social groups?: no Panel score (0-1 are the most socially isolated patients): 1 What type of physical activity do you participate in: walking Duration: 15-30 minutes/day Frequency: 1-2 times per week Seatbelt use: always Drive intox or ride w/intox tanker driver: No Do you feel safe at home: Yes Do you feel safe in your relationship?: Yes PAWSS Have you Been Recently Intoxicated or Drunk Within the Last 30 days?: No Have you Ever Experienced Previous Episodes of Alcohol Withdrawal?: No Have you ever Experienced Withdrawal Seizures?: No Have you ever Experienced Delirium Tremens(DT)s?: No Have you ever undergone Alcohol Rehabilitation Treatment (i.e, inpt ot outpatient treatment programs)?: No Have you ever Experienced Blackouts?: No Have you ever Combined Alcohol with other Downers within the last 90 days?: No Have you ever Combined Alcohol with any other Substance of Abuse during the last 90 days?: No Result: 0
[2025-06-14] MEDS: Amoxicillin 875/Clav. 125 TAB PO (11:11)
[2025-06-14] MEDS: Acetaminophen 500 MG TAB 1000 MG PO (11:11)
[2025-06-14] MEDS: Diph,Pertuss(Acell),Tet Vac/Pf 0.5 ML SYR IM (11:12)
[2025-06-14] MEDS: Rabies vaccine (PCEC)/PF 2.5 UNITS/ML VIAL IM (11:13)
[2025-06-14] MEDS: Rabies Immune Globulin 300 UNIT/ML VIAL 1800 UNIT IM (11:13)
--- NOTE | 2025-06-14 11:15 | NUR.NOTE ---
Faxed rabies vaccine orders to Infusion. Day 3= Jun 3. Day 7= 7. Day 14= . Nursing Note:
--- NOTE | 2025-06-14 11:20 | NUR.NOTE ---
Addendum entered by Isaura Corcoran 06/15/25 14:16: Dr. Gallagher is aware of the report. The [facility] clerk has the report. It was emailed to [email or web address]. Original Note: Sent Webex message to Dr. Gallagher, [place] health officer that there was a bite by a weasel and that the report will be faxed tomorrow. He can reach out to ED for specific information. Nursing Note:
== END 2025-06-14 11:30 | disposition home or self-care (01) ==
PROVIDERS: Emergency Provider Emergency Medicine; PCP Family Medicine
DX: S60.371A Other superficial bite of right thumb, initial encounter (principal); I10 Essential (primary) hypertension; E03.9 Hypothyroidism, unspecified; E11.9 Type 2 diabetes mellitus without complications; Z79.84 Long term (current) use of oral hypoglycemic drugs; Z87.891 Personal history of nicotine dependence; W55.81XA Bitten by other mammals, initial encounter; Y93.K9 Activity, other involving animal care; Z23 Encounter for immunization
CPT/HCPCS: 90375; 90471; 90472; 90715; 96372; 99283; 90675